=== PATIENT | male | born 1940 | race Caucasian/White ===

== ENCOUNTER 2018-11-24 11:56 | Inpatient (IN) | payer MEDICARE, MEDICAID ==
--- NOTE | 2018-11-24 12:24 | CT ---
CT BRAIN WITHOUT CONTRAST: HISTORY:Fall COMPARISON:02/01/2005 FINDINGS: There are foci of decreased attenuation in the periventricular white matter, consistent with chronic small vessel ischemic disease. No evidence of acute infarct, hemorrhage, midline shift or abnormal extra-axial fluid collections is seen. The ventricular size is appropriate and the basilar cisterns are patent. The bony calvarium is intact. There is mucosal disease in the paranasal sinuses. IMPRESSION: No CT evidence of acute intracranial process.
--- NOTE | 2018-11-24 12:35 | CT ---
CT CERVICAL SPINE NONCONTRAST: 11/24/18 HISTORY: 78-year-old male status post acute cervical trauma from fall. FINDINGS: There are no jumped or perched facets. There is no evidence of acute fracture. The vertebral body h eights are maintained. There is no prevertebral soft tissue swelling. IMPRESSION: No evidence of acute fracture or acute traumatic subluxation. jn [] POS: TPC
[2018-11-24 12:39] LABS: Hemoglobin 8.2 g/dL (14.0-18.0); Mean Corpuscular HGB CONC 30.9 g/dL (32.0-36.0); Mean Corpuscular Hemoglobin 23.1 pg (27.0-31.0); Mean Corpuscular Volume 74.7 fL (78.0-98.0); Platelet Count 315 thou/uL (130-400); RBC Distribution Width 18.4 % (11.5-14.5); Red Blood Cell (RBC) Count 3.57 mill/uL (4.70-6.10)
--- NOTE | 2018-11-24 12:39 | CT ---
CT CHEST WITH IV CONTRAST CT ABDOMEN WITH IV CONTRAST CT PELVIS WITH IV CONTRAST CORONAL AND SAGITTAL REFORMATTED FORMATIONS OF THE THORACOLUMBAR SPINE: HISTORY: Fall, chest pain, back pain, abdominal pain COMPARISON: 07/18/2004 FINDINGS: No mediastinal hematoma or intimal flap in the aorta is seen to suggest transection. No pericardial e ffusion is seen. There is a small right pleural effusion. There is intrathoracic herniation of the stomach which is also seen on the previous study. There is dilatation of the esophagus. No pneumothor aces are seen. There is atelectatic change at the lung bases. There is a 12 x 14 x 15 mm irregular nodule in the left lower lobe. A 1 cm low-density lesion is seen in the anterior aspect of the medial segment of the left lobe of th e liver. There are cysts in the left kidney. The liver, spleen, pancreas, adrenal glands and kidneys are intact. No free air or free fluid is seen in the abdomen or pelvis. The prostate is enlarged. There are degen erative changes in the spine. No acute fracture or subluxation is identified in the thoracolumbar spine. No acute bony abnormalities are noted. The gallbladder and urinary bladder appear intact. IMPRESSION: 1. No evidence of acute intrathoracic or solid organ injury. 2. Irregular left lower lobe lung nodule measuring up to 15 mm. This is a suspicious finding and shou ld be evaluated with PET scan. 3. Small right pleural effusion. 4. Intrathoracic herniation of the stomach.
--- NOTE | 2018-11-24 12:41 | RAD ---
EXAM: LEFT SHOULDER THREE VIEWS: 11/24/18 HISTORY: Injury from a fall. FINDINGS/IMPRESSION: Mild degenerative changes. No fracture, dislocation, or other significant acute osseous abnormality. POS: C
--- NOTE | 2018-11-24 12:49 | RAD ---
RADIOGRAPH CHEST 1 VIEW: Date: 11/24/18 Time: 12:17 p.m. HISTORY: 78-year-old male with chest pain. COMPARISON: 09/03/2006. FINDINGS: The previously demonstrated large hiatal hernia is much larger now, due to severe gastric distention. The entire stomach is within the thoracic cavity. There is no cardiomegaly. The large hiatal hernia obscures the left lung base and partially obscures the right medial lung base. The visualized lung fi elds are grossly clear. No pulmonary edema or pneumothorax. No cardiomegaly. IMPRESSION: Very large hiatal hernia exacerbated by severe gastric distention. Consider gastric volvulus. JN [] POS: TPC
--- NOTE | 2018-11-24 12:50 | RAD ---
RIGHT ELBOW TWO VIEWS: 11/24/18 HISTORY: Injury from a fall. Mild degenerative changes. No fracture, dislocation, joint effusion or other acute process. IMPRESSION: Unremarkable right elbow two views. POS: C
[2018-11-24 12:53] LABS: INR-International Normal Ratio 1.3; PTT 35.2 SEC (22.9-36.1); Prothrombin Time 16.3 SEC (12.0-14.7)
[2018-11-24 12:58] LABS: ALT (SGPT) Less than 7 U/L (8-55); AST (SGOT) 12 U/L (5-34); Albumin 2.6 g/dL (3.4-4.8); Alcohol Less than 10 mg/dL (Less than 10); Alkaline Phosphatase 54 U/L (40-150); Anion Gap 13 mmol/L (10-20); BUN (Urea Nitrogen) 29 mg/dL (8.4-25.7); Bilirubin, Total 0.4 mg/dL (0.2-1.2); Calc. Creatinine Clearance 0 mL/min (70-130); Calcium 7.9 mg/dL (7.8-10.44); Carbon Dioxide 20 mmol/L (23-31); Chloride 98 mmol/L (98-107); Estimated GFR-MDRD 81; Globulin 2.3 g/dL (2.4-3.5); Glucose 129 mg/dL (83-110); Lipase 4 U/L (8-78); Potassium 4.4 mmol/L (3.5-5.1); Protein, Total 4.9 g/dL (5.8-8.1); Sodium 127 mmol/L (136-145)
[2018-11-24 13:04] LABS: Band 2 % (5-11); Hypochromia SLIGHT = 6-15 cells (100X) (0-5/hpf); Lymphocytes 5 % (21-51); MDiff Complete? YES; Microcytosis SLIGHT = 6-15 cells (100X) (0-5/hpf); Monocytes 2 % (0-10); Neutrophil 91 % (42-75); Platelet Morphology Comment Appears Adequate; Polychromasia SLIGHT = 2-3 cells (100X) (0-2/hpf)
[2018-11-24] MEDS ORDERED: Ondansetron ODT 4 MG TAB PO PRN (14:25)
[2018-11-24 15:08] LABS: Iron 23 ug/dL (65-175); Iron Binding Capacity, Total 285 mcg/dL (261-462)
--- NOTE | 2018-11-24 15:21 | ULT ---
Carotid duplex sonogram HISTORY: Dizziness. TIA. FINDINGS: Right: No significant plaque. Color and spectral Doppler evaluation, peak systolic velocity of 92 cm/ s, and IC to CC ratio 1.1 suggest no hemodynamically significant stenosis within the extra cranial right ICA. Antegrade flow within the vertebral artery. Left: No significant plaque evident. Color and spectral Doppler evaluation, peak systolic velocity of 64 cm/s, and IC to CC ratio of 0.7 suggest no hemodynamically significant stenosis within the extracranial left ICA. Antegrade flow within the vertebral artery. IMPRESSION: No significant plaque apparent. No sonographic evidence of significant extracranial ICA s tenosis.
[2018-11-24 15:42] LABS: Troponin I Less than 0.010 ng/mL (< 0.028)
--- NOTE | 2018-11-24 16:05 | HP ---
PRIMARY CARE PROVIDER: Lynda Hairston. HISTORY OF PRESENT ILLNESS: [place] He relates that he falls once or twice or three times a year, has occasional dizzy spells. He states he is competent in the activities of daily living. He states he hurts in his arms and shoulders. He is oriented x3. Emergency Room nurse staff spoke with his brother, who says that he does walk, but not very far not very much. PAST MEDICAL HISTORY: No history of heart disease, diabetes, or hypertension. He has elevated cholesterol and gastroesophageal reflux disease, for which he takes Nexium 20 mg a day and pravastatin unknown dose. ALLERGIES: HE SAYS HE ALLERGIC TO CODEINE, BECAUSE IT MAKES HIM SLEEPY. PAST SURGICAL HISTORY: Bilateral inguinal hernia repair. FAMILY HISTORY: No hypertension, diabetes, or coronary artery disease. SOCIAL HISTORY: He is . His brother, Edwin Coronel, is next of kin for decision making. He does not smoke or drink alcohol. He states he wants to be a full code status. He names Edwin Coronel is a next of kin. REVIEW OF SYSTEMS: GENERAL: Dizzy spells, but no fainting. He describes some is lightheaded. No fever or chills. EYES: He has blurry vision at time. No double vision or flashing lights. No tunnel vision. EAR, NOSE, AND THROAT: No ear pain or drainage. No nasal bleeding. No trouble swallowing. CARDIAC: No chest pain, orthopnea, or paroxysmal nocturnal dyspnea. RESPIRATION: No cough, wheezing, or asthma. GASTROINTESTINAL: No nausea, vomiting, abdominal pain, diarrhea, constipation, or melena. GENITOURINARY: No hematuria or dysuria. MUSCULOSKELETAL: He states since he has had these falls, he has pain in his shoulders and upper arms. NEUROLOGIC: No history of stroke, seizures, or focal weakness. SKIN: He says he bruises easily. HEME/LYMPH: No tender or swollen lumps under his arms, neck, or groin. PHYSICAL EXAMINATION: VITAL SIGNS: His blood pressure was 77 systolic. Per EMT, he was given fluids in the ER and it is 120/82 currently, 92 pulse, 25 respirations, and temperature 98.4. HEAD, EYES, EARS, NOSE, AND THROAT: Examination of his head eyes ears, nose, and throat revealed pupils are equal, round, and reactive. Extraocular movements are intact. Sclerae are white. Tympanic membranes clear. Nose is clear. Oral mucous membranes are wet. He has edentulous. NECK: No jugular venous distention, adenopathy or thyromegaly. CHEST: Clear to percussion. Breath sounds are adequate. HEART: Regular rate and rhythm. ABDOMEN: Soft. Bowel sounds normal. No hepatosplenomegaly. No mass. No rebound. EXTREMITIES: No cyanosis, clubbing, or edema. PULSES: Carotid, radial, femoral, and dorsalis pedis pulses palpable. SKIN: Old and new hematomas on his upper chest. Soreness in the muscles of his chest. LYMPHATIC SURVEY: No tender or swollen lymph nodes in the axilla, inguinal, and cervical area. NEUROLOGIC: Cranial nerves 2 through 12 intact. Moves all extremities. Toes downgoing. DIAGNOSTIC DATA: EKG, regular sinus rhythm, left axis deviation, first degree AV block, Q-waves in V2 and V3 consistent with old anterior myocardial infarction, some nonspecific T-wave changes reviewed by me. Chest x-ray reviewed by myself reveals a massive hiatal hernia with what appears to be his entire stomach and his chest. The cardiac silhouette is normal. The nonobscured lung andersen appear to be normal. Shoulder x-ray of left shows only mild degenerative changes. Brain CT reveals no acute intracranial process. Elbow x-ray on the right is unremarkable. CT of the abdomen, chest, and pelvis reveals small right pleural effusion and intrathoracic herniation of the stomach. Cervical spine CT, no evidence of acute fracture or subluxation. LABORATORY DATA: White count is 23,000, hemoglobin is 8.2 with microcytic microchromic indices, and absolute neutrophilia. INR is 1.3. Sodium is 127, potassium is 4.4, CO2 is 20, BUN is 29, creatinine 0.9. Liver function tests are unremarkable. Lactic acid is 1.6. Plasma alcohol is unremarkable. ADMITTING DIAGNOSES: 1. Hypotension, on IV fluids. 2. Frequent falls. 3. Anemia, apparently microcytic microchromic not in need of immediate transfusion. Iron and iron binding studies will be obtained. 4. Massive hiatal hernia, apparently asymptomatic. 5. Abnormal EKG with evidence of old infarct. I do not suspect an acute process. However, we will go ahead and obtain serial troponins just to be sure. 6. Dizzy spells. Carotid ultrasounds will be done. 7. Dyslipidemia. 8. Gastroesophageal reflux disease. In addition to above, PT/OT will be consulted. Rehab consult will be obtained. Further evaluation as well as treatment will be based on future data. Job ID: [id number] MTDD
[2018-11-24] MEDS ORDERED: ISOVUE-370 76%-LOCM 1 ML ONE (16:24)
[2018-11-24 16:59] VITALS: BMI 19.9
[2018-11-24] MEDS: cefTRIAXone\\ROCEPHIN 2 GM in Sodium Chloride 0.9% 100 ML IVPB SCH (17:00)
[2018-11-24] MEDS: Sodium Chloride 0.9% 1,000 ML IV SCH (17:00)
[2018-11-24 17:58] LABS: Bilirubin Negative (Negative); Blood, Urine Large (Negative); Clarity CLEAR (Clear); Glucose, Urine (Dipstick) Negative (Negative); Leukocyte Trace (Negative); Nitrite Negative (Negative); Protein, Urine (Dipstick) Trace mg/dL (Neg-Trace); pH, Urine 5.5 (5.0-9.0)
[2018-11-24 18:00] LABS: Bacteria/HPF None Seen HPF (None Seen); Hyaline Casts/LPF 4-6 HYALINE CAST LPF (0-3 Hyaline); Pathc Cast-AUWi Flag 0.54 (0-2.49); RBC/HPF GREATER THAN 50-TNTC HPF (0-3); Squamous Epithelial 0-3 HPF (0-3)
[2018-11-24 18:02] LABS: Specific Gravity, Urine 1.047 (1.002-1.036)
[2018-11-24 18:16] LABS: Renal Epithelial None Seen HPF (0-3); Transitional Epithelial NONE SEEN HPF (0-3)
[2018-11-24] MEDS: Acetaminophen 325 MG TAB PO PRN (18:40)
[2018-11-24 18:46] LABS: Hemoglobin 7.8 g/dL (14.0-18.0); Platelet Count 333 thou/uL (130-400)
[2018-11-24 19:11] LABS: Troponin I Less than 0.010 ng/mL (< 0.028)
[2018-11-24] MEDS: traMADol HCl 50 MG TAB PO PRN (21:33)
[2018-11-24 21:57] LABS: Troponin I Less than 0.010 ng/mL (< 0.028)
[2018-11-25 00:15] LABS: Hemoglobin 7.3 g/dL (14.0-18.0); Platelet Count 293 thou/uL (130-400)
[2018-11-25] MEDS: Acetaminophen 325 MG TAB PO PRN ×3 (03:34→21:30)
[2018-11-25] MEDS: Sodium Chloride 0.9% 1,000 ML IV SCH ×2 (03:38→17:48)
[2018-11-25 06:21] LABS: Hemoglobin 7.1 g/dL (14.0-18.0); Platelet Count 282 thou/uL (130-400)
[2018-11-25 06:35] LABS: Mean Corpuscular HGB CONC 32.3 g/dL (32.0-36.0); Mean Corpuscular Hemoglobin 24.1 pg (27.0-31.0); Mean Corpuscular Volume 74.8 fL (78.0-98.0); Mean Platelet Volume 7.7 fL (7.4-10.4); Platelet Count 271 thou/uL (130-400); RBC Distribution Width 18.5 % (11.5-14.5); Red Blood Cell (RBC) Count 2.89 mill/uL (4.70-6.10); White Blood Cell (WBC) Count 12.1 thou/uL (4.8-10.8)
[2018-11-25 06:38] LABS: Anion Gap 9 mmol/L (10-20); BUN (Urea Nitrogen) 27 mg/dL (8.4-25.7); Calc. Creatinine Clearance 85 mL/min (70-130); Calcium 7.8 mg/dL (7.8-10.44); Carbon Dioxide 22 mmol/L (23-31); Chloride 103 mmol/L (98-107); Estimated GFR-MDRD Greater than 90; Glucose 112 mg/dL (83-110); Potassium 3.7 mmol/L (3.5-5.1); Sodium 130 mmol/L (136-145)
[2018-11-25 08:36] LABS: Band 4 % (5-11); Hypochromia SLIGHT = 6-15 cells (100X) (0-5/hpf); Lymphocytes 15 % (21-51); MDiff Complete? YES; Microcytosis SLIGHT = 6-15 cells (100X) (0-5/hpf); Monocytes 3 % (0-10); Neutrophil 78 % (42-75); Platelet Morphology Comment Appears Adequate; Polychromasia SLIGHT = 2-3 cells (100X) (0-2/hpf)
[2018-11-25 13:52] LABS: Iron 18 ug/dL (65-175); Iron Binding Capacity, Total 285 mcg/dL (261-462)
[2018-11-25] MEDS: cefTRIAXone\\ROCEPHIN 2 GM in Sodium Chloride 0.9% 100 ML IVPB SCH (14:01)
[2018-11-25 14:17] LABS: Folate (Folic Acid) 5.1 ng/mL (7.0-31.4)
[2018-11-25] MEDS ORDERED: Folic Acid 1 MG TAB PO SCH (14:30)
[2018-11-25] MEDS ORDERED: Cyanocobalamin (Vitamin B-12) 1,000 MCG TAB PO SCH (14:30)
[2018-11-25] MEDS ORDERED: Vancomycin HCl 1 GM in Premix Bag 1 BAG IVPB SCH (16:15)
[2018-11-25] MEDS ORDERED: Vancomycin HCl 1.25 GM in Sodium Chloride 0.9% 250 ML 250 ML IVPB SCH (17:15)
--- NOTE | 2018-11-25 17:31 | PDOC.GSPN ---
Surgery Progress Note: Subj - Subjective Narrative: c/o bloating, anorexia and feeling full fast Surgery Progress Note: Obj - Vital signs Vital signs: Vital Signs - Most Recent Temp Pulse Resp BP Pulse Ox 98.8 F 86 18 128/87 95 11/25/18 17:12 11/25/18 17:12 11/25/18 17:12 11/25/18 17:12 11/25/18 17:12 - Physical Exam General: no distress Cardiovascular: regular rate and rhythm Respiratory: coarse breath sounds Abdomen: soft, non tender, nondistended Surgery Progress Note: Results - Labs Result Diagrams: 11/25/18 05:51 11/25/18 05:51 Lab results: Laboratory Results - last 24 hr 11/25/18 11/25/18 11/25/18 05:51 05:51 05:51 WBC 12.1 H RBC 2.89 L Hgb 7.0 L 7.1 L Hct 21.6 L 21.7 L MCV 74.8 L MCH 24.1 L MCHC 32.3 RDW 18.5 H Plt Count 271 282 MPV 7.7 Neutrophils % (Manual) 78 H Band Neuts % (Manual) 4 L Lymphocytes % (Manual) 15 L Monocytes % (Manual) 3 Hypochromia SLIGHT = 6-15 cells Plt Morphology Comment Appears Adequate Polychromasia SLIGHT = 2-3 cells Microcytosis SLIGHT = 6-15 cells Sodium 130 L Potassium 3.7 Chloride 103 Carbon Dioxide 22 L Anion Gap 9 L BUN 27 H Creatinine 0.69 L Estimated GFR (MDRD) Greater than 90 Glucose 112 H Calcium 7.8 Iron TIBC Ferritin Vitamin B12 Folate 11/25/18 11/25/18 11/25/18 13:18 13:18 13:18 WBC RBC Hgb Hct MCV MCH MCHC RDW Plt Count MPV Neutrophils % (Manual) Band Neuts % (Manual) Lymphocytes % (Manual) Monocytes % (Manual) Hypochromia Plt Morphology Comment Polychromasia Microcytosis Sodium Potassium Chloride Carbon Dioxide Anion Gap BUN Creatinine Estimated GFR (MDRD) Glucose Calcium Iron 18 L TIBC 285 Ferritin 27.20 Vitamin B12 340 Folate 5.10 L Surgery Progress Note: A/P - Problem (1) Hiatal hernia Current Visit: Yes Code(s): K44.9 - DIAPHRAGMATIC HERNIA WITHOUT OBSTRUCTION OR GANGRENE Status: Acute - Plan Plan: Not amenable to repair from an abdominal approach. Will discuss with Dr. Lynn. Could refer for outpatient repair by Chest surgeon in [place] or [place].
--- NOTE | 2018-11-25 18:02 | CON ---
DATE OF CONSULTATION: 11/25/2018 REASON FOR CONSULTATION: Anemia. CONSULTING PHYSICIAN: Camacho Sanders MD HISTORY OF PRESENT ILLNESS: The patient is a 78-year-old male with past medical history of hyperlipidemia, GERD, and peptic ulcer disease (diagnosed in 2004), presenting with anemia. He was initially admitted to the hospital after sustaining a fall yesterday with bruising to his right upper extremity and chest. However upon evaluation in the ER, routine labs noted that he was significantly anemic with a current hemoglobin of approximately 7. Upon questioning the patient, he states that he did have some hematuria yesterday with the initiation of an in and out catheterization for urine specimen collection, but does not endorse any other additional episodes of bleeding. He currently denies any hematemesis, melena, or hematochezia. However, he does endorse early satiety that has been present for the last few months, increased shortness of breath/dyspnea on exertion for the last 2 to 3 months and possible constipation also during this time period. He currently denies any nausea, vomiting, fevers, chills, abdominal pain, dysphagia, or odynophagia. REVIEW OF SYSTEMS: A 10-category review of systems was obtained with all responses negative except for the pertinent positives as listed in HPI. PAST MEDICAL HISTORY: As per HPI. PAST SURGICAL HISTORY: Bilateral inguinal hernia repair. FAMILY HISTORY: Denies any GI malignancies. SOCIAL HISTORY: Denies any tobacco, alcohol, or illicit drug use. OUTPATIENT MEDICATIONS: Reviewed. ALLERGIES: CODEINE. PHYSICAL EXAMINATION: VITAL SIGNS: Temperature 98.3, pulse 84, blood pressure 117/75, respiratory rate 18, and saturating 96% on room air. GENERAL: The patient was lying in bed, in no acute distress. Alert and oriented x3. HEENT: Neck supple. No JVD or scleral icterus noted. Normocephalic and atraumatic. CARDIOVASCULAR: Regular rate and rhythm with no discernible murmurs, gallops, or rubs. RESPIRATORY: Clear to auscultation bilaterally with no discernible wheezes or rales. ABDOMEN: Normoactive bowel sounds. Soft, nontender, and nondistended. EXTREMITIES: No cyanosis, clubbing, or edema. LABORATORY DATA: CBC with a white blood cell count of 12.1, hemoglobin 7, hematocrit 21.6, and platelets 271. INR 1.3. Chemistry with a sodium of 130, potassium 3.7, chloride 103, CO2 of 22, BUN 27, creatinine 0.69, and glucose 112. Iron 18, ferritin 27, TIBC 285, folate 5.1, and vitamin B12 of 340. IMAGING DATA: Chest x-ray was obtained on November 24, 2018, which showed a large hiatal hernia that has increased in size with the entire stomach within the thoracic cavity consider gastric volvulus at this time. A CT of the abdomen and pelvis was also obtained on November 24, 2018, which showed intrathoracic herniation of the stomach with dilation of the esophagus, also noted was a 12 x 14 x 15 mm irregular nodule within the left lower lobe. ASSESSMENT AND PLAN: The patient is a 78-year-old male with past medical history of hyperlipidemia, GERD, and peptic ulcer disease, presenting with anemia and a large intrathoracic hiatal hernia. Anemia: The patient is presenting with no complaints of overt gastrointestinal bleeding, but was noted to have a significant decrease in H and H on routine labs on admission. He is currently presenting with decreased MCV, elevated RDW, low iron, low normal ferritin, but low TIBC, which is a mixed picture for both iron deficiency anemia and anemia of chronic disease. When coupled with a low folate, this could be potentially causative of his anemia. However, with his entire stomach, now resting within the thoracic cavity, there could be the possibility of compression of the small bowel as it traverses into the abdominal cavity and thereby creating a functional Migue erosions, which could generate iron deficiency anemia. This is further strengthen by an elevated BUN to creatinine ratio, which could be indicative of an upper gastrointestinal bleed. Recommendations: 1. We would continue to trend H and H and transfuse as necessary to maintain an H and H of 7/21. 2. Continue to monitor clinically for signs of active GI bleeding. 3. We would proceed with EGD tomorrow for evaluation of the upper GI tract and evaluation for possible Migue erosions contributing to iron deficiency anemia. 4. I have conferred with the General Surgery Service here about repair of his intrathoracic hiatal hernia, which is not performed at this institution. The patient would need to be transferred to [place] for further management of this condition. 5. We will hold off on colonoscopy for right now given the large hiatal hernia and possibility of obstruction given his symptoms of early satiety. We will continue to follow. Please call with any questions. Job ID: [id number]
[2018-11-25] MEDS: traMADol HCl 50 MG TAB PO PRN (21:29)
[2018-11-25] MEDS: Folic Acid 1 MG TAB PO SCH (21:29)
--- NOTE | 2018-11-25 22:30 | PDOC.PN ---
- Subjective Encounter Start Date: 11/25/18 Encounter Start Time: 14:15 Patient seen and examined for gen weakness/multiple falls. No N/V/Melena. No CP. No new complaints. No overnight events - Objective Resuscitation Status - Order Detail: 11/24/18 14:08 Resuscitation Status Routine Resuscitation Status: FULL: Full Resuscitation MAR Reviewed: Yes Vital Signs & Weight: Vital Signs (12 hours) Temp Pulse Resp BP Pulse Ox 11/25/18 20:00 98.6 F 84 18 122/81 93 L 11/25/18 17:12 98.8 F 86 18 128/87 95 11/25/18 12:59 98.3 F 84 18 117/75 96 Weight Weight 147 lb 1.6 oz I&O: 11/24/18 11/25/18 11/26/18 06:59 06:59 06:59 Intake Total 1090 1355 Balance 1090 1355 Result Diagrams: 11/26/18 17:21 11/26/18 04:28 Radiology Reviewed by me: Yes (CT abd - reviewed, Carotid - neg) Phys Exam - Physical Examination Constitutional: NAD Respiratory: no wheezing, no rales, no rhonchi, clear to auscultation bilateral Cardiovascular: RRR, no rub no heaves/pulsations Gastrointestinal: soft, non-tender, no distention, positive bowel sounds Musculoskeletal: no edema Neurological: non-focal, normal sensation, moves all 4 limbs Psychiatric: normal affect, A&O x 3 Dx/Plan - Plan DVT proph w/SCDs IMPRESSION: Gen weakness/Recurrent falls - multifactorial Hypotension prob due to Sepsis vs dehydration Sepsis with 1/2 CN Staph bacteremia Symtomatic anemia ?chronic Folic acid def Low normal Vit B12 Lung nodule - PET scan as outpt recom. Moderate PEM HH HLD GERD Hematuria prob due to urine cath in ER Chronic pain syndrome Hyponatremia - prob due to dehydration PLAN: Start Vancomycin Cont IV Ceftriaxone GI consult for Anemia Iron profile Replace Folic acid/Vit B12 AM labs PT/OT SNF Eval Patient denies syncope prior to admission. Review of Systems - Review of Systems Respiratory: negative: Cough, Dry, Shortness of Breath, Hemoptysis, SOB with Excertion, Pleuritic Pain, Sputum, Wheezing Cardiovascular: negative: chest pain, palpitations, orthopnea, paroxysmal nocturnal dyspnea, edema, light headedness, other Gastrointestinal: negative: Nausea, Vomiting, Abdominal Pain, Diarrhea, Constipation, Melena, Hematochezia, Other - Medications/Allergies Allergies/Adverse Reactions: Allergies Allergy/AdvReac Type Severity Reaction Status Date / Time codeine Allergy Verified 03/30/14 17:20 meperidine HCl [From Demerol] Allergy Verified 03/30/14 17:20 Medications: Current Medications Acetaminophen (Tylenol) 650 mg PO Q4H PRN PRN Reason: Headache/Fever/Mild Pain (1-3) Last Admin: 11/25/18 21:30 Dose: 650 mg Cyanocobalamin (Vitamin B-12) 1,000 mcg PO DAILY [facility] Folic Acid (Folvite) 1 mg PO BID [facility] Last Admin: 11/25/18 21:29 Dose: 1 mg Sodium Chloride (Normal Saline 0.9%) 1,000 mls @ 75 mls/hr IV .[id number] [facility] Last Admin: 11/25/18 17:48 Dose: 1,000 mls Ceftriaxone Sodium 2 gm/ (Sodium Chloride) 100 mls @ 200 mls/hr IVPB Q24HR [facility] Last Admin: 11/25/18 14:01 Dose: 100 mls Vancomycin HCl 1 gm/ Device 200 mls @ 200 mls/hr IVPB 0500,1700 [facility] Miscellaneous Medication (Pharmacy To Dose) 1 each IVPB .DAILY PRN PRN Reason: LABS Ondansetron HCl (Zofran Odt) 4 mg PO Q6H PRN PRN Reason: Nausea/Vomiting Tramadol HCl (Ultram) 50 mg PO DAILY PRN PRN Reason: Pain Last Admin: 11/25/18 21:29 Dose: 50 mg
[2018-11-26] MEDS: traMADol HCl 50 MG TAB PO PRN (04:11)
[2018-11-26] MEDS: Acetaminophen 325 MG TAB PO PRN ×3 (04:12→21:00)
[2018-11-26] MEDS: Vancomycin HCl 1 GM in Premix Bag 1 BAG IVPB SCH ×2 (04:15→18:02)
[2018-11-26 05:26] LABS: #Eosinphils 0.1 thou/uL (0.0-0.7); #Lymphocytes 1.7 thou/uL (1.20-3.40); #Monocytes 1.2 thou/uL (0.11-0.59); #Neutrophils 13.1 thou/uL (1.40-6.50); %Basophils 0.3 % (0.0-1.0); %Eosinophils 0.9 % (0.0-10.0); %Lymphocytes 10.7 % (21.0-51.0); %Monocytes 7.3 % (0.0-10.0); %Neutrophils 80.9 % (42.0-75.0); Hemoglobin 7.2 g/dL (14.0-18.0); Mean Corpuscular HGB CONC 30.4 g/dL (32.0-36.0); Mean Corpuscular Volume 75.7 fL (78.0-98.0); Mean Platelet Volume 7.9 fL (7.4-10.4); Platelet Count 341 thou/uL (130-400); RBC Distribution Width 18.8 % (11.5-14.5); Red Blood Cell (RBC) Count 3.12 mill/uL (4.70-6.10); White Blood Cell (WBC) Count 16.2 thou/uL (4.8-10.8)
[2018-11-26 05:40] LABS: ALT (SGPT) 8 U/L (8-55); AST (SGOT) 19 U/L (5-34); Albumin 2.9 g/dL (3.4-4.8); Alkaline Phosphatase 55 U/L (40-150); Anion Gap 11 mmol/L (10-20); BUN (Urea Nitrogen) 27 mg/dL (8.4-25.7); Bilirubin, Total 0.4 mg/dL (0.2-1.2); Calc. Creatinine Clearance 75 mL/min (70-130); Calcium 8.5 mg/dL (7.8-10.44); Carbon Dioxide 24 mmol/L (23-31); Chloride 102 mmol/L (98-107); Estimated GFR-MDRD Greater than 90; Globulin 2.7 g/dL (2.4-3.5); Glucose 141 mg/dL (83-110); Magnesium 1.9 mg/dL (1.6-2.6); Phosphorus 2.6 mg/dL (2.3-4.7); Potassium 3.9 mmol/L (3.5-5.1); Protein, Total 5.6 g/dL (5.8-8.1); Sodium 133 mmol/L (136-145)
[2018-11-26] MEDS: Sodium Chloride 0.9% 1,000 ML IV SCH (06:16)
[2018-11-26] MEDS ORDERED: Cyanocobalamin (Vitamin B-12) 1,000 MCG TAB PO SCH (09:00)
[2018-11-26] MEDS: Folic Acid 1 MG TAB PO SCH (09:15)
--- NOTE | 2018-11-26 09:59 | PQF ---
CORDELL LYNN MALIK MD [id number] CLINICAL DOCUMENTATION IMPROVEMENT CLARIFICATION FORM: ICD-10 Updated PLEASE DO AN ADDENDUM TO THE PROGRESS NOTE WITH ANY DOCUMENTATION UPDATES OR ADDITIONS AND CARRY THROUGH TO DC SUMMARY. THANK YOU. DATE: 11/26 ATTN: DR. SAGAR VALDERRAMA Please exercise your independent, professional judgment in responding to the clarification form. Clinical indicators are provided on the bottom of this form for your review. Please check appropriate box(s): [ ] Hyponatremia please specify etiology, if known [ ] Hyponatremia due to SIADH (Syndrome of Inappropriate Secretion of Antidiuretic Hormone) [ ] Other diagnosis [ ] Unable to determine In addition, please specify: Present on Admission (POA): [ ] Yes [ ] No [ ] Unable to determine CLINICAL INDICATORS - SIGNS / SYMPTOMS / LABS SODIUM: 127 - 133 (11/24 - ) RISKS: SEPSIS DEHYDRATION WEAKNESS W/ RECURRENT FALLS TREATMENT: IVF (NS 11/24 - PRESENT; 1.5 L NS VIA EMS) SERIAL BASMET LABS (11/24 - PRESENT) THANK YOU! Lynda (This form is maintained as a part of the permanent medical record) 2014 [employer]. All Rights Reserved Lynda Bobo RN, [email or web address] Office: [phone] [facility] CAMPUSJayde
[2018-11-26] MEDS ORDERED: PROPOFOL 200 MG/20 ML VIAL ONE (10:38)
[2018-11-26] MEDS ORDERED: Lidocaine 1% PF 5 ML VIAL ONE (10:38)
[2018-11-26] MEDS ORDERED: Sodium Chloride 0.9% (PF) 10 ML VIAL FS PRN (14:39)
[2018-11-26] MEDS: cefTRIAXone\\ROCEPHIN 2 GM in Sodium Chloride 0.9% 100 ML IVPB SCH (15:36)
[2018-11-26] MEDS ORDERED: traMADol HCl 50 MG TAB PER TUBE PRN (17:00)
[2018-11-26] MEDS: D5 0.9% NS w/ 20 mEq KCl 1,000 ML IV SCH (18:56)
--- NOTE | 2018-11-26 19:07 | PRG ---
DATE OF SERVICE: 11/26/2018 SUBJECTIVE: The patient denies any new complaints except for some discomfort in his lower abdomen. He underwent EGD. NG tube was placed by GI after the EGD due to large amount of gastric content. REVIEW OF SYSTEMS: The patient denies any chest pain, shortness of breath, palpitations. No new focal deficit reported. OBJECTIVE: VITAL SIGNS: Temperature 97.8, pulse 110-115, respirations 17, blood pressure 114/76, O2 saturation 95% on room air. GENERAL: 78-year-old male, in no apparent distress. Appears pale. HEENT: Head, atraumatic, normocephalic. Sclerae anicteric. NECK: Supple. No JVD. No carotid bruit. LUNGS: Showed diminished air entry at bilateral bases. No wheezing, rales, rhonchi. HEART: S1, S2 present. Tachycardic. No heaves or pulsation. 2/6 systolic murmur over the mitral area. ABDOMEN: Soft. Mild tenderness in the lower quadrant. No rebound or guarding. No costovertebral angle tenderness. EXTREMITIES: No edema or calf tenderness. NEUROLOGY: Grossly nonfocal. LABORATORY FINDINGS: Hemoglobin 7.2 earlier, repeat hemoglobin last hour was 8.0. Sodium 133, BUN 27, creatinine 0.78, folic acid 5.1, vitamin B12 340. Urine culture showed less than 10,000 mixed skin derek. Carotid Doppler was negative for hemodynamically significant stenosis. CT of the chest, abdomen, and pelvis showed intrathoracic herniation of the stomach along with irregular left lower lobe lung nodule measuring up to [address] cervical spine was negative. Chest x-ray showed very large hiatal hernia. IMPRESSION: 1. Generalized weakness with recurrent falls, multifactorial. 2. Anemia secondary to gastrointestinal bleeding. The patient underwent esophagogastroduodenoscopy that showed erosive esophagitis with active bleeding. 3. Large hiatal hernia with approximately 2 L of gastric content. NG tube was placed during the EGD. 4. Suspected sepsis with one of two coagulase-negative staphylococcal bacteremia. Antibiotics have been discontinued by Infectious Disease. 5. Acute blood loss anemia. 6. Folic acid deficiency. 7. Low normal vitamin B12. 8. Suspicious lung nodule. A PET scan as outpatient is recommended. 9. Moderate protein-energy malnutrition. 10. Hyperlipidemia. 11. Gastroesophageal reflux disease. 12. Gross hematuria, probably secondary to urinary catheterization in the emergency room. 13. Urinary retention. The patient has a large postvoid residual, more than 1000 mL. 14. Chronic pain syndrome. 15. Hyponatremia secondary to dehydration. 16. Hypotension, probably secondary to intravascular volume depletion. PLAN: The patient will be transferred to intermediate care unit due to tachycardia. We will monitor H and H closely. Continue IV PPIs. We will initiate the transfer to [facility] per GI recommendation. Transfuse as needed. I attempted to call the patient's brother with no answer. Add dextrose to IV fluids. Recheck labs in a.m. Multivitamin IV daily. Plan was discussed with the patient, he stated understanding. Job ID: [id number]
[2018-11-26 19:45] VITALS: BP 102/65
[2018-11-26] MEDS: Pantoprazole 40 MG VIAL IVP SCH (20:54)
--- NOTE | 2018-11-26 21:17 | OP ---
DATE OF PROCEDURE: 11/26/2018 PROCEDURE PERFORMED: Esophagogastroduodenoscopy (diagnostic). INDICATIONS FOR PROCEDURE: Anemia, abnormal GI imaging (large hiatal hernia). DESCRIPTION OF PROCEDURE: After the risks and benefits of the procedure were explained to the patient including risks of bleeding, infection, perforation, reactions to anesthesia, aspiration and/or pain, informed consent was obtained. The patient was then taken to the endoscopy suite, where deep sedation was administered via propofol and anesthesia support. Once adequate sedation was achieved, the standard gastroscope was introduced into the mouth with intubation of the esophagus and stomach. However, intubation of the duodenum could not be performed due to the patient's altered anatomy. The patient did exhibit some vomiting of black-colored fluid during the course of this procedure that was suctioned with both of the endoscope and Yankauer. The patient tolerated the procedure well with no episodes of hypoxia or hypotension. Upon conclusion of the procedure, all equipment was removed from the patient and he was transferred to PACU in satisfactory condition. FINDINGS: Esophagus: Normal-appearing mucosa was seen in the proximal esophagus; however, in the mid and distal esophagus, there was some retained dark black fluid that was easily suctioned with good visualization of the esophageal mucosa. In the mid and distal esophagus, there were scattered erosions, some in a confluent manner, but none extending more than and involving the entire circumference of the esophagus itself. The degree of these erosions was greater in the distal esophagus rather than the mid esophagus. Within the distal esophagus, there were some scattered ulcerations as well with active oozing of blood from these ulcerations themselves. However, these ulcerations were very superficial and did not exhibit any other high-risk stigmata of rebleeding with the bleeding stopping during the course of this procedure without any intervention. Otherwise, there was no evidence of mass lesions or extrinsic compression of the esophagus. Stomach: A large amount of retained solid and liquid food was seen within the stomach itself with a significant amount of black liquid also seen with approximately 2 L extracted during this examination. With a large amount of retained food within the stomach, it precluded visualization of the gastric mucosa preventing visualization of approximately 50% of the lining of the stomach. Of the mucosa visualized, normal-appearing mucosa was seen in the gastric cardia, fundus (albeit significantly reduced due to food), body, greater curvature, incisura, and antrum. The antrum was slightly deformed with a more inferior curve to its position when compared to normal anatomy. There was also a significant amount of retained food in this region preventing any further visualization. Of the mucosa seen, there was no evidence of erosions, ulcerations, mass lesions, or active/recent bleeding. Duodenum: Intubation of the esophagus could not be performed during this examination due to the patient's significantly altered anatomy. IMPRESSION: 1. Leoti grade D erosive esophagitis with active oozing of blood in the distal esophagus (most likely reason for the patient's anemia). 2. Large hiatal hernia with a significant amount of both solid and liquid food retained preventing visualization. 3. Inability to intubate the duodenum due to the patient's altered anatomy. RECOMMENDATIONS: 1. We would place the patient on n.p.o. status given the significant amount of retained food within the stomach. 2. We would start the patient on PPI 40 mg b.i.d. given the severe erosive esophagitis secondary to reflux. 3. We would continue to trend H and H and transfuse as necessary to maintain an H and H of 7/21. 4. Continue to monitor clinically for signs of active GI bleeding. 5. We will place an NG tube for further drainage of the stomach and prevent aspiration. 6. We would consult the General Surgery or Cardiothoracic Surgery Services for correction of his large hiatal hernia. If those could not be done here, then we would recommend transfer to [place] for more definitive management. We will continue to follow. Please call with any questions. Job ID: [id number]
[2018-11-26 21:41] LABS: Hemoglobin 7.4 g/dL (14.0-18.0)
--- NOTE | 2018-11-27 00:07 | CON ---
DATE OF CONSULTATION: 11/26/2018 REASON FOR CONSULTATION: Possible sepsis. HISTORY OF PRESENT ILLNESS: A 78-year-old who has a history of hyperlipidemia and has had recurrent episodes of syncopal or near syncopal events. The latest one prompted his admission to this hospital. [place]. He had fallen a few days before in his home, bruised his anterior chest. On arrival, he was hypotensive and recovered pretty quickly after IV fluids. There had been no seizure activity reported. No aspiration. No abdominal pain. No respiratory symptoms or genitourinary symptoms. No back pain. No other issues. PAST MEDICAL HISTORY: Includes hyperlipidemia, GERD. ALLERGIES: CODEINE, BUT NOT TRUE ALLERGY, JUST A ENGINE TESTING [employer]PER[employer]OR SIDE EFFECTS. FAMILY HISTORY: Noncontributory. PAST SURGICAL HISTORY: Hernia repair. SOCIAL HISTORY: . Never smoker. CURRENT MEDICATIONS: 1. Tylenol. 2. DuoNeb. 3. Ceftriaxone. 4. Folvite. 5. Zofran. 6. Protonix. 7. Ultram. 8. Vancomycin. PHYSICAL EXAMINATION: VITAL SIGNS: T-max 99.8, blood pressure 114/76, pulse 81, respirations 17, O2 saturation 95. SKIN: Shows the areas of bruising in the anterior chest area. Little ulcerated area in the right elbow with scab covering it, but no inflammatory changes noted. Other areas of bruising from the recurrent falls are noted. No lymphadenopathy. Ocular movements are conjugate. He has NG tube in place. Sclerae white. Oral cavity with no [place] teeth remaining in place. Oral mucosa is normal. NECK: Supple. No jugular venous distention. LUNGS: Symmetric. Clear breath sounds. HEART: S1 and S2, regular rate. ABDOMEN: Soft. No murmurs. No organomegaly in the question of bladder distention. No genital abnormalities. EXTREMITIES: He moves extremities equally. Plantar responses are indifferent. Dorsalis pedis 1+. NEUROLOGIC: He is awake. He knows he is in [place], little bit of difficulty speaking because of his NG tube. NG tube with kind of darkish reddish secretions. LABORATORY DATA: White cell count is 23,000 down to 16, hemoglobin 7.2, MCV 75, platelets 341 with 80% neutrophils. INR 1.3. Sodium 133, creatinine 0.78, magnesium 1.9, albumin 2.9. B12 of 340. Urinalysis with 7 to 10 wbc's. Alcohol level less than 10. Microbiology with coagulase-negative Staph, one out of two cultures from November 24. IMAGING STUDIES: Include a chest x-ray with a very large hiatal hernia with severe gastric distention. Chest, abdomen, and pelvis CT scan with no intrathoracic or solid organ injury. Irregular left lower lobe lung nodule which is suspicious and measures 1.5 cm. Intrathoracic herniation of stomach noted. Cervical spine CT with no acute fracture or traumatic. ASSESSMENT: Recurrent episodes of syncopal events which have led to falls both at home, as well as in the field. The most recent one led to his admission at the time he had elevation of white cell count with a mild left shift. Blood cultures thus far negative. Serendipitous finding of large diaphragmatic hernia with herniation of the entire stomach into the chest. DISCUSSION: Differential diagnosis includes vasovagal syncope associated with gastric herniation into the chest, large diaphragmatic hernias can be associated with vasovagal syncopal events related to the mechanical factors associated with herniation in the vagal nerve. There are numerous reports in that regard with this association. I think that an infectious process is less likely and would recommend discontinuation of antimicrobial therapy at this point. The leukocytosis probably related to the hypotension and acute stress associated with event and demargination, one would expect resolution of the process down the road. He will need a repair of this hernia. Otherwise, he will continue experiencing those episodes, looks like he will have to be transferred to [place] for that procedure. Job ID: [id number]
[2018-11-27 04:45] LABS: #Monocytes 0.9 thou/uL (0.11-0.59); #Neutrophils 12.5 thou/uL (1.40-6.50); %Basophils 0.1 % (0.0-1.0); %Eosinophils 0.2 % (0.0-10.0); %Lymphocytes 7.1 % (21.0-51.0); %Monocytes 6.1 % (0.0-10.0); %Neutrophils 86.6 % (42.0-75.0); Hemoglobin 6.5 g/dL (14.0-18.0); Mean Corpuscular Hemoglobin 24.4 pg (27.0-31.0); Mean Corpuscular Volume 76.3 fL (78.0-98.0); Mean Platelet Volume 7.9 fL (7.4-10.4); Platelet Count 240 thou/uL (130-400); RBC Distribution Width 19.3 % (11.5-14.5); Red Blood Cell (RBC) Count 2.66 mill/uL (4.70-6.10); White Blood Cell (WBC) Count 14.5 thou/uL (4.8-10.8)
[2018-11-27 04:56] LABS: Phosphorus 2.6 mg/dL (2.3-4.7)
[2018-11-27 04:59] LABS: Anion Gap 11 mmol/L (10-20); BUN (Urea Nitrogen) 28 mg/dL (8.4-25.7); Calc. Creatinine Clearance 57 mL/min (70-130); Calcium 8.1 mg/dL (7.8-10.44); Carbon Dioxide 26 mmol/L (23-31); Chloride 109 mmol/L (98-107); Estimated GFR-MDRD 70; Glucose 313 mg/dL (83-110); Magnesium 1.6 mg/dL (1.6-2.6); Potassium 4.6 mmol/L (3.5-5.1); Sodium 141 mmol/L (136-145)
[2018-11-27] MEDS: D5 0.9% NS w/ 20 mEq KCl 1,000 ML IV SCH (05:03)
[2018-11-27] MEDS ORDERED: D5 1/2 NS w/20 mEq KCL 1,000 ML IV SCH (08:15)
[2018-11-27] MEDS ORDERED: Piperacillin/Tazobactam 3.375 GM in Sodium Chloride 0.9% 100 ML IVPB SCH (09:00)
[2018-11-27] MEDS ORDERED: Multivitamins, Adult 10 ML in Sodium Chloride 0.9% 500 ML IV SCH (09:00)
--- NOTE | 2018-11-27 09:02 | RAD ---
EXAM: Single view of the chest HISTORY: Shortness of breath COMPARISON: 11/24/2018 FINDINGS: Single view of the chest shows an enlarged but stable cardiomediastinal silhouette. Volume loss is seen in the left thorax with apparent elevation the left hemidiaphragm. An NG tube is seen curled in the lower chest which likely resides within a large hiatal hernia. This does not follow the course of the trachea and left mainstem bronchus. Atelectasis versus an infiltrate is seen in the lower aspect of the left thorax with a likely adjacent pleural effusion. The bones are unremarkable. IMPRESSION: 1. Volume loss in the left chest with adjacent pleural effusion versus infiltrate. 2. Large hiatal hernia
[2018-11-27] MEDS: Pantoprazole 40 MG VIAL IVP SCH (09:04)
[2018-11-27 10:57] VITALS: TEMP 99.2
--- NOTE | 2018-11-27 13:17 | DIS ---
DATE OF ADMISSION: 11/24/2018 DATE OF DISCHARGE: 11/27/2018 DISCHARGE DISPOSITION: [facility]. INPATIENT CONSULTANTS: 1. Gastroenterology, Dr. Lynn. 2. General Surgery, Dr. Lewis. INPATIENT PROCEDURES: On November 26, 2018, the patient underwent esophagogastroduodenoscopy, that showed grade D erosive esophagitis with active oozing of blood in the distal esophagus. It also showed large hiatal hernia with significant amount of both solid and liquid food retained preventing visualization. DIAGNOSTIC TESTS: Chest x-ray showed large hiatal hernia with questionable infiltrates at the left lung base. CT scan of the chest, abdomen, and pelvis on November 24, 2018, showed irregular left lower lobe lung nodule measuring 15 mm. A PET scan as outpatient is recommended. It also showed intrathoracic herniation of the stomach. Carotid Doppler was negative for hemodynamically significant stenosis. BRIEF HOSPITAL COURSE: The patient is a 78-year-old male with hyperlipidemia, GERD, and hiatal hernia, presented to the hospital with generalized weakness and recurrent falls. The patient denied any syncope. Please refer to the History and Physical dated November 24, 2018, by Dr. Maggie Espinoza for further details. The patient was admitted to the hospital with diagnosis of generalized weakness of unclear etiology. His workup was consistent with anemia. He was also found to have dehydration, that improved with IV hydration. Gastroenterology team was consulted due to significant anemia. His hemoglobin on admission was 8.2. However, next day after IV hydration, it dropped to 7.0. On the day of discharge, it was 6.5, requiring 2 units of PRBC. He underwent EGD as discussed above. Per GI recommendation, the patient will be transferred to [facility] for definitive treatment for hiatal hernia. The patient also had episodes of confusion in the last 24 hours. He also pulled the PEG tube, requiring replacement. He developed low-grade fever over the last 24 hours. Zosyn has been started today for possible aspiration. Total time coordinating the discharge of this patient was 37 minutes. FINAL DIAGNOSES: 1. Generalized weakness with recurrent falls, multifactorial. 2. Hypotension secondary to dehydration. 3. 1/2 coagulase-negative Staphylococcus bacteremia. Probably contamination per Infectious Disease. Antibiotics were discontinued by Infectious Disease. 4. Symptomatic anemia secondary to acute gastrointestinal blood loss. 5. Folic acid deficiency. The patient will require folic acid supplementation once able to tolerate p.o. 6. Low normal vitamin B12. His vitamin B12 was 340. 7. Lung nodule. A PET scan as outpatient is recommended. 8. Moderate protein-energy malnutrition. 9. Large hiatal hernia with grade D erosive esophagitis. 10. Suspected aspiration pneumonia, started on Zosyn today. 11. Hyperlipidemia. 12. History of gastroesophageal reflux disease. 13. Mild gross hematuria secondary to intermittent urinary catheterization in the emergency room. 14. Urinary retention. The patient had a Villarreal catheter placed yesterday. His bladder scan showed greater than 1 L. After Villarreal catheter placement, he drained approximately 1700 mL urine yesterday. 15. Hyponatremia. His sodium on admission was 127. At discharge, it was 141. 16. Chronic pain syndrome. Plan of care was discussed with the patient in detail. He stated understanding. Job ID: [id number]
--- NOTE | 2018-11-27 15:31 | EKG ---
Test Reason : FALL Blood Pressure : / mmHG Vent. Rate : 089 BPM Atrial Rate : 089 BPM P-R Int : 226 ms QRS Dur : 112 ms QT Int : 392 ms P-R-T Axes : 090 -43 088 degrees QTc Int : 476 ms Sinus rhythm with 1st degree A-V block Left axis deviation Anteroseptal infarct , age undetermined Abnormal ECG Confirmed by ROSHAN CHÁVEZ MD ([id number]), editorial assistant BUSTER RICCI ([id number]) on 11/27/2018 3:31:35 PM Referred By: KYLER Confirmed By:ROSHAN CHÁVEZ MD
== END 2018-11-27 13:30 | disposition home or self-care (01) | DRG 380 ==
LOC: ERS 11:56 → T4-B 14:15 → IMCU/EMU 11-26 18:18
PROVIDERS: ADMIT Internal Medicine; ATTEND Internal Medicine
PROC: 0DJ08ZZ Inspection of Upper Intestinal Tract, Via Natural or Artificial Opening Endoscopic (ICD-10-PCS; principal; 2018-11-26)
DX: K22.11 Ulcer of esophagus with bleeding (principal); J69.0 Pneumonitis due to inhalation of food and vomit; D62 Acute posthemorrhagic anemia; E44.0 Moderate protein-calorie malnutrition; Z68.1 Body mass index [BMI] 19.9 or less, adult; E87.1 Hypo-osmolality and hyponatremia; K44.9 Diaphragmatic hernia without obstruction or gangrene; E86.0 Dehydration; Z91.81 History of falling; K21.9 Gastro-esophageal reflux disease without esophagitis; I95.9 Hypotension, unspecified; E78.5 Hyperlipidemia, unspecified; E53.8 Deficiency of other specified B group vitamins; R31.0 Gross hematuria; G89.4 Chronic pain syndrome
CPT/HCPCS: 36415; 36430; 51701; 70450; 71045; 71260; 72125; 74177; 80048; 80053; 80307; 81003; 81015; 82274; 82607; 82728; 82746; 83540; 83550; 83605; 83690; 83735; 84100; 84484; 85007; 85025; 85027; 85610; 85730; 86140; 86850; 86900; 86901; 87040; 87086; 87149; 93005; 93880; 96361; 96365; C9113; G0390; J0696; J2001; J2543; J2704; J3370; J3490; J7050; P9016; Q9966

== ENCOUNTER 2019-01-19 10:11 | Observation (INO) | payer MEDICARE, MEDICAID ==
--- NOTE | 2019-01-19 10:44 | CT ---
Exam: Head CT without contrast HISTORY: Trauma. Fall. Pain. COMPARISON: 11/24/2018 FINDINGS: Hemorrhage: No intraparenchymal hemorrhage or extra-axial hematoma. Brain parenchyma: Cortical richards-white matter differentiation is preserved. No mass effect or midline shift. Basilar cisterns are patent.Age-appropriate atrophy. There are chronic small vessel ischemic changes of the white matter Ventricular system: Ventricles and sulci are patent and symmetric. Calvarium: Intact. Sinuses and mastoid air cells: Adequate aeration. IMPRESSION: No intracranial post traumatic sequelae.
[2019-01-19] MEDS ORDERED: HYDROcodone/Acetaminophen 10/325 mg Tablet ONE ×2 (10:48→14:35)
--- NOTE | 2019-01-19 10:55 | CT ---
Exam: LUMBAR SPINE CT WITHOUT CONTRAST: HISTORY: Back pain. Status post fall. COMPARISON: None. FINDINGS: There appear to be bilateral pleural effusions, incompletely evaluated. Visualized solid organs and alimentary canal are unremarkable. Limited evaluation by technique. Bilat erally no obstructive uropathy. No retroperitoneal mass, lymphadenopathy or hematoma. Atherosclerosis of a nonaneurysmal aorta No paraspinal mass or hematoma. There are 5 lumbar type vertebra. Vertebral body height is maintained. There is no evidence of a vert ebral body fracture, spinous process fracture, or transverse process fracture. Visualized sacroiliac joints are patent and symmetric. Vacuum joint phenomenon is noted. There is a fracture involving the posterior right 11th rib. 3.2 mm of anterolisthesis of L4 upon L5 without associated spondylolysis. Limited evaluation of the contents of the central spinal canal and neural foramina due to technique. T10-T11, T11-T12, and T12-L1: Mild central canal stenosis secondary to degenerative changes at T11-T1 2. Grossly, neural foramina are patent. L1-L2: No high-grade central canal stenosis or high-grade foraminal narrowing. L2-L3: No high-grade central canal stenosis or high-grade foraminal narrowing. L3-L4: Generalized disc bulge, ligamentum flavum thickening, and facet hypertrophy result in mild celso tral canal stenosis. Right neural foramen is patent. Minimal left foraminal narrowing. L4-L5: Vacuum disc phenomenon. Broad-based disc bulge with a central disc protrusion. Ligamentum fla vum thickening and facet hypertrophy are present. Mild to moderate central canal stenosis. Mild right and lray-kg-vyxmbmel left foraminal narrowing. L5-S1: No significant central canal stenosis. Neural foramina are patent. IMPRESSION: 1. No evidence of fracture. 2. Bilateral pleural effusions. 3. Varying degrees of central canal stenosis and neural foraminal narrowing as detailed above. Transcribed Date/Time: 01/19/2019 11:10 AM
[2019-01-19 15:24] LABS: #Basophils 0.1 thou/uL (0.0-0.2); #Eosinphils 0.1 thou/uL (0.0-0.7); #Lymphocytes 1.8 thou/uL (1.20-3.40); #Monocytes 0.3 thou/uL (0.11-0.59); #Neutrophils 3.7 thou/uL (1.40-6.50); %Basophils 1.8 % (0.0-1.0); %Eosinophils 1.9 % (0.0-10.0); %Lymphocytes 30.2 % (21.0-51.0); %Monocytes 4.9 % (0.0-10.0); %Neutrophils 61.2 % (42.0-75.0); Mean Corpuscular HGB CONC 32.3 g/dL (32.0-36.0); Mean Corpuscular Hemoglobin 27.9 pg (27.0-31.0); Mean Corpuscular Volume 86.5 fL (78.0-98.0); Mean Platelet Volume 7.9 fL (7.4-10.4); Platelet Count 261 thou/uL (130-400); RBC Distribution Width 17.5 % (11.5-14.5); White Blood Cell (WBC) Count 6.1 thou/uL (4.8-10.8)
[2019-01-19 15:45] LABS: Albumin 2.7 g/dL (3.4-4.8); Anion Gap 9 mmol/L (10-20); Bilirubin, Total 0.4 mg/dL (0.2-1.2); Calcium 8.4 mg/dL (7.8-10.44); Carbon Dioxide 25 mmol/L (23-31); Chloride 105 mmol/L (98-107); Globulin 2.5 g/dL (2.4-3.5); Glucose 111 mg/dL (83-110); Potassium 3.7 mmol/L (3.5-5.1); Protein, Total 5.2 g/dL (5.8-8.1); Sodium 135 mmol/L (136-145)
[2019-01-19 16:03] LABS: ALT (SGPT) 14 U/L (8-55); AST (SGOT) 20 U/L (5-34); Alkaline Phosphatase 96 U/L (40-150); BUN (Urea Nitrogen) 10 mg/dL (8.4-25.7); Calc. Creatinine Clearance 0 mL/min (70-130); Estimated GFR-MDRD 83
[2019-01-19] MEDS ORDERED: Acetaminophen 325 MG TAB PO PRN (18:53)
[2019-01-19] MEDS ORDERED: Ondansetron PF 4 MG/2 ML Vial IVP PRN (18:53)
[2019-01-19 19:55] VITALS: BMI 21.9
--- NOTE | 2019-01-19 22:14 | HP ---
PRIMARY CARE PHYSICIAN: Lynda Hairston. CHIEF COMPLAINT: Generalized weakness. HISTORY OF PRESENT ILLNESS: Mr. Coronel is a 78-year-old man, who has a past medical history of recent erosive esophagitis/GI bleed; large hiatal hernia, status post repair in [place]; hypertension; hyperlipidemia; gastroesophageal reflux disease ; atrial fibrillation currently controlled with amiodarone and Eliquis and chronic anemia; who had presented to [facility] earlier today after he had noticed worsening generalized weakness. The patient was recently admitted into this hospital on 11/24/2018 for an acute GI bleed. During that hospitalization, he had undergone an EGD, which found an acute blood and esophagitis. He was treated with PPI at that time and due to a large hiatal hernia, the patient was later transferred to [facility] in [place] for further surgical intervention. The patient underwent surgery for his large hiatal hernia and also had a tracheostomy placed along with a PEG tube. The patient was later discharged to inpatient rehabilitation facility where he had spent the last month, he states that he was then discharged yesterday back home; however, when he had tried to take himself to the bathroom due to weakness, he was not able to, therefore he wanted further evaluation in the emergency department today. The patient denies any fever, chills, any headache, blurred vision, dizziness. He had denied any chest pain, palpitations, shortness of breath, abdominal pain, nausea, vomiting, or any change in his stool. His lab work showed a stable hemoglobin of 10.0, which seems to have improved from his previous visit. The patient did sustain a fall without any further injuries. A CT of head was performed and showed no intracranial posttraumatic sequelae and a CT lumbar spine was also performed, which showed no evidence of fracture noted. It was recommended the patient be transferred back to inpatient rehabilitation facility, however, due to their facility being full, they were unable to take the patient back. REVIEW OF SYSTEMS: All other systems reviewed and found to be negative unless mentioned in HPI. PAST MEDICAL HISTORY: Atrial fibrillation; hyperlipidemia; gastroesophageal reflux disease; large hiatal hernia, recently surgically repaired; esophagitis. SURGICAL HISTORY: Bilateral inguinal hernia repair, large hiatal hernia repair , and tracheostomy. SOCIAL HISTORY: The patient denies any smoking or alcohol or any further illicit drug use. He is full code at this time and his surrogate decision maker is his brother, Edwin Coronel. KNOWN ALLERGIES: Codeine and meperidine CURRENT HOME MEDICATIONS: 1. Folic acid 1 mg p.o. daily. 2. Protonix 40 mg p.o. twice daily. 3. Tramadol 50 mg p.o. daily p.r.n. pain. 4. Aspirin 81 mg daily. 5. Pravastatin, unknown dosage. PHYSICAL EXAMINATION: VITAL SIGNS: Blood pressure 133/85, pulse 71, respirations 20, temperature 97.9 degrees Fahrenheit, O2 saturation 97% on room air. GENERAL: The patient is awake, alert, and oriented x3. He is currently lying comfortably in bed, in no acute distress. HEENT: Atraumatic and normocephalic. Pupils are round and reactive to light. Extraocular muscles intact. Moist mucous membranes noted. NECK: Tracheostomy in place. CARDIOVASCULAR: Positive S1 and S2. Regular rate and rhythm. No murmur auscultated. RESPIRATORY: Clear to auscultation bilaterally. No wheezes, rales, or rhonchi. ABDOMEN: Soft and nontender. Bowel sounds present. MUSCULOSKELETAL: Strength 5+ bilaterally upper and lower extremities. Moves all extremities equal. Pedal and radial pulses 2+ bilaterally. No edema noted. NEUROLOGIC: Cranial nerves 2 through 12 grossly intact. No focal deficits noted. Speech intact and normal. Gait not assessed. SKIN: Warm, dry, and intact. Diffuse bruising noted on his upper and lower extremities. Nontender to palpation. PSYCHIATRIC: Good mood and affect. LABORATORY DATA: WBC 6.1, RBC 3.60, hemoglobin 10.0, platelet 261. Sodium 135, potassium 3.7, anion gap 9, BUN 10, creatinine 0.89, estimated GFR 83, glucose 111. Troponin less than 0.010. DIAGNOSTIC IMAGING: CT brain without contrast showed no intracranial post- traumatic changes. CT lumbar spine without contrast showed no evidence of fractures. ASSESSMENT AND PLAN: 1. Generalized weakness, multifocal. PT and OT will be ordered and a rehab screen will also be placed. 2. Hyperlipidemia. The patient will be placed on home statin once his dose is verified, and his lipid panel will be checked in the morning. 3. History of atrial fibrillation, continue home dose of amiodarone and eliquis. 4. History of esophagitis. Continue PPI at this time. 5. History of chronic anemia. This appears to be stable at this time. 6. Deep venous thrombosis and gastrointestinal prophylaxis. 7. Code status: Full code. 8. Surrogate decision maker: As above is his brother, Edwin Coronel. DISPOSITION: Pending further workup and clinical findings. Job ID: [id number] [id number]
[2019-01-20 06:05] LABS: #Basophils 0.1 thou/uL (0.0-0.2); #Eosinphils 0.3 thou/uL (0.0-0.7); #Lymphocytes 1.7 thou/uL (1.20-3.40); #Monocytes 0.4 thou/uL (0.11-0.59); #Neutrophils 3.2 thou/uL (1.40-6.50); %Basophils 1.8 % (0.0-1.0); %Eosinophils 4.9 % (0.0-10.0); %Lymphocytes 30.5 % (21.0-51.0); %Monocytes 7.3 % (0.0-10.0); %Neutrophils 55.6 % (42.0-75.0); Hemoglobin 9.6 g/dL (14.0-18.0); Mean Corpuscular HGB CONC 32.3 g/dL (32.0-36.0); Mean Corpuscular Hemoglobin 28.1 pg (27.0-31.0); Mean Corpuscular Volume 87.2 fL (78.0-98.0); Mean Platelet Volume 8.2 fL (7.4-10.4); Platelet Count 239 thou/uL (130-400); RBC Distribution Width 17.2 % (11.5-14.5); White Blood Cell (WBC) Count 5.7 thou/uL (4.8-10.8)
[2019-01-20 06:24] LABS: Anion Gap 9 mmol/L (10-20); BUN (Urea Nitrogen) 8 mg/dL (8.4-25.7); Calc. Creatinine Clearance 79 mL/min (70-130); Calcium 8.3 mg/dL (7.8-10.44); Carbon Dioxide 24 mmol/L (23-31); Chloride 106 mmol/L (98-107); Estimated GFR-MDRD Greater than 90; Glucose 84 mg/dL (83-110); Potassium 3.6 mmol/L (3.5-5.1); Sodium 135 mmol/L (136-145)
[2019-01-20] MEDS: Midodrine HCl 5 MG TAB PO SCH ×2 (08:54→12:22)
[2019-01-20] MEDS ORDERED: Fludrocortisone Acetate 0.1 MG TAB PO SCH (09:00)
[2019-01-20] MEDS ORDERED: Prevnar 13-Val Conj/PF 0.5 ML SYRINGE IM ONE (09:00)
[2019-01-20] MEDS ORDERED: Enoxaparin Sodium 40 MG/0.4 ML SYRINGE SC SCH (09:00)
[2019-01-20] MEDS ORDERED: Apixaban 5 MG TAB PO SCH (09:00)
[2019-01-20] MEDS ORDERED: Pravastatin Sodium 20 MG TAB PO SCH (09:00)
[2019-01-20] MEDS ORDERED: Amiodarone 200 MG TAB PO SCH (09:00)
[2019-01-20] MEDS ORDERED: Aspirin 81 mg Enteric Coated Tablet PO SCH (09:00)
[2019-01-20 16:35] VITALS: BP 140/88; TEMP 98.2
--- NOTE | 2019-01-21 11:13 | DIS ---
DATE OF ADMISSION: 01/19/2019 DATE OF DISCHARGE: 01/20/2019 PRIMARY CARE PHYSICIAN: Lynda Hairston. CHIEF COMPLAINT: Generalized weakness. ASSESSMENT/DIAGNOSES: 1. Generalized weakness, multifocal. 2. Debility. 3. Failure to thrive. 4. Atrial fibrillation. 5. Esophagitis. 6. Hiatal hernia with recent repair. 7. Dysphagia. There is chronic PEG tube. 8. Acute on chronic respiratory failure, status post tracheostomy. 9. History of esophagitis. 10. Anemia. 11. Hyperlipidemia. HOSPITAL COURSE: Mr. Coronel is a pleasant 78-year-old gentleman who was recently hospitalized with a prolonged course where he was transferred to [facility] in [place] for surgical intervention of a hiatal hernia repair. The patient with complications requiring tracheostomy and PEG tube placement. The patient has spent the last roughly 1 month in rehabilitation facility and has had some good improvement. The patient is able to now eat and his feeding tube is no longer being used for enteral nutrition or medication administration. 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 Again, the patient spent roughly the last one month in rehabilitation facility. He was discharged home on 01/18/2019 and returned to [facility] on 01/19/2019. The patient stated that he did have a fall and so imaging was performed to rule out acute fracture, please see full radiographic imaging reports for details. The patient had a CT scan of the brain, please see full report for details. No acute intracranial process. The patient had a CT scan of the lumbar spine, please see full report for details, no acute fracture was identified. The patient had a thorough workup including blood work. The patient's CBC was normal where WBC count 5.7, hemoglobin chronically low at 9.6, however, this is elevated from his baseline when he was here in the past. CBC is otherwise unremarkable. The patient had complete metabolic panel that was normal with electrolytes and renal function. The patient does have chronically low blood pressure which is normal for him without symptoms. The patient continued to have mildly low blood pressures throughout his hospitalization without symptoms. The patient was monitored in [facility] for greater than 24 hours and remained stable without further episodes of fall or problems. The patient was evaluated by Physical Therapy who recommended patient is ready for discharge to rehabilitation facility with the patient recently just being discharged from rehabilitation facility. He was evaluated and accepted back to original rehabilitation facility. Review of systems was conducted and otherwise negative besides from hospital course. DISCHARGE MEDICATIONS: 1. Folic acid 1 mg p.o. daily. 2. Protonix 40 mg 1 tablet p.o. b.i.d. 3. Tramadol 50 mg 1 tab p.o. q.6 hours p.r.n. pain. 4. Aspirin 81 mg 1 tab p.o. daily. 5. Pravastatin 20 mg 1 tab p.o. at bedtime. 6. Quetiapine 25 mg 1 tab p.o. at bedtime. 7. Famotidine 20 mg 1 tab p.o. p.r.n. indigestion. 8. Melatonin 5 mg 1 tab p.o. at bedtime p.r.n. insomnia. 9. Zofran 4 mg 1 tab p.o. p.r.n. nausea/vomiting. 10. Midodrine 1 tab p.o. b.i.d., on hold for systolic blood pressure greater than 120. 11. Fludrocortisone 0.1 mg 1 tab p.o. daily, hold for systolic blood pressure greater than 120. Job ID: [id number]
== END 2019-01-20 16:35 ==
LOC: ERS 10:11 → T4-B 18:28
PROVIDERS: ADMIT Internal Medicine Nephrology; ATTEND Internal Medicine Nephrology
DX: R53.1 Weakness (principal); R53.81 Other malaise; R62.7 Adult failure to thrive; I48.91 Unspecified atrial fibrillation; R13.10 Dysphagia, unspecified; J96.20 Acute and chronic respiratory failure, unspecified whether with hypoxia or hypercapnia; D64.9 Anemia, unspecified; E78.5 Hyperlipidemia, unspecified; I10 Essential (primary) hypertension; K21.9 Gastro-esophageal reflux disease without esophagitis; M48.061 Spinal stenosis, lumbar region without neurogenic claudication; M48.04 Spinal stenosis, thoracic region; Z93.1 Gastrostomy status; Z93.0 Tracheostomy status; Z87.19 Personal history of other diseases of the digestive system; Z68.21 Body mass index [BMI] 21.0-21.9, adult; Z88.5 Allergy status to narcotic agent; Z79.01 Long term (current) use of anticoagulants; Z79.82 Long term (current) use of aspirin; Z79.51 Long term (current) use of inhaled steroids
CPT/HCPCS: 70450; 72131; 80048; 80053; 84484; 85025 ×2; 90670; 93005; 97116; 97139; 97530; 99285; G0009; G0378 ×3; 36415; 90471

== ENCOUNTER 2019-09-25 14:10 | Inpatient (IN) | payer MEDICARE, MEDICAID, OTHER ==
[2019-09-25 14:53] LABS: #Eosinphils 0.1 thou/uL (0.0-0.7); #Lymphocytes 1.5 thou/uL (1.20-3.40); #Monocytes 0.6 thou/uL (0.11-0.59); #Neutrophils 5.2 thou/uL (1.40-6.50); %Basophils 0.1 % (0.0-1.0); %Eosinophils 1.6 % (0.0-10.0); %Lymphocytes 20.2 % (21.0-51.0); %Monocytes 8.2 % (0.0-10.0); %Neutrophils 69.9 % (42.0-75.0); Hemoglobin 5.4 g/dL (14.0-18.0); Mean Corpuscular HGB CONC 30.2 g/dL (32.0-36.0); Mean Corpuscular Hemoglobin 21.6 pg (27.0-31.0); Mean Corpuscular Volume 71.7 fL (78.0-98.0); Mean Platelet Volume 8.2 fL (7.4-10.4); Platelet Count 394 thou/uL (130-400); RBC Distribution Width 17.8 % (11.5-14.5); Red Blood Cell (RBC) Count 2.47 mill/uL (4.70-6.10); White Blood Cell (WBC) Count 7.4 thou/uL (4.8-10.8)
[2019-09-25 15:10] LABS: ALT (SGPT) Less than 7 U/L (8-55); AST (SGOT) 9 U/L (5-34); Albumin 2.5 g/dL (3.4-4.8); Alkaline Phosphatase 67 U/L (40-110); Anion Gap 13 mmol/L (10-20); Anisocytosis SLIGHT = 6-15 cells (100X) (0-5/hpf); BUN (Urea Nitrogen) 14 mg/dL (8.4-25.7); Bilirubin, Total 0.2 mg/dL (0.2-1.2); Calc. Creatinine Clearance 0 mL/min (70-130); Calcium 7.8 mg/dL (7.8-10.44); Carbon Dioxide 20 mmol/L (23-31); Chloride 106 mmol/L (98-107); Estimated GFR-MDRD 80; Globulin 2.5 g/dL (2.4-3.5); Glucose 105 mg/dL (83-110); Hypochromia MODERATE=16-30 cells (100X) (0-5/hpf); MDiff Complete? YES; Microcytosis SLIGHT = 6-15 cells (100X) (0-5/hpf); Platelet Morphology Comment Appears Adequate; Polychromasia MODERATE = 3-4 cells (100X) (0-2/hpf); Potassium 4.6 mmol/L (3.5-5.1); Schistocytes SLIGHT = 2-5 cells (100X) (0-1/hpf); Sodium 134 mmol/L (136-145); Target Cells SLIGHT = 2-5 cells (100X) (0-1/hpf); Tear Drops SLIGHT = 2-5 cells (100X) (0-1/hpf)
[2019-09-25 15:38] LABS: INR-International Normal Ratio 1.1; Prothrombin Time 14.3 SEC (12.0-14.7)
[2019-09-25 15:39] LABS: PTT 29.9 SEC (22.9-36.1)
--- NOTE | 2019-09-25 15:57 | CT ---
CT THORACIC SPINE: Date: 09-25-2019 History: Pain. Technique: Axial CT imaging at 3.75 mm intervals through the thoracic spine without contrast. Coronal and sagittal reformatted imaging obtained. FINDINGS: Evaluation for central canal and/or neural foraminal stenosis is limited on routine CT. Thoracic vertebral body height and alignment appears grossly unremarkable. There is no anterolisthesi s or retrolisthesis noted within the thoracic spine and there is no evidence for acute fracture or di slocation. There is diffuse distention of the esophagus, similar when compared to a CT examination of the chest, abdomen, and pelvis performed 11-24-18. There is a moderate sized hiatal hernia with wall thickening and internal debris. There is stranding of the fat along the medial aspect of this hiatal hernia, inc ompletely imaged on this exam. There are mildly enlarged lymph nodes within the tracheal esophageal g roove at the axial level of the thyroid gland measuring 1.1 cm short axis dimension on the right, sta ble, and approximately 8 mm short axis dimension on the left, stable as well. Soft tissue nodularity is seen within the fat medial to the hiatal hernia with nodules measuring up t o 1.4 cm, which may represent enlarged lymph nodes. There is mild lymph node prominence in the region of the portahepatis as well, incompletely assessed on this examination, with nodes measuring up to a pproximately 1.8 cm in short axis dimension. Small volume incompletely assessed left pleural effusion is noted medially. No worrisome lytic or camacho stic bone lesions. No acute fracture or dislocation. There is an old fracture involving the posterome dial right 11th rib. Debris fills the mid/distal esophagus, including the residual hiatal hernia which could reflect under lying stricture. IMPRESSION: 1. No acute fracture or evidence of dislocation seen within the thoracic spine. 2. Numerous incidental findings, incompletely assessed on this examination. Findings include hiatal h ernia with wall thickening and adjacent nonspecific lymphadenopathy. Correlation with prior surgical history required. Adenopathy may be related to gastic or esophageal malignancy or could be reactive i n nature on the basis of inflammatory/infectious process. 3. GI and/or surgical consultation may be beneficial to better evaluate the esophagus and stomach. Dr Mitchell Robb made aware at the time of interpretation. POS: ALESSIO
--- NOTE | 2019-09-25 16:02 | CT ---
LUMBAR SPINE CT WITHOUT CONTRAST: Date: 09-25-2019 Comparison: 01-19-19 History: Pain Technique: Axial CT imaging at 2.5 mm intervals through the lumbar spine without contrast. Coronal an d sagittal reformatted imaging obtained. FINDINGS: Evaluation for central canal and/or neural foraminal stenosis is limited on routine CT. Incompletely assessed mildly enlarged portahepatis lymph nodes are noted. There is mild anterolisthesis of L4 on L5 measuring approximately 3 mm. No acute fracture or dislocat ion. No worrisome lytic or blastic bone lesion. T12-L1: No osseous cause of significant central canal or neural foraminal stenosis. Mild bilateral fa cet hypertrophy. L1-2: Mild bilateral facet hypertrophy. Anterior osteophyte formation and mild disc bulge but no osse ous cause of significant central canal or neural foraminal stenosis . L2-3: Mild bilateral facet hypertrophy. No osseous cause of significant central canal or neural belem inal stenosis . L3-4: Bilateral facet hypertrophy. No osseous cause of significant central canal or neural foraminal stenosis. L4-5: Mild bilateral facet hypertrophy. Probable mild disc bulge with mild bilateral neural foraminal stenosis. No significant central canal stenosis. L5-S1: No osseous cause of significant central canal or neural foraminal stenosis. There is atherosclerotic calcification of the abdominal aorta and its branches. IMPRESSION: No acute fracture or evidence of dislocation. No worrisome lytic or blastic bone lesion. POS: [facility]
--- NOTE | 2019-09-25 16:10 | RAD ---
AP CHEST: Indication: Right flank pain. Weakness. Comparison: 2019 FINDINGS: There is hazy ground glass type opacity in both lower lungs which could represent infiltrate. There i s evidence of small bilateral effusions. Vascular markings upper normal. Heart size is within normal range. IMPRESSION: Evidence of hazy bibasilar infiltrates and small effusions. POS: [facility]
[2019-09-25] MEDS ORDERED: Ondansetron PF 4 MG/2 ML Vial IVP PRN (17:06)
[2019-09-25] MEDS ORDERED: Ondansetron ODT 4 MG TAB SL PRN (17:06)
[2019-09-25 17:19] VITALS: BMI 20.5
[2019-09-25] MEDS ORDERED: Pantoprazole 40 MG VIAL IVP SCH (17:28)
[2019-09-25] MEDS ORDERED: Pantoprazole 80 MG, Admixture Fee 1 EACH in Sodium Chloride 0.9% 100 ML IVPB SCH (17:45)
[2019-09-25] MEDS ORDERED: Melatonin 3 MG TAB PO PRN (18:13)
[2019-09-25] MEDS: Acetaminophen 650 MG/20.3 ML UDCUP PO PRN (18:31)
[2019-09-25 19:59] LABS: Hemoglobin 5.9 g/dL (14.0-18.0)
--- NOTE | 2019-09-25 20:00 | HP ---
HISTORY OF PRESENT ILLNESS: Mr. Coronel is a 79-year-old male with medical history of erosive esophagitis; GI bleed; large hiatal hernia, status post repair in [place]; GERD; paroxysmal atrial fibrillation (he is to be on amiodarone and Eliquis, but has not been taking the medications for months, will require clarification); who presented for presyncope. The patient has had generalized weakness for the past several months, however, in the past 5 days, noticed an acute change in his weakness and ability to walk for distance, resulting in shortness of breath and sensation of about to faint. Of note, the patient was admitted in November 2018 because of an acute GI bleed. He was diagnosed with esophagitis and large hiatal hernia and underwent surgical repair of his hernia. His hospital course was complicated and required placement of tracheostomy and PEG tube; however, he was discharged to rehab and recuperated well, so the trach and PEG were removed. Per the patient, the rehab physician never renewed his medications including the amiodarone and Eliquis, as well as his other medications. On encounter, the patient is lying comfortably in bed and has no complaints. Denies weight loss, syncope, hematemesis, headache, change in vision, shortness of breath, chest pain, palpitations, pleuritic pain, abdominal pain, diarrhea, melena, hematochezia, hematuria, focal weakness, recent falls, skin lesions. ED COURSE: In the ED, the patient was found to have a hemoglobin of 5.4. He was started on transfusion of 2 PRBCs and was admitted to the telemetry floor for further management. REVIEW OF SYSTEMS: Full review of systems was carried out and was negative unless mentioned in the HPI. PAST MEDICAL HISTORY: Atrial fibrillation (he used to be on Eliquis and amiodarone, discontinued, required clarification as to the reason why, even though the most likely reason is his GI bleed, had surgical corrected of hernia), large hiatal hernia status post surgical repair, esophagitis, multiple falls. PAST SURGICAL HISTORY: Bilateral inguinal hernia repair, large hiatal hernia repair, and tracheostomy as well as PEG. The PEG and trach were removed after the patient improved. SOCIAL HISTORY: The patient denies smoking or alcohol, illicit drug use. He is full code and his surrogate decision maker is his brother, Edwin Coronel. ALLERGIES: CODEINE AND MEPERIDINE. MEDICATIONS: The patient is taking Protonix 40 mg daily, aspirin 81 mg daily, and pravastatin. However, per discharge summary from January of last year, he was taking additional medications. We will clarify most recent medication regimen. PHYSICAL EXAMINATION: VITAL SIGNS: In the ED, blood pressure 104/60, pulse 95, respiratory rate 20, temperature 99.2 oral, O2 saturation 98% on room air. GENERAL: No apparent distress, emaciated. HEENT: Atraumatic and normocephalic. Pupils are round and reactive to light. Extraocular muscles intact. Moist mucous membranes. Conjunctival pallor was noted. CARDIAC: Regular rate and rhythm. No gallops, murmurs, or rubs. RESPIRATORY: Clear to auscultation bilaterally. No wheezes, rales, or rhonchi. ABDOMEN: Soft and nontender. Normal bowel sounds. MUSCULOSKELETAL: Strength 5/5 bilaterally throughout upper and lower extremities. Pedal pulses 2+ bilaterally. NEUROLOGIC: Cranial nerves 2 through 12 are intact. No focal deficits. Speech intact, even though slow. SKIN: No lesions appreciated. PSYCHIATRIC: Proper mood and affect. Alert and oriented x3. LABORATORY DATA AND IMAGING STUDIES: Laboratory and imaging were reviewed. Chest x-ray did not show an acute cardiopulmonary process. CT of thoracic spine showed hiatal hernia with wall thickening and adjacent nonspecific lymphadenopathy. EKG showed normal sinus rhythm with left axis deviation, left posterior fascicular block, and old anteroseptal infarct. No signs of new ischemia. ASSESSMENT AND PLAN: Mr. Coronel is a 79-year-old male with a medical history significant for paroxysmal atrial fibrillation (to be on Eliquis and amiodarone , but not adherent for the past few months), large hiatal hernia status post surgical repair, esophagitis, who presented with [id number] generalized weakness and acute presyncope. 1. Symptomatic anemia. The patient presented with a hemoglobin of 5.4 and microcytosis. The patient has significant history of upper GI bleed. He is to be on Eliquis, but discontinued. We will seek medical records in order to clarify if was discontinued by physician or self discontinued. Transfused with 2 times PRBC. FOBT pending. Plan;. a. Pantoprazole IVPB 80 mg once, then IV push 40 mg b.i.d. b. N.p.o. pending evaluation by Gastroenterology, which was consulted. c. We will repeat H and H after transfusions are over. d. Considering the patient has symptomatic anemia and active bleeding, transfuse if hemoglobin is lower than 8. 2. Paroxysmal atrial fibrillation. (used to be on Eliquis and amiodarone.) Per discharge summary from January of last year, the patient was discharged on these medications. However, the patient endorsed that rehabilitation, which occurred prior to the discharge, discontinued his Eliquis and amiodarone. Start the patient on SCDs for DVT prophylaxis. hold Eliquis and aspirin for suspected GI bleed. obtain records regarding the patient's medical history and medication regimen. 3. Lower back pain. The patient complains about chronic low back pain, that radiates down his buttocks and posterior thighs. Pending CT imaging results. Plan;. a. Tylenol 650 mg q.6 hours p.r.n. pain. b. If the patient continues to complain of pain, can escalate to Tylenol No. 3. DISPOSITION/PROPHYLAXIS: 1. The patient is full code. 2. Surrogate decision maker is the patient's brother. 3. Gastrointestinal prophylaxis, the patient is on therapeutic pantoprazole for suspected GI bleed. 4. Deep venous thrombosis prophylaxis, the patient is on SCDs considering GI bleed. ANGELIQUE Jack midnights Job ID: [id number] MTDD
[2019-09-25] MEDS ORDERED: Simvastatin 5 MG TAB PO SCH (21:00)
[2019-09-25] MEDS ORDERED: Melatonin 3 MG TAB PO SCH (21:00)
[2019-09-25] MEDS ORDERED: Midodrine HCl 5 MG TAB PO SCH (21:00)
[2019-09-25] MEDS: Sodium Chloride 0.9% 1,000 ML IV SCH (23:17)
[2019-09-26 00:31] LABS: Hemoglobin 7.1 g/dL (14.0-18.0)
[2019-09-26 06:05] LABS: #Basophils 0.1 thou/uL (0.0-0.2); #Eosinphils 0.2 thou/uL (0.0-0.7); #Lymphocytes 1.4 thou/uL (1.20-3.40); #Monocytes 0.9 thou/uL (0.11-0.59); #Neutrophils 5.4 thou/uL (1.40-6.50); %Basophils 0.9 % (0.0-1.0); %Eosinophils 2.6 % (0.0-10.0); %Lymphocytes 17.3 % (21.0-51.0); %Monocytes 11.6 % (0.0-10.0); %Neutrophils 67.5 % (42.0-75.0); Hemoglobin 8.2 g/dL (14.0-18.0); Mean Corpuscular HGB CONC 31.4 g/dL (32.0-36.0); Mean Corpuscular Hemoglobin 24.5 pg (27.0-31.0); Mean Corpuscular Volume 78.1 fL (78.0-98.0); Mean Platelet Volume 7.8 fL (7.4-10.4); Platelet Count 347 thou/uL (130-400); RBC Distribution Width 19.2 % (11.5-14.5); Red Blood Cell (RBC) Count 3.32 mill/uL (4.70-6.10); White Blood Cell (WBC) Count 7.9 thou/uL (4.8-10.8)
[2019-09-26 06:19] LABS: Anion Gap 10 mmol/L (10-20); BUN (Urea Nitrogen) 9 mg/dL (8.4-25.7); Calc. Creatinine Clearance 87 mL/min (70-130); Calcium 7.8 mg/dL (7.8-10.44); Carbon Dioxide 21 mmol/L (23-31); Chloride 108 mmol/L (98-107); Estimated GFR-MDRD Greater than 90; Glucose 92 mg/dL (83-110); Magnesium 1.9 mg/dL (1.6-2.6); Potassium 4.1 mmol/L (3.5-5.1); Sodium 135 mmol/L (136-145)
[2019-09-26] MEDS: Pantoprazole 40 MG VIAL IVP SCH ×2 (08:24→19:43)
[2019-09-26] MEDS ORDERED: Amiodarone 200 MG TAB PO SCH (09:00)
[2019-09-26] MEDS ORDERED: Fludrocortisone Acetate 0.1 MG TAB PO SCH (09:00)
[2019-09-26] MEDS ORDERED: Pravastatin Sodium 20 MG TAB PO SCH (09:00)
--- NOTE | 2019-09-26 14:31 | CON ---
DATE OF CONSULTATION: 09/26/2019 REASON FOR CONSULTATION: Anemia, personal history of large hiatal hernia with bleeding in 11/2018. CONSULTING PROVIDER: Rupesh Zayas MD HISTORY OF PRESENT ILLNESS: The patient is a 79-year-old male with past medical history of atrial fibrillation (previously on anticoagulation, but not currently ), hyperlipidemia, GERD, peptic ulcer disease (diagnosed in 2004), and a large hiatal hernia diagnosed in 11/2018 and now status post surgical repair, presenting with complaints of weakness and dizziness. The patient underwent upper endoscopy in 11/2018 with complaints of anemia, but no overt GI bleeding. 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 He subsequently underwent a hiatal hernia repair and "felt much better after that. " Since that time, he did have a complicated hospital course including placement of a tracheostomy and percutaneous gastrostomy tube, but was ultimately released to rehab, for which he did well and ultimately had both the tracheostomy and PEG tube removed. He states he was in his usual state of health until approximately 1 month ago when he began having increased lower back pain, for which he started taking increasing amounts of [id number] medications including Tylenol and a "pain medication from the [employer]." However, over the last 2 weeks, he has been progressively having increased generalized weakness of both upper and lower extremities, increased dizziness, and experienced a presyncopal type event approximately 2 days prior to admission. He also states that he was having increased shortness of breath at rest and at exertion in addition to the above symptoms. With this increasing dizziness and the presyncopal type event, consistent with his previous anemia, it prompted him to seek healthcare assistance at [facility] ER. While in the ER, he did have a repeat CBC, which showed a significant anemia and was ultimately admitted to the hospital for further evaluation. Currently, he states that he continues to have symptoms of dysphagia, but they are improved when compared to previous and unchanged over the last 3 to 4 months. This is characterized as a sensation that food is having a difficult time moving through his esophagus at the level of the mid chest/sternal notch. This occurs primarily with solid food ingestion only with no difficulty with liquid ingestion. Otherwise, he denies any nausea, vomiting, fevers, chills, hematemesis, melena, hematochezia, odynophagia, diarrhea, constipation, or weight loss. REVIEW OF SYSTEMS: A 10-category review of systems was obtained with all responses negative except for the pertinent positives as listed in HPI. PAST MEDICAL HISTORY: As per HPI. PAST SURGICAL HISTORY: 1. Bilateral inguinal hernia repair. 2. Tracheostomy placement. 3. Gastrostomy tube placement. 4. Hiatal hernia repair. FAMILY HISTORY: Denies any GI malignancies. SOCIAL HISTORY: Denies any tobacco, alcohol, or illicit drug use. OUTPATIENT MEDICATIONS: Reviewed. ALLERGIES: CODEINE AND MEPERIDINE. PHYSICAL EXAMINATION: VITAL SIGNS: Temperature 97.4, pulse 61, blood pressure 140/76, respiratory rate 18, and saturating 98% on room air. GENERAL: The patient was lying in bed, in no acute distress. Alert and oriented x4. HEENT: Normocephalic and atraumatic. Neck is supple. No JVD or scleral icterus noted. CARDIOVASCULAR: Regular rate and rhythm with no discernable murmurs, gallops, or rubs. RESPIRATORY: Clear to auscultation bilaterally with no discernable wheezes or rales. ABDOMEN: Normoactive bowel sounds. Soft, nontender, and nondistended. EXTREMITIES: Mild cachectic in appearance with no cyanosis, clubbing, or edema. LABORATORY DATA: CBC with a white blood cell count of 7.9, hemoglobin 8.2, hematocrit 26, and platelets 347. INR 1.1. Chemistry with a sodium of 135, potassium 4.1, chloride 108, CO2 of 21, BUN 9, creatinine 0.71, glucose 92, AST 9, ALT less than 7, alkaline phosphatase 67, total bilirubin 0.2, and albumin 2.5. IMAGING DATA: EGD was performed on 11/26/2018, which showed LA grade D reflux mediated erosive esophagitis in addition to a large hiatal hernia and a large amount of darker colored fluid within the stomach including blood clot that limited visualization of the gastric mucosa. Due to slightly altered anatomy, intubation of the duodenum could not be achieved at that time. Chest x-ray obtained on 2019 showed evidence of hazy bibasilar infiltrates and small effusions, but the vascular markings were normal. ASSESSMENT AND PLAN: The patient is a 79-year-old male with past medical history of atrial fibrillation (no longer on anticoagulation), hyperlipidemia, gastroesophageal reflux disease, peptic ulcer disease, and large hiatal hernia, resulting in significant anemia in 2019, status post repair, now presenting with recurrent significant anemia, concerning for gastrointestinal bleeding source. Symptomatic anemia: The patient is presenting with a history of both peptic ulcer disease and a large hiatal hernia, both of which have contributed to possible bleeding in the past with the most recent being in 11/2018, where he had a large amount of blood and blood material in the stomach on upper endoscopy. He is now status post surgical repair of a large hiatal hernia, which should minimize any further episodes of Migue's ulcerations in further bleeding. However, the patient is now presenting with again a significant anemia, which is a change when compared to his previous baseline in 01/2019, with a hemoglobin of 10.2, (presenting now with a hemoglobin of 5.4). He does not currently have any symptoms of gastrointestinal bleeding including hematemesis, melena, or hematochezia, but he did not have these overt bleeding symptoms the last time the upper endoscopy was performed. At this time, the differential could include esophagitis, peptic ulcer disease, loosening of his hiatal hernia repair with Migue ulcer/ulceration, arteriovenous malformation, Dieulafoy lesion, colonic origin (less likely), and/or gastrointestinal neoplasm. RECOMMENDATIONS: 1. Would continue to trend his hemoglobin and hematocrit and transfuse as necessary to maintain the hemoglobin and hematocrit of 7/21. 2. Continue to monitor clinically for signs of active GI bleeding. 3. Would continue PPI 40 mg IV b.i.d. in light of possible upper GI bleed. 4. Would continue the patient on n.p.o. status with plans for upper endoscopy later today. 5. Would proceed with EGD later today for intraluminal evaluation and possible small bowel biopsies. 6. If the upper endoscopy is negative for signs of overt GI bleeding, I would then consider colonoscopy for further evaluation. We will continue to follow. Please call with any questions. ADDENDUM: In light of the bibasilar infiltrates and pleural effusions seen on CXR, the concern for infection with COVID-19 is higher (although the patient does not have concurrent fever, sore throat/cough, or abdominal complaints). With that said, I would hold on any endoscopic intervention for now until the patient's COVID-19 status is known. Until that time, I would continue to trend his H/H and if downtrending, he will need to have EGD urgently in negative-pressure OR suite with endotracheal tube intubation. Job ID: [id number] MTDD
[2019-09-26] MEDS: Acetaminophen 650 MG/20.3 ML UDCUP PO PRN (18:42)
--- NOTE | 2019-09-26 19:43 | PDOC.HOSPP ---
- Subjective Encounter Date: 09/26/19 Encounter Time: 09:00 Subjective: overnight, transfused total of 3 x PRBC and responded well. This morning feeling stronger but dizzy when sitting up. Had normal small bowel movement. no other complaints. - Objective Vital Signs & Weight: Vital Signs (12 hours) Temp Pulse Resp BP Pulse Ox 09/26/19 18:44 96 F L 77 158 H 125/68 09/26/19 11:54 97.4 F L 61 18 140/76 98 09/26/19 08:00 98.0 F 68 18 144/77 H 98 Weight Weight 158 lb 3.2 oz I&O: 09/25/19 09/26/19 09/27/19 06:59 06:59 06:59 Intake Total 1540 590 Output Total 1150 250 Balance 390 340 Result Diagrams: 09/26/19 05:51 09/26/19 05:51 Hospitalist ROS - Review of Systems Constitutional: denies: fever, chills, sweats, weakness, malaise, other Respiratory: denies: cough, dry, shortness of breath, hemoptysis, SOB with excertion, pleuritic pain, sputum, wheezing, other Cardiovascular: denies: chest pain, palpitations, orthopnea, paroxysmal noc. dyspnea, edema, light headedness, other Gastrointestinal: denies: nausea, vomiting, abdominal pain, diarrhea, constipation, melena, hematochezia, other - Medication Medications: Active Medications Generic Name Dose Route Start Last Admin Trade Name Freq PRN Reason Stop Dose Admin Acetaminophen 650 mg 09/25/19 18:19 09/26/19 18:42 Tylenol Elixir PO 650 mg Q4H PRN Administration Fever/Mild Pain (1-3) Sodium Chloride 1,000 mls @ 70 mls/hr 09/25/19 19:30 09/25/19 23:17 Normal Saline 0.9% IV 1,000 mls .[id number] STEFANI Administration Pantoprazole Sodium 40 mg 09/26/19 09:00 09/26/19 08:24 Protonix IVP 40 mg Q12HR STEFANI Administration - Exam General Appearance: NAD, awake alert Heart: RRR, no murmur, no gallops, no rubs Respiratory: CTAB, no wheezes, no rales, no ronchi Gastrointestinal: soft, non-tender, non-distended, normal bowel sounds Extremities: no edema Psychiatric: normal affect, normal behavior, A&O x 3 Hosp A/P - Plan chronic symptmatic microcytic anemia -s/p 3 x PRBC; HgB increased as expected -pending evaluation by gastroenterology and possible scope; has been NPO overnight otherwise no change in managment
[2019-09-26] MEDS: Sodium Chloride 0.9% 1,000 ML IV SCH (19:50)
[2019-09-27] MEDS: Sodium Chloride 0.9% 1,000 ML IV SCH ×2 (08:19→21:41)
[2019-09-27] MEDS: Pantoprazole 40 MG VIAL IVP SCH ×2 (08:20→21:40)
--- NOTE | 2019-09-27 15:43 | PRG ---
DATE OF SERVICE: 09/27/2019 HISTORY: Mr. Coronel is in respiratory isolation for awaiting results of COVID test. Apparently, he had a chest x-ray that the anesthesiologist was not comfortable with, with sedating him for endoscopy for his severe anemia. He has had no bleeding. He has been started on a diet after the endoscopy was canceled yesterday. It is projected that his COVID test will come back in a day or two. He denies any cough, shortness of breath, dyspnea. He was transfused, and his hemoglobin has been stable. MEDICATIONS: 1. Tylenol. 2. Protonix 40 IV q.12 h. 3. Melatonin. 4. Normal saline at 70 an hour. PHYSICAL EXAMINATION: VITAL SIGNS: Temperature is 98, pulse 82, blood pressure 135/81. ABDOMEN: Soft, nontender. There is no rebound. There is no guarding. LABORATORY DATA: Hemoglobin is 8 today, was 8.2 yesterday. White count 7.9. INR 1.1. On admission, his BUN and creatinine were 14 and 0.9. Albumin 2.5, protein 5. B12 in November 2018 was 340. Iron at that time was 18. ASSESSMENT: 1. Recurrent severe anemia with no evidence of acute gastrointestinal bleed. 2. Some mild dysphagia. 3. Esophagogastroduodenoscopy yesterday was canceled by Radiology secondary to concerning chest x-ray. He has no symptoms of viral or respiratory illness at this time, but we will await coronavirus disease testing. PLAN: Once COVID testing comes back negative, if remains without respiratory symptoms, he will need an upper endoscopy that should be done this admission in light of the fact he presented with a hemoglobin of 5.4 and an MCV of 71. We will consider setting up for colonoscopy at the same time depending on his previous evaluation. We will talk with Dr. Lynn as he knows this patient well. Job ID: [id number]
[2019-09-27] MEDS: Acetaminophen 650 MG/20.3 ML UDCUP PO PRN (18:16)
[2019-09-27] MEDS: Simvastatin 5 MG TAB PO SCH (21:40)
--- NOTE | 2019-09-27 22:24 | PDOC.HOSPP ---
- Subjective Encounter Date: 09/27/19 Encounter Time: 09:00 Subjective: no overnight events. Feeling better and more energized. No fever, chills, night sweats, cough, pleuritic pain, abdominal pain, hematuria, hematochezia, melena - Objective Vital Signs & Weight: Vital Signs (12 hours) Temp Pulse Resp BP Pulse Ox 09/27/19 21:38 97.6 F 66 18 127/80 97 09/27/19 16:42 98.4 F 71 16 155/89 H 96 09/27/19 12:31 98.3 F 82 16 135/81 95 Weight Weight 157 lb I&O: 09/26/19 09/27/19 09/28/19 06:59 06:59 06:59 Intake Total 1577 090 6960 Output Total 7912 887 7599 Balance 390 -45 380 Result Diagrams: 09/27/19 04:07 09/26/19 05:51 Hospitalist ROS - Review of Systems Constitutional: denies: fever, chills, sweats, weakness, malaise, other Respiratory: denies: cough, dry, shortness of breath, hemoptysis, SOB with excertion, pleuritic pain, sputum, wheezing, other Cardiovascular: denies: chest pain, palpitations, orthopnea, paroxysmal noc. dyspnea, edema, light headedness, other Gastrointestinal: denies: nausea, vomiting, abdominal pain, diarrhea, constipation, melena, hematochezia, other Genitourinary: denies: dysuria, frequency, incontinence, hematuria, retention, other - Medication Medications: Active Medications Generic Name Dose Route Start Last Admin Trade Name Freq PRN Reason Stop Dose Admin Acetaminophen 650 mg 09/25/19 18:19 09/27/19 18:16 Tylenol Elixir PO 650 mg Q4H PRN Administration Fever/Mild Pain (1-3) Sodium Chloride 1,000 mls @ 70 mls/hr 09/25/19 19:30 09/27/19 21:41 Normal Saline 0.9% IV 1,000 mls .[id number] STEFANI Administration Pantoprazole Sodium 40 mg 09/26/19 09:00 09/27/19 21:40 Protonix IVP 40 mg Q12HR STEFANI Administration Simvastatin 5 mg 09/27/19 21:00 09/27/19 21:40 Zocor PO 5 mg HS STEFANI Administration - Exam General Appearance: negative: NAD, awake alert, ill appearing Heart: RRR, no murmur, no gallops, no rubs, normal peripheral pulses Respiratory: CTAB, no wheezes, no rales, no ronchi, normal chest expansion, no tachypnea, normal percussion Gastrointestinal: soft, non-tender, non-distended, normal bowel sounds, no palpable masses, no hepatomegaly, no splenomegaly, no bruit Extremities: no edema Psychiatric: normal affect, normal behavior, A&O x 3 Hosp A/P - Plan chronic symptmatic microcytic anemia -clinically improving -s/p 3 x PRBC; HgB increased as expected; remains stable -EGD aborted in order to rule out COVID; pending test otherwise no change in managment
[2019-09-28] MEDS: Acetaminophen 650 MG/20.3 ML UDCUP PO PRN (04:15)
[2019-09-28 04:59] LABS: #Eosinphils 0.4 thou/uL (0.0-0.7); #Lymphocytes 1.7 thou/uL (1.20-3.40); #Monocytes 0.6 thou/uL (0.11-0.59); #Neutrophils 3.6 thou/uL (1.40-6.50); %Basophils 0.5 % (0.0-1.0); %Eosinophils 6.6 % (0.0-10.0); %Lymphocytes 26.6 % (21.0-51.0); %Monocytes 9.1 % (0.0-10.0); %Neutrophils 57.2 % (42.0-75.0); Hemoglobin 8.5 g/dL (14.0-18.0); Mean Corpuscular HGB CONC 31.8 g/dL (32.0-36.0); Mean Corpuscular Hemoglobin 24.8 pg (27.0-31.0); Mean Platelet Volume 8.4 fL (7.4-10.4); Platelet Count 325 thou/uL (130-400); RBC Distribution Width 20.1 % (11.5-14.5); Red Blood Cell (RBC) Count 3.41 mill/uL (4.70-6.10); White Blood Cell (WBC) Count 6.2 thou/uL (4.8-10.8)
[2019-09-28 05:27] LABS: Anion Gap 9 mmol/L (10-20); BUN (Urea Nitrogen) 6 mg/dL (8.4-25.7); Calc. Creatinine Clearance 90 mL/min (70-130); Calcium 7.8 mg/dL (7.8-10.44); Carbon Dioxide 23 mmol/L (23-31); Chloride 107 mmol/L (98-107); Estimated GFR-MDRD Greater than 90; Glucose 98 mg/dL (83-110); Magnesium 1.9 mg/dL (1.6-2.6); Potassium 3.7 mmol/L (3.5-5.1); Sodium 135 mmol/L (136-145)
[2019-09-28] MEDS: Pantoprazole 40 MG VIAL IVP SCH ×2 (08:59→21:32)
--- NOTE | 2019-09-28 11:52 | PRG ---
DATE OF SERVICE: 09/28/2019 SUBJECTIVE: The patient is without any issue overnight. He is eating fine. Had a good bowel movement this morning. No signs of overt GI bleeding. PHYSICAL EXAMINATION: VITAL SIGNS: Temperature is 98.9, blood pressure 106/69, pulse of 69. Physical exam is not performed. LABORATORY DATA: WBC 6.2, hemoglobin 8.5, and platelet count of 325. Electrolytes within normal range. Creatinine 0.69. ASSESSMENT: 1. Recurrent severe anemia without any overt gastrointestinal bleeding. 2. Status post repair of large hiatal hernia, now with mild intermittent solid food dysphagia. PLAN: Once COVID testing is available, we will proceed with EGD/colonoscopy for evaluation of his microcytic anemia/iron deficiency. The patient has not had any colonoscopy within the last 10 years. Job ID: [id number] [facility]
[2019-09-28] MEDS: Sodium Chloride 0.9% 1,000 ML IV SCH (11:56)
--- NOTE | 2019-09-28 13:54 | PDOC.HOSPP ---
- Subjective Encounter Date: 09/28/19 Encounter Time: 08:00 Subjective: no overnight evnets. continue to feel better and more energized. has no complaints. pending covid ruleout then EGD - Objective Vital Signs & Weight: Vital Signs (12 hours) Temp Pulse Resp BP Pulse Ox 09/28/19 11:50 97.9 F 65 20 156/81 H 95 09/28/19 07:40 95 09/28/19 07:23 98.9 F 69 20 106/69 97 09/28/19 04:21 97.0 F L 63 18 134/78 96 Weight Weight 158 lb 12.8 oz I&O: 09/27/19 09/28/19 09/29/19 06:59 06:59 06:59 Intake Total 830 2160 Output Total 875 2410 Balance -45 -250 Result Diagrams: 09/28/19 04:32 09/28/19 04:32 Hospitalist ROS - Review of Systems Constitutional: denies: fever, chills, sweats, weakness, malaise, other Respiratory: denies: cough, dry, shortness of breath, hemoptysis, SOB with excertion, pleuritic pain, sputum, wheezing, other Cardiovascular: denies: chest pain, palpitations, orthopnea, paroxysmal noc. dyspnea, edema, light headedness, other Genitourinary: denies: dysuria, frequency, incontinence, hematuria, retention, other - Medication Medications: Active Medications Generic Name Dose Route Start Last Admin Trade Name Freq PRN Reason Stop Dose Admin Acetaminophen 650 mg 09/25/19 18:19 09/28/19 04:15 Tylenol Elixir PO 650 mg Q4H PRN Administration Fever/Mild Pain (1-3) Sodium Chloride 1,000 mls @ 70 mls/hr 09/25/19 19:30 09/28/19 11:56 Normal Saline 0.9% IV 1,000 mls .[id number] STEFANI Administration Pantoprazole Sodium 40 mg 09/26/19 09:00 09/28/19 08:59 Protonix IVP 40 mg Q12HR STEFANI Administration Simvastatin 5 mg 09/27/19 21:00 09/27/19 21:40 Zocor PO 5 mg HS STEFANI Administration - Exam General Appearance: NAD, awake alert Heart: RRR, no murmur, no gallops, no rubs, normal peripheral pulses Respiratory: CTAB, no wheezes, no rales, no ronchi, normal chest expansion, no tachypnea, normal percussion Gastrointestinal: soft, non-tender, non-distended, normal bowel sounds, no palpable masses, no hepatomegaly, no splenomegaly, no bruit Extremities: no edema Psychiatric: normal affect, normal behavior, A&O x 3 Hosp A/P - Plan chronic symptmatic microcytic anemia -clinically improving - HgB remains stable -EGD aborted in order to rule out COVID; pending test otherwise no change in managment
[2019-09-28] MEDS: Simvastatin 5 MG TAB PO SCH (21:32)
[2019-09-29] MEDS: Acetaminophen 650 MG/20.3 ML UDCUP PO PRN ×2 (00:38→08:47)
[2019-09-29] MEDS: Sodium Chloride 0.9% 1,000 ML IV SCH ×2 (00:39→17:47)
[2019-09-29] MEDS: Pantoprazole 40 MG VIAL IVP SCH ×2 (08:47→21:06)
--- NOTE | 2019-09-29 12:21 | PRG ---
DATE OF SERVICE: 09/29/2019 REASON FOR CONSULTATION: Symptomatic anemia, prior history of upper GI bleeding. SUBJECTIVE: Since the patient has been ruled out for COVID-19 virus, he states that he has been able to get up and walk around the [place] without any difficulty and that he is feeling much better when compared to previous. He reiterated the fact that he was unable to adequately ambulate or stand for prolonged period of time at home without having to sit down due to increased dizziness and short of breath. During this hospitalization, he has not exhibited any overt signs of GI bleeding including hematemesis, melena, or hematochezia. Currently, he denies any nausea, vomiting, fevers, chills, abdominal pain, dysphagia, odynophagia. OBJECTIVE: VITAL SIGNS: Temperature 97, pulse 65, blood pressure 106/70, respiratory rate 16, and saturating 97% on room air. GENERAL: The patient is lying in bed, in no acute distress. Alert and oriented x4. CARDIOVASCULAR: Regular rate and rhythm. RESPIRATORY: Clear to auscultation bilaterally. ABDOMEN: Normoactive bowel sounds. Soft, nontender, nondistended. EXTREMITIES: No cyanosis, clubbing, or edema. LABORATORY DATA: Testing for the COVID-19 virus was negative. Otherwise, no other current studies are available for review. IMAGING DATA: No current GI imaging is available for review. ASSESSMENT AND PLAN: The patient is a 79-year-old male with past medical history of atrial fibrillation (no longer on anticoagulation), hyperlipidemia, gastroesophageal reflux disease, peptic ulcer disease, and a large hiatal hernia resulting in significant anemia in 2019, now status post repair, now presenting with recurrent symptomatic anemia. Symptomatic anemia. The patient was initially admitted to the hospital due to complaints of increased shortness of breath, both at rest and exertion. On initial evaluation in the ER, he was noted to have a significantly decreased hemoglobin and hematocrit, but denied any overt bleeding sources. He did have an upper endoscopy performed in November 2018 which showed a large amount of blood and blood material within the stomach on the upper endoscopy that was felt to be due to his large hiatal hernia and the presence of Migue's ulcerations. He subsequently had this large hiatal hernia repaired, but is now again presenting with a symptomatic anemia concerning for possible GI process. Now that the patient has been ruled out for COVID-19 virus. Upper endoscopy is indicated for further evaluation. RECOMMENDATIONS: 1. We would continue to trend his H and H and transfuse as necessary to maintain an H and H of 7/. 2. Continue to monitor clinically for signs of active GI bleeding. 3. We would continue PPI 40 mg IV b.i.d. in light of possible upper GI bleed. 4. We will place the patient on a clear liquid diet today with GoLYTELY prep tonight in anticipation of both EGD and colonoscopy tomorrow. 5. Further recommendations to follow endoscopies. We will continue to follow. Please call with any questions. Job ID: [id number]
--- NOTE | 2019-09-29 16:08 | PDOC.HOSPP ---
- Subjective Encounter Date: 09/29/19 Encounter Time: 09:00 Subjective: no overnight events. covid ruled out. pending EGD and colonoscopy. No complaints. - Objective Vital Signs & Weight: Vital Signs (12 hours) Temp Pulse Pulse Resp BP BP BP 09/29/19 12:00 97.2 F L 67 14 155/93 H 09/29/19 09:04 78 141/80 H 106/70 09/29/19 07:25 97.0 F L 65 16 158/81 H Pulse Ox 09/29/19 12:00 96 09/29/19 09:04 09/29/19 07:25 97 Weight Weight 160 lb 0.9 oz I&O: 09/28/19 09/29/19 09/30/19 06:59 06:59 06:59 Intake Total 2160 2940 Output Total 2410 2660 Balance -250 280 Result Diagrams: 09/28/19 04:32 09/28/19 04:32 Hospitalist ROS - Review of Systems Constitutional: denies: fever, chills, sweats, weakness, malaise, other Respiratory: denies: cough, dry, shortness of breath, hemoptysis, SOB with excertion, pleuritic pain, sputum, wheezing, other Cardiovascular: denies: chest pain, palpitations, orthopnea, paroxysmal noc. dyspnea, edema, light headedness, other Gastrointestinal: denies: nausea, vomiting, abdominal pain, diarrhea, constipation, melena, hematochezia, other Genitourinary: denies: dysuria, frequency, incontinence, hematuria, retention, other - Medication Medications: Active Medications Generic Name Dose Route Start Last Admin Trade Name Freq PRN Reason Stop Dose Admin Acetaminophen 650 mg 09/25/19 18:19 09/29/19 08:47 Tylenol Elixir PO 650 mg Q4H PRN Administration Fever/Mild Pain (1-3) Sodium Chloride 1,000 mls @ 70 mls/hr 09/25/19 19:30 09/29/19 00:39 Normal Saline 0.9% IV 1,000 mls .[id number] STEFANI Administration Pantoprazole Sodium 40 mg 09/26/19 09:00 09/29/19 08:47 Protonix IVP 40 mg Q12HR STEFANI Administration Simvastatin 5 mg 09/27/19 21:00 09/28/19 21:32 Zocor PO 5 mg HS STEFANI Administration - Exam General Appearance: NAD, awake alert Neck: no JVD Heart: RRR, no murmur, no gallops, no rubs, normal peripheral pulses Respiratory: CTAB, no wheezes, no rales, no ronchi, normal chest expansion, no tachypnea, normal percussion Gastrointestinal: soft, non-tender, non-distended, normal bowel sounds, no palpable masses, no hepatomegaly, no splenomegaly, no bruit Extremities: no edema Hosp A/P - Plan chronic symptmatic microcytic anemia -clinically improving - HgB remains stable -covid ruled out; pending egd and colonoscopy otherwise no change in managment
[2019-09-29] MEDS ORDERED: GoLYTELY 4,000 ml Bottle PO SCH (20:00)
[2019-09-29] MEDS: Simvastatin 5 MG TAB PO SCH (21:06)
[2019-09-30 05:04] LABS: #Basophils 0.1 thou/uL (0.0-0.2); #Eosinphils 0.5 thou/uL (0.0-0.7); #Monocytes 0.7 thou/uL (0.11-0.59); #Neutrophils 3.4 thou/uL (1.40-6.50); %Basophils 0.9 % (0.0-1.0); %Eosinophils 7.8 % (0.0-10.0); %Monocytes 9.9 % (0.0-10.0); %Neutrophils 51.5 % (42.0-75.0); Hemoglobin 8.6 g/dL (14.0-18.0); Mean Corpuscular HGB CONC 31.5 g/dL (32.0-36.0); Mean Corpuscular Hemoglobin 24.9 pg (27.0-31.0); Mean Platelet Volume 8.5 fL (7.4-10.4); Platelet Count 305 thou/uL (130-400); RBC Distribution Width 20.8 % (11.5-14.5); Red Blood Cell (RBC) Count 3.46 mill/uL (4.70-6.10); White Blood Cell (WBC) Count 6.6 thou/uL (4.8-10.8)
[2019-09-30 05:23] LABS: Anion Gap 9 mmol/L (10-20); BUN (Urea Nitrogen) 5 mg/dL (8.4-25.7); Calc. Creatinine Clearance 106 mL/min (70-130); Calcium 7.8 mg/dL (7.8-10.44); Carbon Dioxide 23 mmol/L (23-31); Chloride 107 mmol/L (98-107); Estimated GFR-MDRD Greater than 90; Glucose 86 mg/dL (83-110); Magnesium 1.9 mg/dL (1.6-2.6); Potassium 4.1 mmol/L (3.5-5.1); Sodium 135 mmol/L (136-145)
[2019-09-30] MEDS: Sodium Chloride 0.9% 1,000 ML IV SCH ×2 (08:04→20:43)
[2019-09-30] MEDS ORDERED: Sodium Chloride 0.9% 1,000 ML IV SCH (09:00)
[2019-09-30] MEDS: Pantoprazole 40 MG VIAL IVP SCH ×2 (09:00→20:42)
[2019-09-30] MEDS: Acetaminophen 325 MG TAB PO PRN (12:04)
[2019-09-30] MEDS ORDERED: Glycopyrrolate 0.2 MG/ML 5 ML SYRINGE ONE (13:43)
[2019-09-30] MEDS ORDERED: Succinylcholine Chloride 20 MG/ML 10 ml SYRINGE FS ONE (13:43)
[2019-09-30] MEDS ORDERED: Lidocaine 1% PF 5 ML VIAL ONE (13:43)
[2019-09-30] MEDS ORDERED: Ondansetron PF 4 MG/2 ML Vial ONE (13:43)
[2019-09-30] MEDS ORDERED: PHENYLEPHRINE-NS 100 MCG/ML 10 ML SYRINGE ONE (13:43)
[2019-09-30] MEDS ORDERED: Rocuronium Bromide 10 MG/ML (10ML VIAL) ONE (13:43)
[2019-09-30] MEDS ORDERED: PROPOFOL 200 MG/20 ML VIAL ONE (13:43)
--- NOTE | 2019-09-30 14:29 | PDOC.HOSPP ---
- Subjective Encounter Date: 09/30/19 Encounter Time: 09:00 Subjective: no overnight events. partially tolerated golytely this morning. BP 70/50 while having bowel movement sitting. received bolus fluid and responded. On encounter , feeling well and has no compliants. denies dizziness, presyncope, chest pain, palpiatitations. - Objective Vital Signs & Weight: Vital Signs (12 hours) Temp Pulse Resp BP BP Pulse Ox 09/30/19 11:07 97.6 F 77 16 100/70 97 09/30/19 07:40 97.6 F 82 16 128/76 97 09/30/19 03:56 97.4 F L 68 16 169/90 H 98 Weight Weight 158 lb I&O: 09/29/19 09/30/19 10/01/19 06:59 06:59 06:59 Intake Total 2940 4400 Output Total 2660 3230 Balance 280 1170 Result Diagrams: 09/30/19 04:29 09/30/19 04:29 Hospitalist ROS - Review of Systems Constitutional: denies: fever, chills, sweats, weakness, malaise, other Respiratory: denies: cough, dry, shortness of breath, hemoptysis, SOB with excertion, pleuritic pain, sputum, wheezing, other Cardiovascular: denies: chest pain, palpitations, orthopnea, paroxysmal noc. dyspnea, edema, light headedness, other Gastrointestinal: reports: diarrhea. denies: nausea, vomiting, abdominal pain, constipation, melena, hematochezia, other Genitourinary: denies: dysuria, frequency, incontinence, hematuria, retention, other - Medication Medications: Active Medications Generic Name Dose Route Start Last Admin Trade Name Freq PRN Reason Stop Dose Admin Acetaminophen 650 mg 09/30/19 11:59 09/30/19 12:04 Tylenol PO 650 mg Q4H PRN Administration Fever/Mild Pain (1-3) Sodium Chloride 1,000 mls @ 70 mls/hr 09/25/19 19:30 09/30/19 08:04 Normal Saline 0.9% IV Not Given .[id number] STEFANI Pantoprazole Sodium 40 mg 09/26/19 09:00 09/30/19 09:00 Protonix IVP 40 mg Q12HR STEFANI Administration Simvastatin 5 mg 09/27/19 21:00 09/29/19 21:06 Zocor PO 5 mg HS STEFANI Administration - Exam General Appearance: NAD, awake alert Neck: no JVD Heart: RRR, no murmur, no rubs Heart - other findings: gallop appreciated Respiratory: CTAB, no wheezes, no rales, no ronchi, normal chest expansion, no tachypnea, normal percussion Gastrointestinal: soft, non-tender, non-distended, normal bowel sounds, no palpable masses, no hepatomegaly, no splenomegaly, no bruit Extremities: no edema Psychiatric: normal affect, normal behavior, A&O x 3 Hosp A/P - Plan chronic symptmatic microcytic anemia -clinically improving - HgB remains stable -pending egd and colonoscopy #orthostatic hypotension -s/p golytely -responded to IVF bolus -start back on IVF once back from procedure otherwise no change in managment
[2019-09-30] MEDS ORDERED: Promethazine HCl 25 MG/ML VIAL SLOW IVP PRN (17:47)
[2019-09-30] MEDS ORDERED: Promethazine HCl 25 MG/ML VIAL IM PRN (17:47)
[2019-09-30] MEDS ORDERED: Ondansetron HCl/PF 4 MG/2 ML Vial IVP PRN (17:47)
--- NOTE | 2019-09-30 19:50 | OP ---
DATE OF PROCEDURE: 09/30/2019 PROCEDURES: Esophagogastroduodenoscopy (diagnostic), colonoscopy with biopsy, polypectomy, and submucosal injection. INDICATION FOR PROCEDURE: Symptomatic anemia, history of large hiatal hernia with Migue ulcerations. DESCRIPTION OF PROCEDURE: After the risks and benefits of the procedures were explained to the patient including risks of bleeding, infection, perforation, reactions to anesthesia, aspiration, and/or pain, informed consent was obtained. The patient was then taken to the endoscopy suite, where general anesthesia was given followed by endotracheal tube intubation. Once the patient was intubated and sedated, he was maneuvered into the left lateral decubitus position, followed by introduction of the standard gastroscope, which was then advanced into the mouth with intubation of the esophagus, stomach, and the proximal small intestines with the findings listed below. The patient tolerated this portion of the procedure well with no immediate perioperative complications. Upon conclusion of this portion of the procedure, all equipment was removed from the patient and the bed was rotated 180 degrees in anticipation of the colonoscopy. A digital rectal examination was then performed followed by introduction of the standard colonoscope which was then advanced to the terminal ileum with some difficulty secondary to tortuosity of the colon and poor colonic preparation that necessitated abdominal pressure in order to facilitate passage of the scope. The quality of the prep was fair to poor with a moderate amount of retained solid and liquid stool seen throughout the entire colon. The patient tolerated this portion of the procedure well with no immediate perioperative complications. On conclusion of the procedure, all equipment was removed from the patient and he was transferred to PACU in satisfactory condition. EGD FINDINGS: Esophagus: Normal-appearing mucosa was seen in the proximal esophagus, however, extending from the mid esophagus, a significant amount of scar tissue and ulcerations was seen in a circumferential manner affecting the entire esophagus down to the gastroesophageal junction at 41 cm. There was no evidence of active or recent bleeding associated with this scar tissue and ulcerations. However, the diaphragmatic pinch was seen at 41 cm while the GE junction was well seen at 36 cm denoting a 5-cm hiatal hernia. There was no evidence of active/recent bleeding or mass lesions seen within the esophagus. Stomach: A large amount of retained food was seen in both the hernia sac and within the stomach itself. Using a [place] Net to remove the majority of the food material, adequate visualization of the gastric mucosa was then achieved. Within the hernial sac itself, there was no evidence of active or recent bleeding. However, at the diaphragmatic pinch, there was a 7-to 8-mm clean based ulceration that did not exhibit any high-risk stigmata of active or recent bleeding. No biopsies were taken from this lesion given that the most likely diagnosis would be a Migue ulceration and given the presence of his ulcerations in the past in the same spot. Normal-appearing mucosa was then seen in the gastric cardia, fundus, body (except for the ulceration), greater curvature, antrum, and incisura. There was no evidence of mass lesions or active/recent bleeding seen throughout the entire stomach. Duodenum: Normal-appearing mucosa was seen in both the duodenal bulb and second portion of the duodenum. There was no evidence of erosions, ulcerations, mass lesions, or active/recent bleeding. IMPRESSION: 1. 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 2. Retained solid food within the hernia sac and within the stomach itself suggestive but not diagnostic of a gastroparesis. 3. LA grade D reflux mediated erosive esophagitis. COLON FINDINGS: Digital rectal exam: Normal findings were seen on external examination. However, the patient did exhibit some decreased sphincter tone at the anal sphincter. Colon findings: Normal-appearing mucosa was seen within the terminal ileum as well as at the appendiceal orifice and ileocecal valve. However, just distal to the ileocecal valve was a large 3 cm linear polyp/mass that extended between multiple folds within the colon itself. Given the size and positioning of this ulceration, it was not amenable to endoscopic resection. As such, multiple biopsies were taken and placed in a specimen jar for further evaluation. A tattoo was then placed on both the proximal and distal ends of the polyp/lesion itself for future reference. A moderate amount of both retained solid and liquid stool was seen throughout the entire colon that did limit visualization of the colonic mucosa somewhat with only approximately 70% of the colonic mucosa visualized. Of the mucosa visualized, normal-appearing mucosa was then seen in the mid and distal ascending colons. In the proximal transverse colon, a 1-cm semi pedunculated polyp was seen and completely removed with snare cautery polypectomy. It was retrieved and placed in a specimen jar for further evaluation. Normal-appearing mucosa was then seen in the distal transverse, descending, sigmoid colon and rectum. Normal findings were seen on rectal retroflexion. IMPRESSION: 1. A 3-cm linear polyp/mass seen in the distal cecum/proximal ascending colon status post biopsy and tattoo placement due to lack of ability for endoscopic resection. 2. A 1-cm proximal transverse colon status post snare cautery polypectomy. RECOMMENDATIONS: 1. We would continue to trend his H and H and transfuse as necessary to maintain an H and H of 7/21. 2. Continue to monitor clinically for signs of active GI bleeding. 3. We will place the patient on iron supplementation given the blood loss, most likely experience the GI tract either from the ulceration or from the polypoid lesion itself. 4. We will follow up on the biopsy results for the polyps in the colon but the patient will most likely need a right hemicolectomy related to the large cecal/ascending colon polyp not excised today. 5. We will continue the patient on pantoprazole 40 mg IV b.i.d. 6. We would consult with either General Surgery or Cardiothoracic Surgery for repair of the large hiatal hernia contributing to the formation of Migue ulcerations and subsequently GI bleeding. We will continue to follow peripherally for now. Please call with any questions. Job ID: [id number]
[2019-09-30] MEDS: Simvastatin 5 MG TAB PO SCH (20:42)
[2019-10-01] MEDS: Acetaminophen 325 MG TAB PO PRN ×3 (00:41→20:41)
[2019-10-01 04:50] LABS: Hemoglobin 8.4 g/dL (14.0-18.0); Platelet Count 295 thou/uL (130-400)
[2019-10-01 05:17] LABS: Anion Gap 11 mmol/L (10-20); BUN (Urea Nitrogen) 5 mg/dL (8.4-25.7); Calc. Creatinine Clearance 95 mL/min (70-130); Calcium 7.7 mg/dL (7.8-10.44); Carbon Dioxide 21 mmol/L (23-31); Chloride 106 mmol/L (98-107); Estimated GFR-MDRD Greater than 90; Glucose 90 mg/dL (83-110); Magnesium 1.8 mg/dL (1.6-2.6); Potassium 3.7 mmol/L (3.5-5.1); Sodium 134 mmol/L (136-145)
[2019-10-01] MEDS: Pantoprazole 40 MG VIAL IVP SCH ×2 (08:09→20:41)
[2019-10-01] MEDS: Sodium Chloride 0.9% 1,000 ML IV SCH (08:14)
--- NOTE | 2019-10-01 09:59 | EKG ---
Test Reason : DIZZINESS/WEAKNESS Blood Pressure : / mmHG Vent. Rate : 079 BPM Atrial Rate : 079 BPM P-R Int : 204 ms QRS Dur : 104 ms QT Int : 404 ms P-R-T Axes : 027 -23 022 degrees QTc Int : 463 ms Normal sinus rhythm Minimal voltage criteria for LVH, may be normal variant Septal infarct , age undetermined Abnormal ECG Confirmed by ANG OCHOA ([id number]), editorial assistant BUSTER RICCI ([id number]) on 10/01/2019 9:58:51 AM Referred By: Confirmed By:ANG OCHOA
--- NOTE | 2019-10-01 12:21 | PRG ---
DATE OF SERVICE: 10/01/2019 REASON FOR CONSULTATION: Symptomatic anemia, prior history of upper GI bleeding secondary to large hiatal hernia/Migue ulceration. SUBJECTIVE: The patient underwent both EGD and colonoscopy yesterday with no evidence of perioperative complications. Overnight, there was no acute events or problems as well. Today, he states that he is otherwise doing well with no additional problems or complaints. He has not had a bowel movement since the colonoscopy yesterday, but has been able to urinate without difficulty. Currently, he denies any nausea, vomiting, fevers, chills, abdominal pain, dysphagia, odynophagia, hematemesis, melena, or hematochezia. OBJECTIVE: VITAL SIGNS: Temperature 98, pulse 110, blood pressure 118/64, respiratory rate 18, and saturating 97% on room air. GENERAL: The patient was sitting at bedside, in no acute distress. Alert and oriented x4. CARDIOVASCULAR: Regular rate and rhythm. RESPIRATORY: Clear to auscultation bilaterally. ABDOMEN: Normoactive bowel sounds. Soft, nontender, and nondistended. EXTREMITIES: No cyanosis, clubbing, or edema. LABORATORY DATA: Hemoglobin of 8.4 and hematocrit 27.2. Chemistry with a sodium of 134, potassium 3.7, chloride 106, CO2 of 21, BUN 5, creatinine 0.65, and glucose 90. IMAGING DATA: The patient underwent both EGD and colonoscopy on 09/30/2019, which showed the presence of a 5 cm hiatal hernia in the upper endoscopy in addition to a 7 to 8 mm clean-based ulceration at the diaphragmatic pinch, consistent with a Migue ulceration. The colonoscopy also yielded a 3 cm flat polyp at the junction between the cecum and the ascending colon, that was not able to be removed endoscopically. Biopsies were taken and tattoos placed for further reference. ASSESSMENT AND PLAN: The patient is a 79-year-old male with past medical history of atrial fibrillation (no longer on anticoagulation), hyperlipidemia, gastroesophageal reflux disease, peptic ulcer disease, and a large hiatal hernia, resulting in significant anemia via Migue's ulcerations in 2019 and was repaired later in 2019, now presenting recurrent symptomatic anemia, most likely secondary to a recurrence of his large hiatal hernia and the presence of Migue ulcerations. 1. Symptomatic anemia/Migue ulcerations: The patient was initially admitted to the hospital in 11/2018, with an upper endoscopy at that time showing the presence of a large hiatal hernia and the presence of Migue ulcerations, most likely contributing to bleeding. He was subsequently transferred to [facility] in [place], where supposedly the patient underwent a hiatal hernia repair and the patient had been doing well until recently. However, 2 to 3 weeks prior to admission, he began having increased shortness of breath at both rest and exertion. On evaluation in the ER, he was deemed to have a recurrent significant anemia, most likely contributing to his current symptoms. Upper and lower endoscopy was performed on 09/30/2019, with the upper endoscopy showing the presence of a large hiatal hernia (5 cm in size) along with a 7 to 8 mm clean-based ulceration along the diaphragmatic pinch, consistent with a Migue ulceration. While the ulceration did not exhibit any evidence of high-risk stigmata of active or recent bleeding, this is the most likely source for the patient's anemia at this time, especially given bleeding from these types of lesions in the recent past. Recommendations: a. We would continue to trend his hemoglobin and hematocrit and transfuse as necessary to maintain the hemoglobin and hematocrit of 7/21. b. Continue to monitor clinically for signs of active GI bleeding. c. Continue PPI 40 mg b.i.d. in light of this Migue ulceration. d. We have consulted the General Surgery Service for evaluation of the patient's case and possible surgical correction of this hiatal hernia. However, if the Surgical Service here cannot do the procedure, then the patient may need to be transferred back to [facility] for further evaluation either as an inpatient or outpatient. e. Advance diet as tolerated. f. Would avoid any NSAIDs or anticoagulation. 2. Large colonic polyp: The patient underwent colonoscopy on 09/30/2019, which showed the presence of a 3 cm flat polyp at the junction between the cecum and ascending colon, that was not able to be endoscopically resected due to its large size and the fact that it was extending between multiple folds. The lesion itself was biopsied and tattoo placed for further reference. At this time, given the lack of features for successful endoscopic resection without perforation, the patient will need surgery in order to remove this particular lesion. Recommendations: a. We will follow up on the biopsy results, but would recommend a repeat colonoscopy in 1 year after surgical resection given poor prep on the colonoscopy yesterday and the large polyp seen at that time. b. I have already consulted the General Surgery Service for evaluation of the patient's case and possible cecectomy versus right hemicolectomy. At this time, we have no further recommendations. We will sign off at this time. Please call with any additional questions. Job ID: [id number]
--- NOTE | 2019-10-01 14:35 | CON ---
DATE OF CONSULTATION: 10/01/2019 HISTORY OF PRESENT ILLNESS: This is a 79-year-old male with a history of large hiatal hernia repair at [facility] in [place] in last year complicated by recurrence. He was seen in hospital here for symptomatic anemia, hemoglobin down to 6. He underwent endoscopy upper and lower by Dr. Lynn, which reveals Migue ulcers in the hiatal hernia at the hiatus. Has a persistent large hiatal hernia present on that study. Of note on his colonoscopy, he also has unresectable 3 cm polyp in the cecum. The patient notes no melena or hematochezia. He notes chronic shortness of breath. Of note, the patient had this hiatal hernia repair in [place] that was complicated by need for tracheostomy. He did have feeding tube present until he was done with rehab there. He is still significantly limited in terms of activities of daily living and independent living. PAST MEDICAL HISTORY: Includes atrial fibrillation, supposed to be on Eliquis and amiodarone, but he stopped them on his own. Hiatal hernia and esophagitis. PAST SURGICAL HISTORY: Inguinal hernia bilateral, large hiatal hernia repair, and tracheostomy. SOCIAL HISTORY: No smoking, alcohol, or other drugs. REVIEW OF SYSTEMS: Ten-system review of systems is otherwise negative as described above. ALLERGIES: CODEINE AND MEPERIDINE. FAMILY HISTORY: Noncontributory to GI malignancy or anesthetic related complications. PHYSICAL EXAMINATION: VITAL SIGNS: His pulse is 73, blood pressure is 139/79, and respirations 16. He is afebrile. HEENT: Sclerae are anicteric. Oropharynx clear. NECK: No lymphadenopathy. Well-healed trach site. CHEST: Clear. HEART: Regular rate. ABDOMEN: Soft and nontender. He has multiple small laparoscopic well-healed incision. Well-healed G-tube site. I look for a left chest tube healed site, I do not see any. EXTREMITIES: No ischemia or edema to extremities. LABORATORY DATA: Today's hemoglobin is 8.4, his white count is 6, and platelet count is 295. X-ray, there is no new CT scans available. Looking back at a thoracic lumbar CTs from earlier this year, you can see persistent or recurrent large hiatal hernia present. ASSESSMENT: 1. Recurrent hiatal hernia, large complex with Migue ulcers present, causing symptomatic anemia down to the 6 range. 2. Unresectable cecal polyp, likely asymptomatic at this time and not the source of chronic anemia. 3. Chronic deconditioning with history of a prolonged healing course after previous hiatal hernia repair in [place]. PLAN: The patient certainly has a recurrent significant hiatal hernia present. I had seen and evaluated him last summer and recommended he be seen in [place] for this complex hernia. At that time, I thought given the large size of this hernia that he may need a chest thoracotomy approach, now that he has a recurrence of an abdominal laparoscopic procedure that may be the next step. Our options are if he is going to have a surgical repair of this, it will likely have to be done at [facility]. Certainly, this is a very complicated hiatal hernia with high risk for additional recurrence. Another hiatal hernia repair on him is going to be fraught with complications of perforation, bleeding, respiratory failure, need for further tracheostomy. My recommendation would be to have him transferred back to [place] for this repair now. At the same time, he knows if he is fairly stable at this point, his hemoglobin is up, could this be converted to outpatient referral back down there, I am unsure if there are any social limitations to that. Certainly his repair is not urgent at this time and I suspect that his hemoglobin will stay fairly constant after recent transfusion. The colon polyp would have to be addressed either at the time of that surgery or at a second stage surgery, it is by no means urgent and that polyp could likely be present for months before definitive excision would have to be done. We will discuss with Dr. Lynn. Job ID: [id number]
--- NOTE | 2019-10-01 14:40 | PDOC.HOSPP ---
- Subjective Encounter Date: 10/01/19 Subjective: No evidence of bleeding - Objective Vital Signs & Weight: Vital Signs (12 hours) Temp Pulse Resp BP Pulse Ox 10/01/19 11:01 98 F 110 H 18 118/64 97 10/01/19 07:09 98.4 F 73 16 139/79 95 Weight Weight 159 lb I&O: 09/30/19 10/01/19 10/02/19 06:59 06:59 06:59 Intake Total 4400 2800 Output Total 3230 1300 Balance 1170 1500 Result Diagrams: 10/01/19 04:41 10/01/19 04:41 Hospitalist ROS - Medication Medications: Active Medications Generic Name Dose Route Start Last Admin Trade Name Freq PRN Reason Stop Dose Admin Acetaminophen 650 mg 09/30/19 11:59 10/01/19 05:40 Tylenol PO 650 mg Q4H PRN Administration Fever/Mild Pain (1-3) Sodium Chloride 1,000 mls @ 70 mls/hr 09/25/19 19:30 10/01/19 08:14 Normal Saline 0.9% IV 1,000 mls .[id number] STEFANI Administration Pantoprazole Sodium 40 mg 09/26/19 09:00 10/01/19 08:09 Protonix IVP 40 mg Q12HR STEFANI Administration Simvastatin 5 mg 09/27/19 21:00 09/30/19 20:42 Zocor PO 5 mg HS STEFANI Administration - Exam General Appearance: awake alert ENT: normocephalic atraumatic Neck: supple, no JVD Heart: RRR Respiratory: normal chest expansion, no tachypnea Gastrointestinal: soft Neurological: cranial nerve grossly intact, no new deficit Hosp A/P (1) GI bleeding Code(s): K92.2 - GASTROINTESTINAL HEMORRHAGE, UNSPECIFIED Status: Acute (2) Colonic polyp Code(s): K63.5 - POLYP OF COLON Status: Acute (3) Stomach ulcer Code(s): K25.9 - GASTRIC ULCER, UNSP ACUTE OR CHRONIC, W/O HEMOR OR PERF Status: Acute (4) Anemia due to chronic blood loss Code(s): D50.0 - IRON DEFICIENCY ANEMIA SECONDARY TO BLOOD LOSS (CHRONIC) Status: Acute (5) Hiatal hernia Code(s): K44.9 - DIAPHRAGMATIC HERNIA WITHOUT OBSTRUCTION OR GANGRENE Status: Acute - Plan Status post EGD showing large hiatal hernia with ulcer and colonoscopy showing 2 colonic polyps status post biopsy and resection of 1 of the polyps. Continue IV PPI. Awaiting surgical consultation for the hiatal hernia.
[2019-10-01] MEDS: Simvastatin 5 MG TAB PO SCH (20:41)
[2019-10-02] MEDS: Sodium Chloride 0.9% 1,000 ML IV SCH (03:48)
[2019-10-02] MEDS: Pantoprazole 40 MG VIAL IVP SCH (08:20)
[2019-10-02 10:26] LABS: Hemoglobin 9.9 g/dL (14.0-18.0); Mean Corpuscular HGB CONC 30.6 g/dL (32.0-36.0); Mean Corpuscular Hemoglobin 24.3 pg (27.0-31.0); Mean Corpuscular Volume 79.5 fL (78.0-98.0); Mean Platelet Volume 8.8 fL (7.4-10.4); Platelet Count 303 thou/uL (130-400); RBC Distribution Width 21.1 % (11.5-14.5); Red Blood Cell (RBC) Count 4.07 mill/uL (4.70-6.10); White Blood Cell (WBC) Count 8.7 thou/uL (4.8-10.8)
[2019-10-02 10:40] LABS: Anion Gap 11 mmol/L (10-20); BUN (Urea Nitrogen) 4 mg/dL (8.4-25.7); Calc. Creatinine Clearance 93 mL/min (70-130); Calcium 8.2 mg/dL (7.8-10.44); Carbon Dioxide 24 mmol/L (23-31); Chloride 103 mmol/L (98-107); Estimated GFR-MDRD Greater than 90; Glucose 95 mg/dL (83-110); Potassium 3.9 mmol/L (3.5-5.1); Sodium 134 mmol/L (136-145)
[2019-10-02 10:45] LABS: Eosinophils 2 % (0-10); Hypochromia SLIGHT = 6-15 cells (100X) (0-5/hpf); Lymphocytes 10 % (21-51); MDiff Complete? YES; Monocytes 4 % (0-10); Neutrophil 82 % (42-75); Platelet Morphology Comment Appears Adequate; Reactive Lymphocytes 2 % (0-10)
[2019-10-02 11:27] VITALS: BP 169/99; TEMP 98.4
--- NOTE | 2019-10-02 19:13 | DIS ---
DATE OF ADMISSION: 09/25/2019 DATE OF DISCHARGE: 10/02/2019 DISCHARGE DIAGNOSES: 1. Gastrointestinal bleeding. 2. Stomach ulcer. 3. Hiatal hernia. 4. Colonic polyps. 5. Anemia due to acute on chronic blood loss. DISCHARGE MEDICATIONS: 1. Aspirin 81 mg orally daily. 2. Pravastatin 40 mg orally nightly. 3. Pantoprazole 40 mg orally twice daily. HISTORY OF PRESENT ILLNESS AND HOSPITAL COURSE: The patient is a 79-year-old male with past medical history of erosive esophagitis, GI bleeding, large hiatal hernia status post repair in [facility] in [place], [place], and history of paroxysmal atrial fibrillation, who was supposed to be on amiodarone and Eliquis, but was not taking the medications. He presented to the hospital with presyncope. He was admitted to the hospital in November of 2018, because of acute GI bleeding and was diagnosed with erosive esophagitis and large hiatal hernia. This was referred in [facility] and his hospitalization was complicated and prolonged requiring tracheostomy and PEG tube. The patient was discharged to the rehab and he recuperated well and the trach and PEG were removed. In the ER, the patient was found to be anemic with his hemoglobin level at 6. He was given blood transfusion, and admitted to the hospital for further management. The patient underwent endoscopy and colonoscopy, which revealed large hiatal hernia with ulcers at the hiatus. On colonoscopy, a 3 cm polyp was noted in the cecum with biopsies obtained. No evidence of gross bleeding was noted during his hospital stay. Surgical consult was obtained with regard to management of the hiatal hernia. Since this procedure will likely be a high-risk with possible complications, the recommendation was made to refer the patient back to [facility] in [place] in the near future for surgical repair. The patient is stable for discharge at this time. We will arrange outpatient followup with surgery and GI. Job ID: [id number]
== END 2019-10-02 14:15 | disposition home or self-care (01) | DRG 811 ==
LOC: ERS 14:10 → 2NO 17:07
PROVIDERS: ADMIT Internal Medicine; ATTEND Neuromusculoskeletal Medicine & OMM
PROC: 30233N1 Transfusion of Nonautologous Red Blood Cells into Peripheral Vein, Percutaneous Approach (ICD-10-PCS; principal; 2019-09-25)
PROC: 8E0ZXY6 Isolation (ICD-10-PCS; 2019-09-26)
PROC: 0DC68ZZ Extirpation of Matter from Stomach, Via Natural or Artificial Opening Endoscopic (ICD-10-PCS; 2019-09-30)
PROC: 0DBL8ZZ Excision of Transverse Colon, Via Natural or Artificial Opening Endoscopic (ICD-10-PCS; 2019-09-30)
PROC: 0DBK8ZX Excision of Ascending Colon, Via Natural or Artificial Opening Endoscopic, Diagnostic (ICD-10-PCS; 2019-09-30)
PROC: 0DBH8ZX Excision of Cecum, Via Natural or Artificial Opening Endoscopic, Diagnostic (ICD-10-PCS; 2019-09-30)
DX: D62 Acute posthemorrhagic anemia (principal); K25.4 Chronic or unspecified gastric ulcer with hemorrhage; Z20.828 Contact with and (suspected) exposure to other viral communicable diseases; K63.5 Polyp of colon; K44.9 Diaphragmatic hernia without obstruction or gangrene; I48.0 Paroxysmal atrial fibrillation; K21.0 Gastro-esophageal reflux disease with esophagitis; G89.29 Other chronic pain; M54.9 Dorsalgia, unspecified; E78.5 Hyperlipidemia, unspecified; R13.10 Dysphagia, unspecified; I95.1 Orthostatic hypotension; Z87.11 Personal history of peptic ulcer disease; Z88.5 Allergy status to narcotic agent; Z88.8 Allergy status to other drugs, medicaments and biological substances; Z79.899 Other long term (current) drug therapy; Z79.82 Long term (current) use of aspirin
CPT/HCPCS: 36415; 36430; 71045; 72128; 72131; 80048; 80053; 83735; 84484; 85007; 85014; 85018; 85025; 85027; 85049; 85610; 85730; 86850; 86900; 86901; 87635; 88305; 93005; C9113; J2001; J2405; J2704; J3490; P9016; U0002

== ENCOUNTER 2019-12-15 10:30 | Inpatient (IN) | payer MEDICARE, MEDICAID ==
--- NOTE | 2019-12-15 11:02 | RAD ---
Exam: Chest one view HISTORY:Syncope Comparison: 09/25/2019 FINDINGS: Cardiac silhouette:Normal cardiac silhouette. Aorta: Atherosclerosis of the aorta Pulmonary vessels: Normal Costophrenic angles: Minimal blunting of the left costophrenic angle. LUNGS: Persistent interstitial opacities in the lung parenchyma. Pneumothorax: None Osseous abnormalities: None IMPRESSION: Persistent interstitial opacities in the lung parenchyma which are felt to be chronic.
[2019-12-15 11:12] LABS: #Eosinphils 0.1 thou/uL (0.0-0.7); #Lymphocytes 0.8 thou/uL (1.20-3.40); #Monocytes 0.5 thou/uL (0.11-0.59); #Neutrophils 7.5 thou/uL (1.40-6.50); %Basophils 0.5 % (0.0-1.0); %Eosinophils 1.2 % (0.0-10.0); %Lymphocytes 8.7 % (21.0-51.0); %Monocytes 5.1 % (0.0-10.0); %Neutrophils 84.6 % (42.0-75.0); Hemoglobin 7.1 g/dL (14.0-18.0); Mean Corpuscular HGB CONC 29.7 g/dL (32.0-36.0); Mean Corpuscular Hemoglobin 21.9 pg (27.0-31.0); Mean Corpuscular Volume 73.8 fL (78.0-98.0); Mean Platelet Volume 8.6 fL (7.4-10.4); Platelet Count 338 thou/uL (130-400); RBC Distribution Width 18.2 % (11.5-14.5); Red Blood Cell (RBC) Count 3.24 mill/uL (4.70-6.10); White Blood Cell (WBC) Count 8.9 thou/uL (4.8-10.8)
[2019-12-15] MEDS ORDERED: Iopamidol-370 76% 500 ML 1 ML ONE (11:29)
--- NOTE | 2019-12-15 11:32 | CT ---
MASSIVE FACIAL BONE CT WITHOUT CONTRAST: HISTORY: Dizziness. Fall. Right-sided pain. COMPARISON: None. FINDINGS: No parenchymal hemorrhage. No extra-axial hematoma. No midline shift. Basilar cisterns are patent. Brain volume, age-appropriate. Cortical richards-white matter differentiation is preserved. No hydrocephalus. Bilateral ocular lenses are appropriately located. Both globes are intact. Retrobulbar fat is preserv ed. Symmetric attenuation of the optic nerves and ocular rectus muscles. There is a lateral right supraorbital hematoma. There is a minimally displaced right orbital floor fracture. No significant herniation of intraorbita l contents through the defect. Correlate clinically for entrapment. There is posttraumatic opacification of the right maxillary sinus. Additional fractures are noted along the posterior wall o f the right maxillary sinus. There is also a fracture at the articulation of the right zygomatic bone with the lateral margin of the orbits (axial image 23, series 5). Also nondisplaced fracture of the lateral margin of the right orbit is noted. Adequate aeration of the frontal sinuses, ethmoid air cells, sphenoid sinuses and left maxillary sinu s. Adequate mastoid air cell aeration. Patient is edentulous. Midline fatty raphae of the tongue is preserved. IMPRESSION: 1. Right maxillary sinus, and orbital fractures as described above. 2. No evidence of herniation of intraorbital contents through the right orbital floor fracture. Corre late clinically for entrapment. Transcribed Date/Time: 12/15/2019 11:37 AM
[2019-12-15 11:33] LABS: Anisocytosis SLIGHT = 6-15 cells (100X) (0-5/hpf); Hypochromia SLIGHT = 6-15 cells (100X) (0-5/hpf); MDiff Complete? YES; Microcytosis SLIGHT = 6-15 cells (100X) (0-5/hpf); Ovalocytes SLIGHT = 2-5 cells (100X) (0-1/hpf); Platelet Morphology Comment Appears Adequate; Polychromasia SLIGHT = 2-3 cells (100X) (0-2/hpf); Schistocytes SLIGHT = 2-5 cells (100X) (0-1/hpf); Target Cells SLIGHT = 2-5 cells (100X) (0-1/hpf)
--- NOTE | 2019-12-15 11:41 | CT ---
NONCONTRAST CT OF THE BRAIN: Date: 12/15/2019 INDICATION: History of fall, hitting right side of face. COMPARISON: Prior exam dated 01/19/2019. FINDINGS: There is generalized cerebral and cerebellar atrophy with chronic ischemic change that appears simila r to the comparison examination. No definite acute infarct, hemorrhage, or hydrocephalus is present. Septum pellucidum and third ventricle are midline. There is an area of hemorrhage layered within the right maxilla. There is suspicion for possible right orbital floor fracture. IMPRESSION: 1. No acute intracranial abnormality. 2. Suspicion for right inferior orbital floor fracture with an air hemorrhage layer within the right maxillary sinus. Recommend dedicated CT of the face for further evaluation. POS: [facility]
--- NOTE | 2019-12-15 11:42 | CT ---
CT CERVICAL SPINE WITHOUT CONTRAST: Date: 12/15/2019 INDICATION: History of fall with neck pain. COMPARISON: Prior exam dated 11/24/2018. FINDINGS: Multilevel spondylosis is stable appearing. No acute fracture or subluxation is evident. Osseous cent ral canal appears relatively well preserved. Prevertebral soft tissues are normal appearing. Lateral masses are symmetric. IMPRESSION: 1. No acute fracture or subluxation demonstrated. 2. Air hemorrhage layering in the right maxillary sinus. POS: [facility]
[2019-12-15 11:44] LABS: Anion Gap 10 mmol/L (10-20); BUN (Urea Nitrogen) 10 mg/dL (8.4-25.7); Calc. Creatinine Clearance 0 mL/min (70-130); Carbon Dioxide 20 mmol/L (23-31); Chloride 105 mmol/L (98-107); Sodium 131 mmol/L (136-145)
[2019-12-15 11:45] LABS: ALT (SGPT) Less than 7 U/L (8-55); AST (SGOT) 10 U/L (5-34); Albumin 2.5 g/dL (3.4-4.8); Alkaline Phosphatase 87 U/L (40-110); Bilirubin, Total 0.2 mg/dL (0.2-1.2); CK (CPK) 36 U/L (30-200); Calcium 7.6 mg/dL (7.8-10.44); Estimated GFR-MDRD 80; Globulin 2.4 g/dL (2.4-3.5); Glucose 92 mg/dL (83-110); Protein, Total 4.9 g/dL (5.8-8.1)
[2019-12-15 11:56] LABS: INR-International Normal Ratio 1.2; Prothrombin Time 14.7 sec (12.0-14.7)
[2019-12-15 12:02] LABS: PTT 29.9 sec (22.9-36.1)
[2019-12-15] MEDS ORDERED: Fentanyl 100 MCG/2 ML VIAL ONE (12:05)
[2019-12-15 12:11] LABS: D-Dimer Test 3.87 *mcg/mL (0.27-0.43)
--- NOTE | 2019-12-15 12:16 | RAD ---
RIGHT KNEE 4 VIEWS: Date: 12/15/2019 HISTORY: Fall, right knee pain. FINDINGS/IMPRESSION: There is a nondisplaced fracture involving the inferior pole of the patella. POS: [facility]
--- NOTE | 2019-12-15 13:39 | CT ---
CT PULMONARY ANGIOGRAM WITH IV CONTRAST AND 3D MIP RECONSTRUCTIONS: 12/15/19 PROVIDED CLINICAL HISTORY: Syncope. FINDINGS: The heart, pericardium, and great vessels demonstrate no acute abnormality. There is no evidence for central or segmental pulmonary embolus. Vascular calcification including coronary calcium is demonstr ated. There is a moderate hiatal hernia. There is somewhat mass-like prominence to the region of the GE ilda ction. There is fluid density throughout the thoracic esophagus with diffuse thoracic esophageal wall thickening and noncircumscribed fluid density within the adjacent posterior mediastinal fat. Questio nable prominent lymph node within the fat adjacent to the herniated gastric stomach proximally. Evaluation of the lung parenchyma is limited due to patient respiratory motion. There are patchy foci of tree-in-bud nodularity and ground glass opacity suspected involving the lingula. There is no pleural fluid or pneumothorax apparent. There is no evidence for thoracic lymph node enlargement. The visualized portions of the upper abdomen demonstrate no acute abnormality. The osseous structures demonstrate no concerning lytic or blastic lesions. IMPRESSION: 1. No evidence for central or segmental pulmonary embolus. 2. Vascular calcification including coronary calcium. 3. Moderate hiatal hernia with mass-like mucosal prominence in the region of the gastroesophagea l junction. There is fluid density and distention of the thoracic esophagus associated with esophagea l wall thickening and noncircumscribed paraesophageal fluid. Findings could be on the basis of gastri tis and esophagitis. Neoplasm is not excluded. Correlation with endoscopy is recommended. 4. Patchy air space disease involving the lingula, compatible with infectious pneumonitis. POS: [facility]
[2019-12-15] MEDS ORDERED: hydrALAZINE 20 MG/ML VIAL SLOW IVP PRN (13:53)
[2019-12-15] MEDS ORDERED: Dextrose 50% Abboject 50 ML SYRINGE SLOW IVP PRN (13:53)
[2019-12-15] MEDS ORDERED: Dextrose 5% in Water 1,000 ML IV PRN (13:53)
[2019-12-15] MEDS ORDERED: Ondansetron PF 4 MG/2 ML Vial IVP PRN (13:53)
[2019-12-15] MEDS ORDERED: traMADol HCl 50 MG TAB PO PRN (14:01)
[2019-12-15] MEDS: Acetaminophen 500 MG TAB PO SCH ×2 (15:50→20:37)
[2019-12-15] MEDS: traMADol HCl 50 MG TAB PO SCH (17:50)
[2019-12-15] MEDS: Gabapentin 300 MG CAP PO SCH (20:38)
[2019-12-15] MEDS ORDERED: Famotidine 20 MG TAB PO SCH (21:00)
[2019-12-15] MEDS: Ibuprofen 200 MG TAB PO SCH (22:18)
[2019-12-16] MEDS ORDERED: Sodium Chloride 0.9% 1,000 ML IV SCH (00:01)
[2019-12-16] MEDS: traMADol HCl 50 MG TAB PO SCH ×5 (00:52→23:00)
--- NOTE | 2019-12-16 01:25 | PRG ---
DATE OF SERVICE: 12/15/2019 SUBJECTIVE: Patient was seen on the telemetry unit, awake, alert, in no distress. Patient denies any pain at this time. Patient is in sinus rhythm on the monitoring specialist with a first-degree AV block, no ectopy noted. OBJECTIVE: VITAL SIGNS: Stable, afebrile. GENERAL: Well-appearing elderly male, awake, alert, in no distress. RESPIRATORY: Equal chest rise and fall, bilateral breath sounds clear. CARDIAC: Regular rate and regular rhythm. No murmurs. No pedal edema. EXTREMITIES: Moves all extremities, no focal deficits, right lower extremity in a knee immobilizer. NEUROLOGIC: No focal deficits, extraocular muscles are intact. DIAGNOSTICS: Echocardiogram is pending. ASSESSMENT: 1. Syncopal episode. 2. Status post ground level fall. 3. Right inferior orbital wall fracture without entrapment. 4. Right patella fracture. 5. Acute on chronic anemia. 6. Hypotension, resolved after 1 unit of blood. PLAN: 1. Continue telemetry monitoring overnight. Patient will be n.p.o. after midnight as Dr. Mendoza plans to take patient to the OR for repair of his right patella fracture. Oral Maxillofacial SurgeryDr. evaluated scans and recommends nonoperative treatment. Patient is to follow up outpatient in 7 to 10 days. Pain control and bowel regimen. 2. Physical Therapy and Occupational Therapy to evaluate and treat postop tomorrow. Echocardiogram is pending. We will repeat labs in the morning to reevaluate patient's hemoglobin and hematocrit. A post acute screen has been placed as the patient will likely need additional physical and occupational therapy. Job ID: [id number]
[2019-12-16] MEDS: Acetaminophen 500 MG TAB PO SCH ×4 (03:08→20:48)
[2019-12-16 04:46] LABS: #Basophils 0.1 thou/uL (0.0-0.2); #Eosinphils 0.4 thou/uL (0.0-0.7); #Lymphocytes 1.3 thou/uL (1.20-3.40); #Monocytes 0.5 thou/uL (0.11-0.59); #Neutrophils 2.8 thou/uL (1.40-6.50); %Basophils 1.1 % (0.0-1.0); %Eosinophils 7.5 % (0.0-10.0); %Lymphocytes 25.9 % (21.0-51.0); %Monocytes 9.7 % (0.0-10.0); %Neutrophils 55.8 % (42.0-75.0); Hemoglobin 7.7 g/dL (14.0-18.0); Mean Corpuscular HGB CONC 30.7 g/dL (32.0-36.0); Mean Corpuscular Hemoglobin 22.9 pg (27.0-31.0); Mean Corpuscular Volume 74.5 fL (78.0-98.0); Mean Platelet Volume 8.4 fL (7.4-10.4); Platelet Count 331 thou/uL (130-400); RBC Distribution Width 18.3 % (11.5-14.5); Red Blood Cell (RBC) Count 3.35 mill/uL (4.70-6.10); White Blood Cell (WBC) Count 5.1 thou/uL (4.8-10.8)
[2019-12-16 05:08] LABS: Phosphorus 3.1 mg/dL (2.3-4.7)
[2019-12-16 05:10] LABS: Anion Gap 5 mmol/L (10-20); BUN (Urea Nitrogen) 9 mg/dL (8.4-25.7); Calc. Creatinine Clearance 73 mL/min (70-130); Calcium 7.3 mg/dL (7.8-10.44); Carbon Dioxide 24 mmol/L (23-31); Chloride 107 mmol/L (98-107); Estimated GFR-MDRD Greater than 90; Glucose 92 mg/dL (83-110); Sodium 132 mmol/L (136-145)
[2019-12-16] MEDS: Ibuprofen 200 MG TAB PO SCH ×3 (06:00→22:58)
[2019-12-16] MEDS ORDERED: Sodium Phosphate 15 MMOL in Sodium Chloride 0.9% 250 ML 250 ML IVPB SCH (08:00)
--- NOTE | 2019-12-16 08:24 | CON ---
DATE OF CONSULTATION: This is Syed Birch PA-C dictating a report for Dominick Mendoza MD. HISTORY OF PRESENT ILLNESS: We were asked by Trauma in the ER to see the patient. The patient came in yesterday after a syncopal episode. He did hit his head and he feels like he is a little bit loopy and not comprehending things. On speaking with the patient, he vaguely remembers the fall. He was getting up and lost his balance and awoke on the floor. He has some quite interesting questions this morning and unfortunately I am unable to answer some of these, but he is able to tell me what hurts and not hurts. He knows who he is. He knows what month it is. Besides his mild headache and right knee pain, he does not feel he has any other injuries. No vision changes. He just does not quite feel with it. PAST MEDICAL HISTORY: Positive for heart issues, hyperlipidemia, high cholesterol. PAST SURGICAL HISTORY: Hernia x2, heart catheterization, trach and PEG with reversal and back surgery. PSYCHIATRIC HISTORY: None. SOCIAL HISTORY: Lives with his brother. Denies any alcohol. ALLERGIES: CODEINE, MEPERIDINE. CURRENT MEDICATIONS: 1. Pravastatin. 2. Aspirin. 3. Pantoprazole. REVIEW OF SYSTEMS: Denies any current chest pain or shortness of breath. No bowel or bladder issues. He has some right knee pain. Some pain to the right face and headache. Otherwise, rest of review of systems negative. PHYSICAL EXAMINATION: GENERAL: Well-nourished appearing male, resting in bed in room 259. He is not currently in any distress, but again he is asking some interesting fairly odd questions. I reiterated to the patient that I was unable to answer some of these questions, but one of them was the future and I think he does need to go to probably a skilled rehab as he has no family at home currently. Speech is clear. He is answering simple questions okay. He is oriented to month and person. HEENT: He does have some edema and ecchymosis on the right side of his face. Trachea, neck, no issues. Movement is good. EXTREMITIES: Upper extremities, equal size, shape, symmetry, normal bulk and tone. Strength, sensations are equal as are pulses. Some bruising to the arms, mostly on the right side. Lower extremities also equal size, shape, symmetry, normal bulk and tone with the exception of his right knee which is swollen and tender to palpation. He is able to wiggle his toes well, has good sensations. Pulses, DP and PT pulses are intact. VITAL SIGNS: Respirations 16. No acute distress PELVIS: No pain with rocking. ASSESSMENT: 1. Syncopal episode. 2. For orthopedic purposes, nondisplaced patella fracture. PLAN: The patient was told he would need surgery and was n.p.o. after midnight. We changed his diet status to a regular diet. He will not need surgery, but he will need to remain in a knee immobilizer for 4 to 8 weeks. We will see him back again in 2 to 4 weeks. Get some x-rays, possibly at that time to see how he is doing since the patient is not comprehending things well per him. We will get him working with PT and have everybody who sees him, nurses, PT, OT to reiterate that the knee immobilizer needs to stay on for all activities. The patient's current questions answered as best can be expected, but I told him Case Management would need to answer all the numerous future questions he has. Job ID: [id number]
[2019-12-16] MEDS: Gabapentin 300 MG CAP PO SCH ×2 (09:06→20:48)
--- NOTE | 2019-12-16 09:51 | HP ---
REFERRING PHYSICIAN: Dr. Fabricio Vinson in the emergency department. CRITICAL CARE/TRAUMA ATTENDING: Dr. Last Wadsworth. PRIMARY CARE: Dr. Caruso out of [facility]. HISTORY OF PRESENT ILLNESS: Mr. Coronel is a 79-year-old male with past medical history of hiatal hernia leading to GI bleeding in the past, chronic anemia, hyperlipidemia, GERD. He is status post respiratory failure with a trach that has been removed. Most recent hospitalization was here September of this year for symptomatic anemia, was given a bag of blood. He was noted to have a large hiatal hernia. He was referred to [facility] for surgical repair where he had surgery in the past. His PEG tube and tracheostomy had been decannulated prior to this. Today, the patient was [place] the post [place], states that he was dizzy and fell. He fell yesterday also, but did not injure himself, today fell at the post office onto his face. He has a right orbital wall fracture and a right patellar fracture. He was brought in by EMS, initially was reported to be hypotensive. His hemoglobin is 7.1, one PRBC has been ordered. The patient has no other injuries. CT head was negative. CT C-spine was negative. Chest x-ray was negative. CTA demonstrates a large hiatal hernia with some fluid level and distention of the esophagus distally but with no signs of PE. The patient has been hemodynamically stable in the emergency department. He has been given one dose of fentanyl. He complains of leg pain. He has a straight leg brace applied. I evaluated the patient in the emergency department. He has no new shortness of breath. States that he has been dyspneic on exertion, worse lately, but is chronic. No blood in his urine. No blood in his bowel. Did report dizziness. No chest pain. No fever. No nausea. No vomiting. No diarrhea. No rashes. No other complaints. No other changes in medicines. He has not had this event in the past. He has no sick contacts. REVIEW OF SYSTEMS: Pertinent positive and negative per HPI, otherwise regarded as negative. PAST MEDICAL HISTORY: 1. Large hiatal hernia. 2. Chronic anemia. 3. PEG tube placement, status post removal. 4. GERD. 5. Hyperlipidemia. Per chart review, had atrial fibrillation, was intermittent, was supposed to be on amiodarone and Eliquis, but he is not currently taking these. PAST SURGICAL HISTORY: He has had hernia repair x2, inguinal as well as a hiatal hernia repair. He has had a trach and PEG that both had been reversed. He had a heart surgery in 2006 with repair of some valves, but he is not on any anticoagulation. MEDICATIONS: Pravastatin what sounds like a PPI and aspirin. ALLERGIES: CODEINE AND DEMEROL. SOCIAL HISTORY: The patient walks everywhere. Does not drive anymore. He is a lifelong nonsmoker. No tobacco. No alcohol. No . He retired as a labor. He was once many years ago, but is currently single. FAMILY HISTORY: Significant for an CT leading to the of his mother in her 70s and a CVA leading to of his father at age 70s. PHYSICAL EXAMINATION: VITAL SIGNS: Today vital signs; temperature is 98.9, blood pressure is 131/79, heart rate is 78, respiratory rate is 16. He is saturating 99% on room air. GENERAL: This is a 79-year-old male lying semi-Strauss's. Mild distress secondary to pain. HEENT: Has trauma about the right eye. He has extraocular movements intact bilaterally. He does have JVD appreciated. Trachea is midline. He has some bruising periorbital of the right eye, mild edema. He has a laceration around the right pentecostalism that has a primary repair with sutures. He has no midline neck tenderness. RESPIRATORY: Equal rise and fall. Bilateral breath sounds clear to auscultation in upper and lower lobes bilaterally. CARDIOVASCULAR: Regular rate and rhythm. ABDOMEN: Soft and nontender. Pelvis is stable. MUSCULOSKELETAL: He has pain about the right leg, it is in a straight leg brace. He has warm extremities. No edema. Strong pulses. Moves extremities well. PSYCH: Normal mood and affect. NEUROLOGIC: Alert and oriented to person, place, time and event. DIAGNOSTIC CRITERIA: Today laboratory; white blood cell count of 8.9, platelets of 338, hemoglobin and hematocrit 7.1 and 23.9 respectively. Chemistry; sodium is 131, potassium 4.0, chloride is 105, CO2 is 20, BUN is 10, creatinine is 0.92, glucose is 92, calcium is 7.6. AST and ALT are 10 and 7. CK is 36. Troponin is 0.016. BNP of 97. He had a D-dimer over 3. INR is 1.2, PT is 14.7. An EKG shows a sinus rhythm with a first-degree AV block. He has low voltage, no ectopy, rate of 75, physiologic left axis. No ST elevation to suggest STEMI. CT brain is negative for intracranial hemorrhage. There is a right inferior orbital floor fracture with air hemorrhage level in the right sinus. CT C-spine, no acute fracture or subluxation. CT facial bones show right maxillary sinus and orbital fractures. No evidence of herniation of intraorbital contents, though there is right orbital floor fracture. Chest x-ray, interstitial opacities which are chronic. X-ray of the knee shows right patellar fracture. CTA of the chest demonstrates no PE. Does have a large hiatal hernia with some masslike mucosal prominence in the region of the gastroesophageal junction. Fluid density and distention in thoracic esophagus. There is patchy airspace disease involving the lingula, consider pneumonitis. Surgical pathology from 10/03/2019, no high-grade dysplasia or malignancy present. ASSESSMENT: 1. Syncope with collapse. 2. Right orbital floor fracture without signs of entrapment. 3. Right patellar fracture and straight leg brace. 4. Hyponatremia. 5. Anemia. 6. History of hiatal hernia, gastroesophageal reflux disease, hyperlipidemia. PLAN: 1. We will admit the patient to telemetry. 2. Orthopedics has been consulted, appreciate their recommendations. 3. Consult face likely, no treatment for the orbital floor fracture. 4. Maintain oxygen equal or greater than 92%. Supplement as needed. 5. No signs of infectious etiology at this time. We will monitor. 6. We will trend troponins x3. 7. Repeat EKG. 8. Obtain echocardiogram. 9. We will do b.i.d. PPI given the large hiatal hernia with debris noted. 10. May need GI consult. 11. One unit of PRBC has been ordered. We will follow up hemoglobin as needed. 12. Pain control as needed. 13. Repeat CBC, BMP, Mag and phosphate levels in the morning. 14. Diet will be regular. N.p.o. after midnight. 15. Access of peripheral IV. 16. Full code. Dr. Wadsworth discussed with the patient. 17. Disposition is telemetry richard. 18. Prophylaxis will be b.i.d. PPI and SCDs for tonight, in the event there is surgical correction tomorrow and given patient's current anemia. Check stool guaiac, which has been ordered. 19. I have updated the patient and answered all questions. Coordinated with the Emergency Department staff. Discussed with Dr. Wadsworth. Plan can be updated as needed. Job ID: [id number]
[2019-12-16 14:35] VITALS: BMI 20.4
--- NOTE | 2019-12-16 16:21 | PRG ---
DATE OF SERVICE: 12/16/2019 SUBJECTIVE: The patient was seen this morning during rounds with Dr. Wadsworth. He was sitting up in bed with no signs of acute distress. The patient is seen by Orthopedic Surgery today, who recommended nonoperative management of the right patella fracture. The patient was tolerating a regular diet. He has not worked with Physical and Occupational Therapy yet. The patient had a syncopal or near syncopal type episode which caused his fall. Echo is pending. Carotid ultrasound has been ordered. Fecal occult blood test has also been ordered. Previously, has a history of gastric ulcer and has had a colonoscopy within the past year, where one polyp was removed. The patient reports he was feeling weak the day of the fall. Says he is feeling fine now. He has received 1-unit of packed red blood cells in the OR. Reports recent normal stools. OBJECTIVE: VITAL SIGNS: Temperature 96.4, pulse 68, respirations 19, oxygen saturation 99% on room air, blood pressure 156/77. GENERAL: Well-appearing elderly male, sitting up in bed with no signs of acute distress. PULMONARY: Equal chest rise and fall. Clear breath sounds bilaterally. No signs of acute respiratory distress. CARDIAC: Regular rate and rhythm. GI: Abdomen is soft, nontender, nondistended. EXTREMITIES: 2+ pulses in all extremities. Gross motor and sensation intact. Knee immobilizer to right lower extremity with dressing that is clean, dry, and intact. NEURO: GCS is 15. LABORATORY FINDINGS: White count 5.1, hemoglobin 7.7, hematocrit 25.0, platelets 331. Sodium 132, potassium 4.0, chloride 107, bicarb 24, BUN 9, creatinine 0.74, glucose 92, phosphorus 3.1, magnesium 2.0. DIAGNOSTIC FINDINGS: There are no new diagnostic findings to report. ASSESSMENT: 1. Status post syncopal fall at home. 2. Right inferior orbital wall fracture, nonoperative. 3. Right patellar fracture, nonoperative. 4. Right forehead laceration, status post repair. 5. History of coronary artery disease, chronic anemia, gastric ulcer, hypertension, hyperlipidemia, and hiatal hernia. PLAN: Continue current diet. Restart home medications. Add carotid ultrasound, also complete fecal occult blood test. Continue current pain regimen. Continue physical and occupational therapy. The patient will likely need placement at either acute rehab or nursing home facility. We will ask Case Management to help with placement, although likely not over the weekend. This patient was seen and examined by Dr. Wadsworth and myself this morning during rounds. Job ID: [id number]
[2019-12-16] MEDS: Ferrous Sulfate 325 MG TAB PO SCH (18:01)
[2019-12-16] MEDS: Atorvastatin Calcium 10 MG TAB PO SCH (20:48)
[2019-12-16] MEDS: Ascorbic Acid 500 mg Chewable Tablet PO SCH (20:48)
--- NOTE | 2019-12-16 23:47 | ULT ---
BILATERAL CAROTID DUPLEX ULTRASOUND: HISTORY: Syncope TECHNIQUE: Grayscale, color-flow and spectral Doppler ultrasound imaging of the extracranial carotid artery syst ems was performed bilaterally. FINDINGS: There is mild calcified atherosclerotic plaque seen in the region of the carotid bulbs and proximal r ight internal carotid artery. There is no hemodynamically significant stenosis in the bilateral internal carotid arteries according to the peak systolic velocities and the ICA/CCA ratios. The peak systolic velocity in the right ICA measures 79.4 cm/s. The peak systolic velocity in the left ICA measures 73.4 cm/s. The right IC A/CCA ratio is 1.06, and the left ICA/CCA ratio is 0.96. Vertebral arteries: Antegrade flow is demonstrated in the vertebral arteries bilaterally. Findings have not significantly changed when compared to prior carotid duplex ultrasound examination on 11/24/2018. IMPRESSION: No hemodynamically significant stenosis in the bilateral internal carotid arteries.
[2019-12-17] MEDS: Acetaminophen 500 MG TAB PO SCH ×4 (02:57→20:11)
[2019-12-17 04:46] LABS: Hemoglobin 7.9 g/dL (14.0-18.0); Mean Corpuscular HGB CONC 30.4 g/dL (32.0-36.0); Mean Corpuscular Hemoglobin 22.9 pg (27.0-31.0); Mean Corpuscular Volume 75.2 fL (78.0-98.0); Mean Platelet Volume 8.7 fL (7.4-10.4); Platelet Count 330 thou/uL (130-400); RBC Distribution Width 18.7 % (11.5-14.5); Red Blood Cell (RBC) Count 3.45 mill/uL (4.70-6.10); White Blood Cell (WBC) Count 6.9 thou/uL (4.8-10.8)
[2019-12-17 04:56] LABS: Anion Gap 8 mmol/L (10-20); BUN (Urea Nitrogen) 7 mg/dL (8.4-25.7); Calc. Creatinine Clearance 82 mL/min (70-130); Calcium 7.5 mg/dL (7.8-10.44); Carbon Dioxide 22 mmol/L (23-31); Chloride 105 mmol/L (98-107); Estimated GFR-MDRD Greater than 90; Glucose 103 mg/dL (83-110); Phosphorus 3.4 mg/dL (2.3-4.7); Sodium 131 mmol/L (136-145)
[2019-12-17] MEDS: Ibuprofen 200 MG TAB PO SCH ×3 (05:15→23:02)
[2019-12-17] MEDS: traMADol HCl 50 MG TAB PO SCH ×4 (05:16→23:01)
--- NOTE | 2019-12-17 05:47 | PRG ---
DATE OF SERVICE: 12/16/2019 SUBJECTIVE: The patient remains on the telemetry floor. Currently, he is resting, in no acute distress. The patient is receiving his carotid ultrasound currently at bedside. The patient remains in a sinus rhythm on classroom monitor without any ectopy. OBJECTIVE: VITAL SIGNS: Stable, afebrile. GENERAL: Well-appearing elderly male, resting comfortably, in no acute distress. RESPIRATORY: Equal chest rise and fall, respirations are even and nonlabored. DIAGNOSTIC DATA: Carotid Doppler study. IMPRESSION: 1. No hemodynamically significant stenosis in the bilateral internal carotid arteries. 2. Echocardiogram reports ejection fraction is visually estimated at 50% to 55%. Mildly dilated left atrium. Left ventricle size is normal. Impaired relaxation compatible with diastolic dysfunction. Moderate to severe tricuspid regurgitation. Mild to moderate mitral regurgitation. PLAN: Continue supportive care and pain regimen. Continue physical and occupational therapy. The patient is pending placement to rehab or [facility] facility for continued physical and occupational therapy. Job ID: [id number]
[2019-12-17] MEDS: Ascorbic Acid 500 mg Chewable Tablet PO SCH ×2 (08:06→20:12)
[2019-12-17] MEDS: Gabapentin 300 MG CAP PO SCH ×2 (08:06→20:12)
[2019-12-17] MEDS: Ferrous Sulfate 325 MG TAB PO SCH ×2 (08:07→18:01)
[2019-12-17] MEDS ORDERED: PHOS-NAK 1 PKT PACK PO SCH (09:15)
--- NOTE | 2019-12-17 15:10 | PRG ---
DATE OF SERVICE: 12/17/2019 SUBJECTIVE: The patient was seen this morning during rounds. He was sitting up in bed, having breakfast with no signs of acute distress. Nursing reported no acute events. The patient reported pain is well controlled, tolerating diet. Working with Physical and Occupational Therapy. Reports his weakness has improved. OBJECTIVE: VITAL SIGNS: Temperature 97.9, pulse 68, respirations 18, oxygen saturation 96% on room air, blood pressure 118/72. GENERAL: Well-appearing elderly male, sitting up in bed with no signs of acute distress. PULMONARY: Equal chest rise and fall. Clear breath sounds bilaterally. No signs of acute respiratory distress. CARDIAC: Regular rate and rhythm. GI: Abdomen is soft, nontender, nondistended. EXTREMITIES: 2+ pulses in all extremities. Gross motor and sensations intact. No significant swelling noted. NEURO: GCS is 15. LABORATORY FINDINGS: White count 6.9, hemoglobin 7.9, hematocrit 25.9, platelets 330. Sodium 131, potassium 4.0, chloride 105, bicarb 7, creatinine 0.74, phos 3.9, magnesium 2.0. DIAGNOSTIC FINDINGS: Echocardiogram completed yesterday demonstrates EF is visually estimated at 50% to 55%, mildly dilated left atrium, left ventricle size is normal, impaired relaxation capability with diastolic dysfunction, [id number] tricuspid regurgitation, [id number] mitral regurgitation is present. Ultrasound of the bilateral carotids demonstrate no hemodynamically significant stenosis in the bilateral internal carotid arteries. ASSESSMENT: 1. Status post syncopal fall from standing. 2. Right inferior orbital wall fracture, nonoperative. 3. Right patellar fracture, nonoperative. 4. Right forehead laceration, status post repair. 5. Microcytic anemia, due to iron deficiency. 6. History of CAD, gastric ulcer, chronic anemia, hypertension, hyperlipidemia, and hiatal hernia. PLAN: Continue current diet and pain regimen. Continue iron and vitamin C. Continue PT and OT. There has been no cardiac related findings that would explain his syncopal episode. However, the patient has extremely low iron and has a history of iron-deficiency anemia. We will start the patient on Lovenox subcu for DVT prophylaxis. He is ready for discharge at this time. PT has recommended placement in acute rehab facility. We will ask Case Management to start that process and he can be transferred there whenever his insurance approves it. We will also transfer the patient from [facility] to [facility]. This patient was discussed with Dr. Wadsworth before this dictation. Job ID: [id number]
[2019-12-17] MEDS: Enoxaparin Sodium 40 MG/0.4 ML SYRINGE SC SCH (20:11)
[2019-12-17] MEDS: Atorvastatin Calcium 10 MG TAB PO SCH (20:11)
[2019-12-18] MEDS: Acetaminophen 500 MG TAB PO SCH ×4 (03:44→20:49)
[2019-12-18 05:27] LABS: Mean Corpuscular HGB CONC 30.8 g/dL (32.0-36.0); Mean Corpuscular Hemoglobin 23.2 pg (27.0-31.0); Mean Corpuscular Volume 75.2 fL (78.0-98.0); Mean Platelet Volume 8.7 fL (7.4-10.4); Platelet Count 332 thou/uL (130-400); RBC Distribution Width 19.1 % (11.5-14.5); Red Blood Cell (RBC) Count 3.46 mill/uL (4.70-6.10); White Blood Cell (WBC) Count 5.9 thou/uL (4.8-10.8)
[2019-12-18] MEDS: traMADol HCl 50 MG TAB PO SCH ×3 (06:15→17:57)
[2019-12-18] MEDS: Ibuprofen 200 MG TAB PO SCH ×3 (06:16→21:59)
[2019-12-18] MEDS: Ascorbic Acid 500 mg Chewable Tablet PO SCH ×2 (08:56→20:49)
[2019-12-18] MEDS: Ferrous Sulfate 325 MG TAB PO SCH ×2 (08:56→17:57)
[2019-12-18] MEDS: Gabapentin 300 MG CAP PO SCH ×2 (08:56→20:49)
--- NOTE | 2019-12-18 17:36 | PRG ---
DATE OF SERVICE: 12/18/2019 SUBJECTIVE: The patient was seen this morning during rounds. He was lying in bed with no signs of acute distress. He reported his pain is well controlled. He is tolerating a diet. Working with Physical therapy, pending placement in acute rehab. OBJECTIVE: VITAL SIGNS: Temperature 98.3, , oxygen saturations 98% on room air, blood pressure 139/79. GENERAL: Well-appearing elderly male, sitting up in bed with no signs of acute distress. PULMONARY: Equal chest rise and fall. Clear breath sounds bilaterally. No signs of acute respiratory distress. CARDIAC: Regular rate and rhythm. GI: Abdomen is soft, nontender, nondistended. EXTREMITIES: 2+ pulses in all extremities. Gross motor and sensation intact. No significant swelling noted. He has a knee immobilizer to his right lower extremity that is fitting appropriate and intact. LABORATORY FINDINGS: White count 5.9, hemoglobin 8.0, hematocrit 26.0, platelets 332. DIAGNOSTIC FINDINGS: There are no new diagnostic findings to report. ASSESSMENT: 1. Status post syncopal fall from standing. 2. Right orbital wall fracture, nonoperative. 3. Right patellar fracture, nonoperative. 4. Right forehead laceration, status post repair. 5. Syncopal episode, likely due to chronic significant iron deficiency anemia. 6. History of coronary artery disease, gastric ulcer, chronic anemia, hypertension, hyperlipidemia, and hiatal hernia. PLAN: Continue current diet and pain regimen. Continue physical and occupational therapy. Continue Lovenox for DVT prophylaxis. Continue iron and vitamin C. There is no further syncopal workup that is needed at this time. The patient is ready for discharge to rehab facility. We are pending insurance approval. Job ID: [id number]
[2019-12-18] MEDS: Atorvastatin Calcium 10 MG TAB PO SCH (20:49)
[2019-12-18] MEDS: Enoxaparin Sodium 40 MG/0.4 ML SYRINGE SC SCH (20:50)
[2019-12-19] MEDS: traMADol HCl 50 MG TAB PO SCH ×5 (00:51→22:57)
[2019-12-19] MEDS: Acetaminophen 500 MG TAB PO SCH ×4 (02:34→20:28)
[2019-12-19] MEDS: Ibuprofen 200 MG TAB PO SCH ×3 (05:59→22:57)
[2019-12-19] MEDS: Ferrous Sulfate 325 MG TAB PO SCH ×2 (08:29→18:09)
[2019-12-19] MEDS: Ascorbic Acid 500 mg Chewable Tablet PO SCH ×2 (08:29→20:28)
[2019-12-19] MEDS: Gabapentin 300 MG CAP PO SCH ×2 (08:29→20:28)
--- NOTE | 2019-12-19 18:02 | PRG ---
DATE OF SERVICE: 12/19/2019 SUBJECTIVE: The patient was seen this morning during rounds. He was sitting up in bed with no signs of acute distress. He reported having a bowel movement yesterday. He states pain is well controlled. He is working well with physical and occupational therapy. OBJECTIVE: VITAL SIGNS: Temperature 98.2, pulse 71, respirations 18, oxygen saturation 96% on room air, and blood pressure 138/84. GENERAL: Well-appearing elderly male, lying in bed with no signs of acute distress. PULMONARY: Equal chest rise and fall. Clear breath sounds bilaterally. No signs of acute respiratory distress. CARDIAC: Regular rate and rhythm. GI: Abdomen is soft, nontender, nondistended. EXTREMITIES: 2+ pulses in all extremities. Gross motor and sensation intact. He has a knee immobilizer to his right lower extremity that is clean, dry, and intact. NEURO: GCS is 15. LABORATORY FINDINGS: There are no new laboratory findings to discuss. DIAGNOSTIC FINDINGS: There are no new diagnostic findings to discuss. ASSESSMENT: 1. Status post syncopal fall from standing. 2. Right inferior orbital wall fracture, nonoperative. 3. Right patellar fracture, nonoperative. 4. Right forehead laceration, status post repair. 5. History of coronary artery disease, gastric ulcer, chronic anemia, hypertension, hyperlipidemia, and hiatal hernia. PLAN: Continue current diet and pain regimen. No need to start bowel regimen as the patient is having bowel movements. Cardiac workup demonstrated no cardiac cause for syncope. The patient is safe for discharge at this time. He is pending placement at [facility]. This patient was discussed with Dr. Wadsworth before this dictation. Job ID: [id number]
[2019-12-19] MEDS: Atorvastatin Calcium 10 MG TAB PO SCH (20:28)
[2019-12-19] MEDS: Enoxaparin Sodium 40 MG/0.4 ML SYRINGE SC SCH (20:28)
--- NOTE | 2019-12-20 00:01 | PRG ---
DATE OF SERVICE: 12/19/2019 SUBJECTIVE: The patient remains on the surgical floor, currently resting in no acute distress. The patient's nurse states that the pain has been well controlled and he had a small bowel movement earlier today. OBJECTIVE: VITAL SIGNS: Stable, afebrile. PLAN: Continue supportive care and current diet. Continue physical and occupational therapy. The patient is ready for discharge at this time. The patient is pending placement to [facility]. Job ID: [id number]
[2019-12-20] MEDS: Acetaminophen 500 MG TAB PO SCH ×2 (02:03→09:31)
[2019-12-20] MEDS: traMADol HCl 50 MG TAB PO SCH ×2 (05:40→13:04)
[2019-12-20] MEDS: Ibuprofen 200 MG TAB PO SCH (05:40)
[2019-12-20] MEDS: Ferrous Sulfate 325 MG TAB PO SCH (09:31)
[2019-12-20] MEDS: Ascorbic Acid 500 mg Chewable Tablet PO SCH (09:31)
[2019-12-20] MEDS: Gabapentin 300 MG CAP PO SCH (09:31)
[2019-12-20 11:38] VITALS: BP 153/81; TEMP 97.5
== END 2019-12-20 16:02 | disposition home or self-care (01) | DRG 812 ==
LOC: ERS 10:30 → SURG B 12:28 → 2NO 17:40 → SURG A 12-17 19:41
PROVIDERS: ADMIT Surgery; ATTEND Surgery
PROC: 0HQ0XZZ Repair Scalp Skin, External Approach (ICD-10-PCS; principal; 2019-12-15)
PROC: 30233N1 Transfusion of Nonautologous Red Blood Cells into Peripheral Vein, Percutaneous Approach (ICD-10-PCS; 2019-12-15)
DX: D50.9 Iron deficiency anemia, unspecified (principal); S02.31XA Fracture of orbital floor, right side, initial encounter for closed fracture; S82.001A Unspecified fracture of right patella, initial encounter for closed fracture; E87.1 Hypo-osmolality and hyponatremia; W19.XXXA Unspecified fall, initial encounter; Y92.242 Post office as the place of occurrence of the external cause; E78.5 Hyperlipidemia, unspecified; E78.00 Pure hypercholesterolemia, unspecified; K21.9 Gastro-esophageal reflux disease without esophagitis; S01.81XA Laceration without foreign body of other part of head, initial encounter; Z88.5 Allergy status to narcotic agent; Z79.899 Other long term (current) drug therapy
CPT/HCPCS: 12013; 36415; 36430; 70450; 70486; 71045; 71275; 72125; 80048; 80053; 82550; 83540; 83735; 83880; 84100; 84484; 85025; 85027; 85379; 85610; 85730; 86850; 86900; 86901; 93005; 93306; 93880; 96361; 96374; G0390; J1650; J3010; J7050; P9016; Q9967

== ENCOUNTER 2020-06-08 19:58 | Emergency (ER) | payer MEDICARE, MEDICAID ==
[2020-06-08 20:31] LABS: Bilirubin Negative (Negative); Blood, Urine Negative (Negative); Clarity Clear (Clear); Glucose, Urine (Dipstick) Normal (Negative); Ketone, Urine Negative (Negative); Leukocyte Negative Leu/uL (Negative); Nitrite Negative (Negative); Protein, Urine (Dipstick) 10 mg/dL (Neg-Trace); Specific Gravity, Urine 1.015 (1.002-1.036); Urobilinogen 6 mg/dL (Less than 2); pH, Urine 6.5 (5.0-9.0)
[2020-06-08 21:12] LABS: #Eosinphils 0.2 thou/uL (0.0-0.7); #Lymphocytes 0.8 thou/uL (1.20-3.40); #Monocytes 0.4 thou/uL (0.11-0.59); #Neutrophils 3.6 thou/uL (1.40-6.50); %Basophils 0.4 % (0.0-1.0); %Eosinophils 4.6 % (0.0-10.0); %Lymphocytes 16.5 % (21.0-51.0); %Monocytes 7.6 % (0.0-10.0); %Neutrophils 70.8 % (42.0-75.0); Mean Corpuscular HGB CONC 33.9 g/dL (32.0-36.0); Mean Corpuscular Volume 94.4 fL (78.0-98.0); Mean Platelet Volume 7.7 fL (7.4-10.4); Platelet Count 256 thou/uL (130-400); RBC Distribution Width 12.9 % (11.5-14.5); Red Blood Cell (RBC) Count 3.74 mill/uL (4.70-6.10); White Blood Cell (WBC) Count 5.1 thou/uL (4.8-10.8)
[2020-06-08 21:14] LABS: ALT (SGPT) Less than 7 U/L (8-55); AST (SGOT) 13 U/L (5-34); Albumin 2.9 g/dL (3.4-4.8); Alkaline Phosphatase 79 U/L (40-110); Anion Gap 11 mmol/L (10-20); BUN (Urea Nitrogen) 7 mg/dL (8.4-25.7); Bilirubin, Total 0.3 mg/dL (0.2-1.2); Calc. Creatinine Clearance 0 mL/min (70-130); Calcium 7.8 mg/dL (7.8-10.44); Carbon Dioxide 25 mmol/L (23-31); Chloride 103 mmol/L (98-107); Globulin 2.9 g/dL (2.4-3.5); Glucose 95 mg/dL (83-110); Lipase 18 U/L (8-78); Potassium 3.4 mmol/L (3.5-5.1); Protein, Total 5.8 g/dL (5.8-8.1); Sodium 136 mmol/L (136-145)
--- NOTE | 2020-06-08 22:48 | CT ---
CT ABDOMEN NONCONTRAST CT PELVIS NONCONTRAST: (Urolithiasis protocol) DATE: 06/08/2020 HISTORY: 80-year-old male with right flank and right hip pain. Also right lower quadrant abdominal pain and fe renetta. COVID-19 positive. COMPARISON: 11/24/2018 TECHNIQUE: IV injection of iodinated contrast media: None Oral contrast media: None FINDINGS: Other than for urolithiasis, the lack of IV and oral contrast limits the evaluation. On the previous CT, the entire stomach has herniated into the thoracic cavity, and was severely diste nded, suspicious for gastric volvulus. Currently, approximately 20-30% of the stomach has herniated into the left side of the thoracic cavit y. The stomach is distended and filled with ingested material, but not as severely distended as on the p revious CT. There is a new finding of multifocal patchy infiltrates at the bases of bilateral lower lobes and fani gula. Colonic interposition of hepatic flexure is new since prior CT. No small bowel dilation. No abdominal aortic aneurysm. Moderate to large amount of colonic stool. No definite evidence of colonic diverticulitis involving a redundant sigmoid colon. No renal, ureteral, or bladder calculus. Enlarged prostate indents bladder base. Pancreas somewhat difficult to evaluate. Multiple mildly enlarged lymph nodes around the celiac axis and ayush hepatis, nonspecific. No hepatosplenomegaly. New finding of cecum and right colon in the right upper quadrant of the abdominal cavity. This makes it difficult to identify the appendix No ascites or pneumoperitoneum. IMPRESSION: 1) moderate size hiatal hernia. 2) no urolithiasis or obstructive uropathy. 3) enlarged prostate 4) bibasilar infiltrates consistent with pneumonia, presumably COVID-19 pneumonia. 5) the cecum is in the right upper quadrant of the abdominal cavity
== END 2020-06-09 00:25 | disposition home or self-care (01) ==
LOC: ERS 19:58
DX: R10.31 Right lower quadrant pain (principal); U07.1 COVID-19; E78.5 Hyperlipidemia, unspecified; E78.00 Pure hypercholesterolemia, unspecified
CPT/HCPCS: 36415; 74176; 80053; 81003; 83690; 85025

== ENCOUNTER 2022-03-31 11:46 | Inpatient (IN) | payer MEDICARE, MEDICAID ==
[2022-03-31 12:27] LABS: Hemoglobin 12.4 g/dL (14.0-18.0); Mean Corpuscular HGB CONC 32.3 g/dL (32.0-36.0); Mean Corpuscular Hemoglobin 31.7 pg (27.0-31.0); Mean Corpuscular Volume 98.3 fL (78.0-98.0); Mean Platelet Volume 9.1 fL (7.4-10.4); Platelet Count 156 thou/uL (130-400); RBC Distribution Width 14.4 % (11.5-14.5); Red Blood Cell (RBC) Count 3.92 mill/uL (4.70-6.10); White Blood Cell (WBC) Count 14.3 thou/uL (4.8-10.8)
[2022-03-31 12:58] LABS: ALT (SGPT) Less than 7 U/L (8-55); AST (SGOT) 12 U/L (5-34); Albumin 2.8 g/dL (3.4-4.8); Alkaline Phosphatase 71 U/L (40-110); Anion Gap 12 mmol/L (10-20); BUN (Urea Nitrogen) 33 mg/dL (8.4-25.7); Bilirubin, Total 0.7 mg/dL (0.2-1.2); CK (CPK) 87 U/L (30-200); Calc. Creatinine Clearance 0 mL/min (70-130); Calcium 8.5 mg/dL (7.8-10.44); Carbon Dioxide 25 mmol/L (23-31); Estimated GFR 56; Globulin 3.1 g/dL (2.4-3.5); Glucose 150 mg/dL (83-110); Potassium 4.1 mmol/L (3.5-5.1); Protein, Total 5.9 g/dL (5.8-8.1)
[2022-03-31 12:59] LABS: Band 15 % (5-11); Lymphocytes 7 % (21-51); MDiff Complete? YES; Monocytes 4 % (0-10); Neutrophil 74 % (42-75); RBC Morphology Normal
[2022-03-31 13:03] LABS: CKMB 1.3 ng/mL (0-6.6)
[2022-03-31 13:26] LABS: Chloride 104 mmol/L (98-107); Sodium 137 mmol/L (136-145)
[2022-03-31] MEDS ORDERED: Guaifenesin DM 100-10/5 ML UDCUP PO PRN (14:38)
[2022-03-31] MEDS ORDERED: Ondansetron PF 4 MG/2 ML Vial IVP PRN (14:38)
[2022-03-31] MEDS ORDERED: Senokot S 8.6-50 MG TAB PO PRN (14:38)
[2022-03-31] MEDS ORDERED: Nitroglycerin 0.4 MG TAB (25 Tab Bottle) SL PRN (14:46)
[2022-03-31] MEDS ORDERED: Aspirin Chewable 81 MG TAB PO SCH (15:15)
[2022-03-31] MEDS: Carbidopa/Levodopa 25-100 mg Tablet PO SCH ×2 (18:12→21:04)
[2022-03-31 19:16] LABS: Troponin I 0.235 ng/mL (< 0.028)
[2022-03-31] MEDS ORDERED: Famotidine/PF 20 mg/2ml Vial SLOW IVP SCH (21:00)
[2022-03-31] MEDS ORDERED: Famotidine 20 MG TAB PO SCH (21:00)
[2022-03-31] MEDS: Gabapentin 300 MG CAP PO SCH (21:05)
[2022-03-31] MEDS: Famotidine 20 MG TAB PO SCH (21:05)
[2022-03-31] MEDS: Famotidine/PF 20 mg/2ml Vial SLOW IVP SCH (21:06)
[2022-03-31 23:25] LABS: CKMB 1.4 ng/mL (0-6.6)
[2022-04-01 05:35] LABS: Band 12 % (5-11); Hemoglobin 13.8 g/dL (14.0-18.0); Hypochromia SLIGHT = 6-15 cells (100X) (0-5/hpf); Lymphocytes 7 % (21-51); MDiff Complete? YES; Mean Corpuscular HGB CONC 31.4 g/dL (32.0-36.0); Mean Corpuscular Hemoglobin 31.9 pg (27.0-31.0); Mean Platelet Volume 10.4 fL (7.4-10.4); Monocytes 8 % (0-10); Neutrophil 73 % (42-75); Platelet Count 124 thou/uL (130-400); Platelet Morphology Comment Appears Adequate; RBC Distribution Width 14.8 % (11.5-14.5); Red Blood Cell (RBC) Count 4.33 mill/uL (4.70-6.10); White Blood Cell (WBC) Count 14.1 thou/uL (4.8-10.8)
[2022-04-01 06:22] LABS: BUN (Urea Nitrogen) 38 mg/dL (8.4-25.7); Calc. Creatinine Clearance 39 mL/min (70-130); Calcium 8.8 mg/dL (7.8-10.44); Carbon Dioxide 15 mmol/L (23-31); Cardiac Risk 5.3 (Less than 4.5); Chloride 106 mmol/L (98-107); Cholesterol 116 mg/dl (< 200 Desired); Estimated GFR 52; Glucose 107 mg/dL (83-110); HDL Cholesterol 22 mg/dL (>60 Neg Risk); LDL Cholesterol, Calculated 66 mg/dL; Potassium 5.3 mmol/L (3.5-5.1); Sodium 138 mmol/L (136-145); Triglycerides 141 mg/dL (Less than 150)
[2022-04-01 06:27] LABS: Anion Gap 22 mmol/L (10-20)
[2022-04-01] MEDS ORDERED: Enoxaparin Sodium 40 MG/0.4 ML SYRINGE SC SCH (09:00)
[2022-04-01] MEDS: Carbidopa/Levodopa 25-100 mg Tablet PO SCH ×3 (09:13→20:24)
[2022-04-01] MEDS: Aspirin Chewable 81 MG TAB PO SCH (09:13)
[2022-04-01] MEDS: Gabapentin 300 MG CAP PO SCH ×2 (09:13→20:24)
[2022-04-01] MEDS ORDERED: Lisinopril 2.5 MG TAB PO SCH (12:21)
[2022-04-01] MEDS ORDERED: Azithromycin 250 MG TAB PO SCH (13:30)
[2022-04-01] MEDS: cefTRIAXone\\ROCEPHIN 1 GM in Sodium Chloride 0.9% 100 ML IVPB SCH (15:22)
[2022-04-01] MEDS: Acetaminophen 325 MG TAB PO PRN ×2 (17:50→20:25)
[2022-04-01] MEDS: Famotidine 20 MG TAB PO SCH (20:24)
[2022-04-01] MEDS: Famotidine/PF 20 mg/2ml Vial SLOW IVP SCH (20:25)
[2022-04-02 00:57] LABS: #Lymphocytes 1.1 thou/uL (1.20-3.40); #Neutrophils 7.4 thou/uL (1.40-6.50); %Eosinophils 0.2 % (0.0-10.0); %Lymphocytes 11.6 % (21.0-51.0); %Monocytes 10.6 % (0.0-10.0); %Neutrophils 77.6 % (42.0-75.0); Hemoglobin 12.6 g/dL (14.0-18.0); Mean Corpuscular HGB CONC 31.6 g/dL (32.0-36.0); Mean Corpuscular Hemoglobin 31.2 pg (27.0-31.0); Mean Corpuscular Volume 98.9 fL (78.0-98.0); Mean Platelet Volume 9.6 fL (7.4-10.4); Platelet Count 155 thou/uL (130-400); RBC Distribution Width 14.8 % (11.5-14.5); Red Blood Cell (RBC) Count 4.03 mill/uL (4.70-6.10); White Blood Cell (WBC) Count 9.5 thou/uL (4.8-10.8)
[2022-04-02 01:14] LABS: Anion Gap 15 mmol/L (10-20); BUN (Urea Nitrogen) 52 mg/dL (8.4-25.7); Calc. Creatinine Clearance 29 mL/min (70-130); Calcium 8.4 mg/dL (7.8-10.44); Carbon Dioxide 20 mmol/L (23-31); Chloride 106 mmol/L (98-107); Estimated GFR 36; Glucose 145 mg/dL (83-110); Magnesium 2.2 mg/dL (1.6-2.6); Potassium 4.1 mmol/L (3.5-5.1); Sodium 137 mmol/L (136-145)
[2022-04-02 01:20] LABS: Troponin I 0.156 ng/mL (< 0.028)
[2022-04-02 01:57] LABS: Bilirubin Negative (Negative); Blood, Urine 1+ (Negative); Clarity Turbid (Clear); Glucose, Urine (Dipstick) Normal (Negative); Ketone, Urine Negative (Negative); Leukocyte 500 Leu/uL (Negative); Nitrite Negative (Negative); Protein, Urine (Dipstick) 50 mg/dL (Neg-Trace); Specific Gravity, Urine 1.014 (1.002-1.036); Urobilinogen Normal mg/dL (Less than 2)
[2022-04-02 02:07] LABS: Bacteria/HPF 2+ HPF (None Seen); RBC/HPF 0-3 HPF (0-3); Squamous Epithelial 0-3 HPF (0-3)
[2022-04-02 02:09] LABS: Urine Culture Reflex Yes Yes
[2022-04-02] MEDS ORDERED: Lisinopril 2.5 MG TAB PO SCH ×2 (09:00→09:45)
[2022-04-02] MEDS: Enoxaparin Sodium 30 MG/0.3 ML SYRINGE SC SCH (10:24)
[2022-04-02] MEDS: Gabapentin 300 MG CAP PO SCH ×2 (10:25→21:23)
[2022-04-02] MEDS: Azithromycin 250 MG TAB PO SCH (10:25)
[2022-04-02] MEDS: Aspirin Chewable 81 MG TAB PO SCH (10:25)
[2022-04-02] MEDS: Carbidopa/Levodopa 25-100 mg Tablet PO SCH ×3 (10:25→21:24)
[2022-04-02] MEDS ORDERED: Sodium Chloride 0.9% 500 ML IV SCH ×2 (10:45→15:15)
[2022-04-02] MEDS ORDERED: Sodium Chloride 0.9% 1,000 ML IV SCH (13:45)
[2022-04-02] MEDS: cefTRIAXone\\ROCEPHIN 1 GM in Sodium Chloride 0.9% 100 ML IVPB SCH (14:53)
[2022-04-02] MEDS: Famotidine 20 MG TAB PO SCH (21:23)
[2022-04-02] MEDS: Lisinopril 2.5 MG TAB PO SCH (21:23)
[2022-04-02] MEDS: Famotidine/PF 20 mg/2ml Vial SLOW IVP SCH (21:24)
[2022-04-03 04:48] LABS: #Eosinphils 0.1 thou/uL (0.0-0.7); #Lymphocytes 1.1 thou/uL (1.20-3.40); #Monocytes 0.8 thou/uL (0.11-0.59); #Neutrophils 11.1 thou/uL (1.40-6.50); %Eosinophils 0.5 % (0.0-10.0); %Lymphocytes 8.6 % (21.0-51.0); %Monocytes 6.1 % (0.0-10.0); %Neutrophils 84.8 % (42.0-75.0); Hemoglobin 11.7 g/dL (14.0-18.0); Mean Corpuscular HGB CONC 31.8 g/dL (32.0-36.0); Mean Corpuscular Hemoglobin 31.7 pg (27.0-31.0); Mean Corpuscular Volume 99.5 fL (78.0-98.0); Mean Platelet Volume 9.1 fL (7.4-10.4); Platelet Count 197 thou/uL (130-400); RBC Distribution Width 14.8 % (11.5-14.5); Red Blood Cell (RBC) Count 3.71 mill/uL (4.70-6.10); White Blood Cell (WBC) Count 13.1 thou/uL (4.8-10.8)
[2022-04-03 05:29] LABS: ALT (SGPT) Less than 7 U/L (8-55); AST (SGOT) 12 U/L (5-34); Albumin 2.5 g/dL (3.4-4.8); Alkaline Phosphatase 57 U/L (40-110); Anion Gap 14 mmol/L (10-20); BUN (Urea Nitrogen) 56 mg/dL (8.4-25.7); Bilirubin, Total 0.4 mg/dL (0.2-1.2); Calc. Creatinine Clearance 27 mL/min (70-130); Calcium 8.1 mg/dL (7.8-10.44); Carbon Dioxide 21 mmol/L (23-31); Chloride 110 mmol/L (98-107); Estimated GFR 34; Globulin 2.6 g/dL (2.4-3.5); Glucose 136 mg/dL (83-110); Magnesium 2.3 mg/dL (1.6-2.6); Phosphorus 3.3 mg/dL (2.3-4.7); Potassium 3.7 mmol/L (3.5-5.1); Protein, Total 5.1 g/dL (5.8-8.1); Sodium 141 mmol/L (136-145)
[2022-04-03] MEDS ORDERED: Lactated Ringer's 1,000 ML IV SCH (07:45)
[2022-04-03] MEDS: Enoxaparin Sodium 30 MG/0.3 ML SYRINGE SC SCH (08:41)
[2022-04-03] MEDS: Aspirin Chewable 81 MG TAB PO SCH (08:41)
[2022-04-03] MEDS: Azithromycin 250 MG TAB PO SCH (08:41)
[2022-04-03] MEDS: Gabapentin 300 MG CAP PO SCH ×2 (08:42→21:03)
[2022-04-03] MEDS: Carbidopa/Levodopa 25-100 mg Tablet PO SCH ×3 (08:42→21:03)
[2022-04-03] MEDS ORDERED: OLANZapine 10 MG VIAL IM SCH (16:45)
[2022-04-03] MEDS ORDERED: Sterile Water 10 ML VIAL FS SCH (16:45)
[2022-04-03] MEDS: cefTRIAXone\\ROCEPHIN 2 GM in Sodium Chloride 0.9% 100 ML IVPB SCH (18:35)
[2022-04-03] MEDS: Famotidine/PF 20 mg/2ml Vial SLOW IVP SCH (21:03)
[2022-04-03] MEDS: Famotidine 20 MG TAB PO SCH (21:03)
[2022-04-04] MEDS ORDERED: Lactated Ringer's 500 ML IV SCH ×2 (04:00→08:00)
[2022-04-04 04:51] LABS: #Eosinphils 0.1 thou/uL (0.0-0.7); #Lymphocytes 1.1 thou/uL (1.20-3.40); #Monocytes 0.8 thou/uL (0.11-0.59); #Neutrophils 9.7 thou/uL (1.40-6.50); %Basophils 0.1 % (0.0-1.0); %Eosinophils 0.9 % (0.0-10.0); %Lymphocytes 9.5 % (21.0-51.0); %Monocytes 6.4 % (0.0-10.0); %Neutrophils 83.1 % (42.0-75.0); Hemoglobin 10.9 g/dL (14.0-18.0); Mean Corpuscular HGB CONC 32.3 g/dL (32.0-36.0); Mean Corpuscular Hemoglobin 32.3 pg (27.0-31.0); Mean Platelet Volume 9.4 fL (7.4-10.4); Platelet Count 237 thou/uL (130-400); RBC Distribution Width 14.9 % (11.5-14.5); Red Blood Cell (RBC) Count 3.36 mill/uL (4.70-6.10); White Blood Cell (WBC) Count 11.7 thou/uL (4.8-10.8)
[2022-04-04 06:02] LABS: ALT (SGPT) Less than 7 U/L (8-55); AST (SGOT) 13 U/L (5-34); Albumin 2.4 g/dL (3.4-4.8); Alkaline Phosphatase 52 U/L (40-110); BUN (Urea Nitrogen) 56 mg/dL (8.4-25.7); Calc. Creatinine Clearance 27 mL/min (70-130); Calcium 8.1 mg/dL (7.8-10.44); Carbon Dioxide 24 mmol/L (23-31); Chloride 109 mmol/L (98-107); Estimated GFR 34; Globulin 2.7 g/dL (2.4-3.5); Glucose 129 mg/dL (83-110); Potassium 3.7 mmol/L (3.5-5.1); Protein, Total 5.1 g/dL (5.8-8.1); Sodium 142 mmol/L (136-145)
[2022-04-04 07:05] LABS: Anion Gap 13 mmol/L (10-20)
[2022-04-04 07:44] LABS: Bilirubin, Total 0.3 mg/dL (0.2-1.2)
[2022-04-04] MEDS ORDERED: Midodrine HCl 5 MG TAB PO SCH ×2 (09:18→09:30)
[2022-04-04] MEDS: Lisinopril 2.5 MG TAB PO SCH (09:37)
[2022-04-04] MEDS: Gabapentin 300 MG CAP PO SCH ×2 (11:17→22:34)
[2022-04-04] MEDS: Enoxaparin Sodium 30 MG/0.3 ML SYRINGE SC SCH (11:17)
[2022-04-04] MEDS: Carbidopa/Levodopa 25-100 mg Tablet PO SCH ×3 (11:17→22:32)
[2022-04-04] MEDS: Azithromycin 250 MG TAB PO SCH (11:17)
[2022-04-04] MEDS: Aspirin Chewable 81 MG TAB PO SCH (11:17)
[2022-04-04] MEDS: Midodrine HCl 5 MG TAB PO SCH ×2 (14:56→22:35)
[2022-04-04] MEDS: cefTRIAXone\\ROCEPHIN 2 GM in Sodium Chloride 0.9% 100 ML IVPB SCH (17:45)
[2022-04-04] MEDS: Famotidine/PF 20 mg/2ml Vial SLOW IVP SCH (21:22)
[2022-04-04] MEDS: Famotidine 20 MG TAB PO SCH (22:32)
[2022-04-05 04:42] LABS: #Eosinphils 0.1 thou/uL (0.0-0.7); #Lymphocytes 1.4 thou/uL (1.20-3.40); #Monocytes 0.6 thou/uL (0.11-0.59); #Neutrophils 9.5 thou/uL (1.40-6.50); %Basophils 0.3 % (0.0-1.0); %Eosinophils 1.3 % (0.0-10.0); %Lymphocytes 11.8 % (21.0-51.0); %Monocytes 4.8 % (0.0-10.0); Hemoglobin 11.4 g/dL (14.0-18.0); Mean Corpuscular HGB CONC 32.3 g/dL (32.0-36.0); Mean Corpuscular Hemoglobin 31.8 pg (27.0-31.0); Mean Corpuscular Volume 98.4 fL (78.0-98.0); Mean Platelet Volume 9.2 fL (7.4-10.4); Platelet Count 252 thou/uL (130-400); RBC Distribution Width 14.8 % (11.5-14.5); Red Blood Cell (RBC) Count 3.59 mill/uL (4.70-6.10); White Blood Cell (WBC) Count 11.6 thou/uL (4.8-10.8)
[2022-04-05 05:16] LABS: Anion Gap 16 mmol/L (10-20); BUN (Urea Nitrogen) 49 mg/dL (8.4-25.7); Calc. Creatinine Clearance 28 mL/min (70-130); Calcium 8.2 mg/dL (7.8-10.44); Carbon Dioxide 22 mmol/L (23-31); Chloride 115 mmol/L (98-107); Estimated GFR 34; Glucose 111 mg/dL (83-110); Magnesium 2.4 mg/dL (1.6-2.6); Potassium 3.8 mmol/L (3.5-5.1); Sodium 149 mmol/L (136-145)
[2022-04-05] MEDS: Aspirin Chewable 81 MG TAB PO SCH (09:59)
[2022-04-05] MEDS: Midodrine HCl 5 MG TAB PO SCH ×3 (10:00→20:53)
[2022-04-05] MEDS: Gabapentin 300 MG CAP PO SCH ×2 (10:00→20:52)
[2022-04-05] MEDS: Carbidopa/Levodopa 25-100 mg Tablet PO SCH ×3 (10:00→20:57)
[2022-04-05] MEDS: Enoxaparin Sodium 30 MG/0.3 ML SYRINGE SC SCH (10:01)
[2022-04-05] MEDS: cefTRIAXone\\ROCEPHIN 2 GM in Sodium Chloride 0.9% 100 ML IVPB SCH (17:47)
[2022-04-05] MEDS: Famotidine/PF 20 mg/2ml Vial SLOW IVP SCH (20:51)
[2022-04-05] MEDS: Famotidine 20 MG TAB PO SCH (20:57)
[2022-04-06] MEDS ORDERED: Metoprolol Tartrate 5 MG/5 ML VIAL IVP PRN (01:33)
[2022-04-06 05:24] LABS: Anion Gap 15 mmol/L (10-20); BUN (Urea Nitrogen) 43 mg/dL (8.4-25.7); Calc. Creatinine Clearance 29 mL/min (70-130); Calcium 8.3 mg/dL (7.8-10.44); Carbon Dioxide 22 mmol/L (23-31); Chloride 119 mmol/L (98-107); Estimated GFR 37; Glucose 103 mg/dL (83-110); Potassium 4.1 mmol/L (3.5-5.1); Sodium 152 mmol/L (136-145)
[2022-04-06 05:49] LABS: Band 10 % (5-11); Eosinophils 3 % (0-10); Hemoglobin 11.3 g/dL (14.0-18.0); Lymphocytes 7 % (21-51); MDiff Complete? YES; Mean Corpuscular HGB CONC 31.4 g/dL (32.0-36.0); Mean Corpuscular Hemoglobin 30.9 pg (27.0-31.0); Mean Corpuscular Volume 98.7 fL (78.0-98.0); Mean Platelet Volume 10.5 fL (7.4-10.4); Monocytes 4 % (0-10); Myelocyte 2 % (0-0); Neutrophil 74 % (42-75); Platelet Count 192 thou/uL (130-400); Red Blood Cell (RBC) Count 3.66 mill/uL (4.70-6.10); White Blood Cell (WBC) Count 12.9 thou/uL (4.8-10.8)
[2022-04-06] MEDS: Gabapentin 300 MG CAP PO SCH ×2 (08:57→21:07)
[2022-04-06] MEDS: Carbidopa/Levodopa 25-100 mg Tablet PO SCH ×3 (08:57→21:07)
[2022-04-06] MEDS: Aspirin Chewable 81 MG TAB PO SCH (08:57)
[2022-04-06] MEDS: Midodrine HCl 5 MG TAB PO SCH ×3 (08:57→21:08)
[2022-04-06] MEDS: Enoxaparin Sodium 30 MG/0.3 ML SYRINGE SC SCH (08:58)
[2022-04-06] MEDS: Dextrose 5% in Water 1,000 ML IV SCH (17:00)
[2022-04-06] MEDS: cefTRIAXone\\ROCEPHIN 2 GM in Sodium Chloride 0.9% 100 ML IVPB SCH (17:00)
[2022-04-06] MEDS: Famotidine 20 MG TAB PO SCH (21:07)
[2022-04-06] MEDS: Famotidine/PF 20 mg/2ml Vial SLOW IVP SCH (21:08)
[2022-04-07] MEDS: Dextrose 5% in Water 1,000 ML IV SCH ×2 (03:55→17:52)
[2022-04-07] MEDS: Enoxaparin Sodium 30 MG/0.3 ML SYRINGE SC SCH (09:16)
[2022-04-07] MEDS: Carbidopa/Levodopa 25-100 mg Tablet PO SCH ×4 (09:17→21:58)
[2022-04-07] MEDS: Midodrine HCl 5 MG TAB PO SCH ×4 (09:17→21:59)
[2022-04-07] MEDS: Gabapentin 300 MG CAP PO SCH ×2 (09:17→21:59)
[2022-04-07] MEDS: Aspirin Chewable 81 MG TAB PO SCH (09:17)
[2022-04-07 10:49] LABS: #Eosinphils 0.4 thou/uL (0.0-0.7); #Lymphocytes 1.3 thou/uL (1.20-3.40); #Monocytes 0.6 thou/uL (0.11-0.59); #Neutrophils 8.7 thou/uL (1.40-6.50); %Basophils 0.1 % (0.0-1.0); %Lymphocytes 11.8 % (21.0-51.0); %Monocytes 5.4 % (0.0-10.0); %Neutrophils 78.5 % (42.0-75.0); Hemoglobin 11.5 g/dL (14.0-18.0); Mean Corpuscular HGB CONC 30.9 g/dL (32.0-36.0); Mean Corpuscular Hemoglobin 31.2 pg (27.0-31.0); Mean Platelet Volume 10.3 fL (7.4-10.4); Platelet Count 205 thou/uL (130-400); RBC Distribution Width 14.9 % (11.5-14.5); Red Blood Cell (RBC) Count 3.68 mill/uL (4.70-6.10)
[2022-04-07 11:28] LABS: Anion Gap 14 mmol/L (10-20); BUN (Urea Nitrogen) 40 mg/dL (8.4-25.7); Calc. Creatinine Clearance 33 mL/min (70-130); Calcium 8.3 mg/dL (7.8-10.44); Carbon Dioxide 25 mmol/L (23-31); Chloride 122 mmol/L (98-107); Estimated GFR 44; Glucose 123 mg/dL (83-110); Potassium 3.9 mmol/L (3.5-5.1); Sodium 157 mmol/L (136-145)
[2022-04-07] MEDS ORDERED: Dextrose 5% in Water 1,000 ML IV SCH (11:30)
[2022-04-07 14:57] VITALS: BMI 17.8
[2022-04-07 17:14] LABS: Anion Gap 11 mmol/L (10-20); BUN (Urea Nitrogen) 35 mg/dL (8.4-25.7); Calc. Creatinine Clearance 31 mL/min (70-130); Calcium 8.4 mg/dL (7.8-10.44); Carbon Dioxide 27 mmol/L (23-31); Chloride 118 mmol/L (98-107); Estimated GFR 42; Glucose 142 mg/dL (83-110); Potassium 3.5 mmol/L (3.5-5.1); Sodium 152 mmol/L (136-145)
[2022-04-07] MEDS: cefTRIAXone\\ROCEPHIN 2 GM in Sodium Chloride 0.9% 100 ML IVPB SCH (17:52)
[2022-04-07] MEDS: Famotidine/PF 20 mg/2ml Vial SLOW IVP SCH (21:56)
[2022-04-07] MEDS: Famotidine 20 MG TAB PO SCH (21:58)
[2022-04-08] MEDS: Dextrose 5% in Water 1,000 ML IV SCH ×2 (02:46→14:56)
[2022-04-08 05:17] LABS: Anion Gap 12 mmol/L (10-20); BUN (Urea Nitrogen) 32 mg/dL (8.4-25.7); Carbon Dioxide 26 mmol/L (23-31); Chloride 116 mmol/L (98-107); Potassium 3.5 mmol/L (3.5-5.1); Sodium 150 mmol/L (136-145)
[2022-04-08 05:18] LABS: Calc. Creatinine Clearance 34 mL/min (70-130); Calcium 8.3 mg/dL (7.8-10.44); Estimated GFR 47; Glucose 142 mg/dL (83-110)
[2022-04-08] MEDS: Enoxaparin Sodium 30 MG/0.3 ML SYRINGE SC SCH (09:10)
[2022-04-08] MEDS: Carbidopa/Levodopa 25-100 mg Tablet PO SCH ×4 (09:10→22:50)
[2022-04-08] MEDS: Midodrine HCl 5 MG TAB PO SCH ×4 (09:10→22:52)
[2022-04-08] MEDS: Aspirin Chewable 81 MG TAB PO SCH (09:10)
[2022-04-08] MEDS: Gabapentin 300 MG CAP PO SCH ×3 (09:10→22:24)
[2022-04-08] MEDS: cefTRIAXone\\ROCEPHIN 2 GM in Sodium Chloride 0.9% 100 ML IVPB SCH (17:33)
[2022-04-08] MEDS: Famotidine/PF 20 mg/2ml Vial SLOW IVP SCH (22:08)
[2022-04-08] MEDS: Famotidine 20 MG TAB PO SCH (22:24)
[2022-04-09] MEDS: Dextrose 5% in Water 1,000 ML IV SCH ×3 (00:04→21:11)
[2022-04-09 08:16] LABS: Anion Gap 13 mmol/L (10-20); BUN (Urea Nitrogen) 23 mg/dL (8.4-25.7); Calc. Creatinine Clearance 39 mL/min (70-130); Carbon Dioxide 24 mmol/L (23-31); Chloride 113 mmol/L (98-107); Estimated GFR 54; Glucose 130 mg/dL (83-110); Potassium 3.8 mmol/L (3.5-5.1); Sodium 146 mmol/L (136-145)
[2022-04-09] MEDS: Gabapentin 300 MG CAP PO SCH ×2 (09:58→21:12)
[2022-04-09] MEDS: Midodrine HCl 5 MG TAB PO SCH ×3 (09:58→21:11)
[2022-04-09] MEDS: Carbidopa/Levodopa 25-100 mg Tablet PO SCH ×3 (09:59→21:12)
[2022-04-09] MEDS: Aspirin Chewable 81 MG TAB PO SCH (09:59)
[2022-04-09] MEDS: Enoxaparin Sodium 40 MG/0.4 ML SYRINGE SC SCH (09:59)
[2022-04-09] MEDS: Famotidine 20 MG TAB PO SCH (21:12)
[2022-04-09] MEDS: Famotidine/PF 20 mg/2ml Vial SLOW IVP SCH (21:12)
[2022-04-10] MEDS: Dextrose 5% in Water 1,000 ML IV SCH (06:29)
[2022-04-10 07:37] VITALS: BP 134/70; TEMP 98.2
[2022-04-10] MEDS: Gabapentin 300 MG CAP PO SCH (09:07)
[2022-04-10] MEDS: Aspirin Chewable 81 MG TAB PO SCH (09:07)
[2022-04-10] MEDS: Midodrine HCl 5 MG TAB PO SCH (09:07)
[2022-04-10] MEDS: Carbidopa/Levodopa 25-100 mg Tablet PO SCH (09:07)
[2022-04-10] MEDS: Enoxaparin Sodium 40 MG/0.4 ML SYRINGE SC SCH (09:07)
== END 2022-04-10 11:00 | DRG 689 ==
LOC: ERS 11:46 → ERHOLD 13:39 → 2NO 16:41
PROVIDERS: ADMIT Hospitalist; ATTEND Internal Medicine
DX: N39.0 Urinary tract infection, site not specified (principal); I21.A1 Myocardial infarction type 2; J18.9 Pneumonia, unspecified organism; E87.0 Hyperosmolality and hypernatremia; N17.9 Acute kidney failure, unspecified; I50.22 Chronic systolic (congestive) heart failure; I42.8 Other cardiomyopathies; E87.20 Acidosis, unspecified; I11.0 Hypertensive heart disease with heart failure; E86.0 Dehydration; I25.10 Atherosclerotic heart disease of native coronary artery without angina pectoris; G20 Parkinson's disease; F02.80 Dementia in other diseases classified elsewhere, unspecified severity, without behavioral disturbance, psychotic disturbance, mood disturbance, and anxiety; I48.91 Unspecified atrial fibrillation; Z91.81 History of falling; Z79.82 Long term (current) use of aspirin; Z79.899 Other long term (current) drug therapy; Z88.6 Allergy status to analgesic agent; Z79.1 Long term (current) use of non-steroidal anti-inflammatories (NSAID); R63.0 Anorexia; R41.0 Disorientation, unspecified; L89.609 Pressure ulcer of unspecified heel, unspecified stage; L89.009 Pressure ulcer of unspecified elbow, unspecified stage; L89.209 Pressure ulcer of unspecified hip, unspecified stage; L89.159 Pressure ulcer of sacral region, unspecified stage; E78.00 Pure hypercholesterolemia, unspecified; Z86.010 Personal history of colon polyps
CPT/HCPCS: 36415; 36416; 70450; 71045; 72125; 72131; 80048; 80053; 80061; 81001; 82550; 82553; 83735; 84100; 84484; 85025; 86140; 87077; 87086; 87186; 87811; 93005; 93010; 93306; 94760; J0696; J1650; J2358; J3490; J7030; J7050; J7070; J7120; S0028; U0003; U0005